=== PATIENT | male | born 1980 | race Caucasian/White ===

== ENCOUNTER 2017-11-20 13:37 | Inpatient (IN) | payer OTHER ==
[~2017-11-20] VITALS: Ht 170.2 cm; Wt 74.1 kg
[~2017-11-20 13:37] MED LIST: FLX10 PO; LRT5 PO; METH4PAK4 PO; OXYC-57 PO
[2017-11-20] MEDS ORDERED: LIDOCAINE HCL 2% LOCAL 50ML VIAL ONE (16:43)
[2017-11-20] MEDS: SODIUM CHLORIDE 0.9% 1000ML 1,000 ML IV SCH (17:15)
[2017-11-20 17:16] VITALS: BP 122/74; PULSE 101; TEMP 37.2; BMI 27.6
--- NOTE | 2017-11-20 17:26 | DIAGNOSTIC IMAGING REPORT ---
CHEST ONE VIEW PORTABLE CLINICAL HISTORY: pleurx dyspnea COMPARISON STUDY: 11/18/2017 FINDINGS: Interval placement of a right basilar drainage catheter. Persistent diffuse increase in density right hemithorax. Left lung remains generally clear. Central catheter remains in this. Vena cava. IMPRESSION: Drainage catheter placed right lung base. No evidence for pneumothorax. The above report was generated using voice recognition software. It may contain grammatical, syntax or spelling errors. Electronically signed by: Jovi Tucker M.D. 11/20/2017 5:24 PM Dictated Date/Time: 11/20/2017 5:23 PM
--- NOTE | 2017-11-20 17:31 | History and Physical ---
History & Physical Date of Service Nov 20, 2017. History & Physical H & P Dictated #[id number]
--- NOTE | 2017-11-20 17:39 | History and Physical ---
History & Physical Date of Service Nov 20, 2017. History & Physical Admission Note: Is a 37-year-old male with past medical history significant for alcohol abuse who developed diverticulitis and underwent colon resection last May at [facility]. He had a colostomy which was reversed on 10/30/2017. He is running to multiple problems since that time. He had to be reexplored had an intra-abdominal abscess and grew out VRE from his wound as well as E. coli. I was called as it appeared he had developed a right pleural empyema and they have no thoracic surgeon there to address this problem. I told him to transfer the patient to [facility]. His bowel function appears to have finally come back. NG tube removed 48 hours ago. He states he had a bowel movement today. He still has a leukocytosis. CT scan showed a complex fluid in his right base but no apparent intra-abdominal collection. He has 3 drains in the draining very little. His wound was left open he has retention sutures in but quite frankly, the wound itself is very clean.. The patient's sister is a [employer] and I had a long discussion with her about how this empyema could occur. Reactive effusion in his pleural cavity due to his intra- abdominal process could easily be seeded by organisms. At any rate, I am going to place a Pleurx catheter into this loculated effusion as I do not see a thick rind around fluid. It is my hope that the fluid will drain with the Pleurx we will institute the MIST- 2 protocol. I have explained quite frankly to the patient and his sister that if that is not the operating room thoracoscopic decortication evacuation of this empyema. For specifics of this patient's history and physical please refer to Mr. Eliezer Castañeda's initial note.
--- NOTE | 2017-11-20 17:44 | Procedure Note ---
Procedure Note Date of Service Nov 20, 2017.
[2017-11-20 17:53] LABS: HEMATOCRIT 26.2 % (42-52); HEMOGLOBIN 8.3 g/dL (14.0-18.0); WHITE BLOOD COUNT 19.32 K/uL (4.8-10.8)
[2017-11-20 17:54] LABS: MEAN CELL VOLUME 94.9 fL (80-100); MEAN CORPUSCULAR HEMOGLOBIN 30.1 pg (25-34); MEAN CORPUSCULAR HGB CONC 31.7 g/dl (32-36); MEAN PLATELET VOLUME 8.2 fL (7.4-10.4); PLATELET COUNT 884 K/uL (130-400); RED CELL DISTRIBUTION WIDTH CV 15.6 % (11.5-14.5); RED CELL DISTRIBUTION WIDTH SD 54.2 fL (36.4-46.3)
[2017-11-20 17:58] LABS: PLEURAL FLUID TOTAL PROTEIN 4.7 g/dl
[2017-11-20 18:00] VITALS: BP 124/74; PULSE 99; TEMP 37.1; O2SAT 97
[2017-11-20] MEDS ORDERED: DORNASE ALFA 5 ML in SYRINGE 25 ML IPL SCH (18:00)
[2017-11-20] MEDS ORDERED: CEFEPIME IV 1,000 MG in SYRINGE 0 ML IV SCH (18:00)
[2017-11-20 18:07] LABS: INR 1.1 (0.9-1.1)
[2017-11-20] MEDS: ACETAMINOPHEN IV 1,000 MG in EMPTY BAG 0 ML IV SCH (18:23)
--- NOTE | 2017-11-20 18:34 | Critical Care Consultation ---
Critical Care Consultation Date of Consultation: Nov 20, 2017. Attending Physician: Dav Strong MD Reason for Consultation: Empyema History of Present Illness 37 year-old male transferred from [facility] for management of empyema. He has an extensive recent surgical history at [facility]. In May of last year he had Trujillo procedure for diverticulitis, reversed last month on 10/30. Course complicated by intraabdominal abscess formation, requiring reexploration. Developed complex right pleural effusion, suspicious for empyema , was transferred here for thoracic surgery. PleurX catheter was just inserted, drained approx 100 ml of purulent fluid with gas, pH was 7.1 At [facility] he was on cefepime and ampicillin. Renal failure has been improving, with high urinary output Grew E Coli and VRE from the abdominal wound Two days ago he was started on clear liquids but were held because he developed emesis. Used to be on TPN Past Medical/Surgical History ETOH abuse Diverticular abscess, s/p colon resection with colostomy in May 2017. Reversal of colostomy Abdominal abscess drainage Social History Smoking Status: Current Every Day Smoker Allergies Coded Allergies: No Known Allergies (Unverified , 02/13/08) Home Medications Scheduled Cyclobenzaprine Hcl (Flexeril *), 10 MG PO TID Cyclobenzaprine Hcl (Flexeril *), 10 MG PO TID Hydrocodone/Acetaminophen 5MG/500MG (Vicodin 5MG/500MG), 1-2 TABLETS PO Q4-6HR PRN Methylprednisolone Dosepak (Medrol Dosepak), 0 PKT PO DAILY Oxycodone/Acetaminophen 5MG/325MG (Percocet 5MG/325MG), 1-2 TABLETS PO Q4-6HR PRN Miscellaneous Medications None (Patient States No Home Meds) Current Inpatient Medications Current Inpatient Medications Medications (Trade) Dose Ordered Sig/Porsche Route Start Time Stop Time Status Last Admin Dose Admin Heparin Sodium (Porcine) (Heparin Sq 5000 Unit/0.5ml) 5,000 unit Q12H SQ 11/20/17 17:15 12/20/17 17:14 UNV Alteplase, Recombinant 10 mg/ Syringe 60 ml @ 0 mls/hr Q12@0600,1800 IPL 11/20/17 18:00 11/23/17 06:01 Dornase Judd 5 ml/ Syringe 30 ml @ 0 mls/hr Q12@0600,1800 IPL 11/20/17 18:00 11/23/17 06:01 Sodium Chloride 1,000 ml @ 125 mls/hr Q8H IV 11/20/17 17:15 12/20/17 17:14 Nicotine (Nicoderm Cq 21MG Patch) 1 patch QAM TD 11/21/17 09:00 12/21/17 08:59 Cefepime HCl 1000 mg/Syringe 11 ml @ 5.5 mls/min DAILY@1800 IV 11/20/17 18:00 11/27/17 17:59 Miscellaneous (Remove Nicoderm Patch) 1 ea HS N/A 11/20/17 21:00 12/20/17 20:59 Linezolid 600 mg/ Prmx 300 ml @ 300 mls/hr Q12@0800,2000 IV 11/20/17 20:00 11/27/17 19:59 Acetaminophen 1000 mg/Empty Bag 100 ml @ 400 mls/hr Q8H IV 11/20/17 18:00 12/20/17 17:59 Pantoprazole Sodium 40 mg/ Syringe 10 ml @ 5 mls/min DAILY@11 IV 11/21/17 11:00 12/21/17 10:59 Ondansetron HCl (Zofran Inj) 4 mg Q6H PRN IV 11/20/17 17:15 12/20/17 17:14 Morphine Sulfate (MoRPHine SULFATE INJ) 2 mg Q3H PRN IV 11/20/17 17:15 12/04/17 17:14 Metronidazole 500 mg/Prmx 100 ml @ 100 mls/hr Q8H IV 11/20/17 20:00 11/27/17 19:59 Review of Systems Constitutional: No fever, No chills Respiratory: + shortness of breath Cardiovascular: No chest pain Abdomen: + pain, + nausea, + vomiting Genitourinary - Male: No hematuria Neurologic: No weakness Physical Exam Date Time Temp Pulse Resp B/P (MAP) Pulse Ox O2 Delivery O2 Flow Rate FiO2 11/20/17 17:16 37.2 101 18 122/74 Nasal Cannula 2.0 General: Young male, in mild distress Heent: NC/AT Lungs: Diminished breath sounds on the right, fairly clear. Right sided PleurX CVS:S1S2 regular Abd: Laparotomy wound with retention sutures. 3 drains Ext: Right arm PICC Skin: extensive tattoo work [employer]IM[employer]IVE: No deficit. Laboratory Results Last 24 Hours Test 11/20/17 16:50 11/20/17 17:34 Pleural Fluid Source RIGHT LUNG Pleural Fluid Color RED Pleural Fluid Appearance BLOODY Pleural Fluid WBC 1001 /uL Pleural Fluid RBC 89313 /uL Pleural Fluid pH 7.09 Pleural Fluid Polynuclear WBCs % 84.7 % Pleural Fluid Mononuclear WBCs % 15.3 % Pleural Fluid Total Protein 4.7 g/dl Pleural Fluid Glucose 27 mg/dl Pleural Fluid Amylase 35 U/L White Blood Count 19.32 K/uL Red Blood Count 2.76 M/uL Hemoglobin 8.3 g/dL Hematocrit 26.2 % Mean Corpuscular Volume 94.9 fL Mean Corpuscular Hemoglobin 30.1 pg Mean Corpuscular Hemoglobin Concent 31.7 g/dl RDW Standard Deviation 54.2 fL RDW Coefficient of Variation 15.6 % Platelet Count 884 K/uL Mean Platelet Volume 8.2 fL Diagnostic Results CXR today: Interval placement of a right basilar drainage catheter. Persistent diffuse increase in density right hemithorax. Left lung remains generally clear. Central catheter remains in this. Vena cava. Assessment & Plan Abdominal abscess, post colectomy Right sided empyema H/o alcohol abuse Plan: Maintain PleurX Starting MIST 2 protocol (dornase with tPA infiltration), to attempt to break- up the loculations. Otherwise, he would require VATS Empiric broad spectrum coverage. Started Zyvox, continue cefepime, added Flagyl for anaerobic coverage Follow up culture of pleural fluid General surgery consult DVT prophylaxis: SC heparin Critical care time spent with the patient, reviewing chart, discussing with sister, excluding procedures, greater than 35 minutes
[2017-11-20] MEDS: ALTEPLASE, RECOMBINANT 10 MG in SYRINGE 50 ML IPL SCH (18:50)
[2017-11-20 19:14] LABS: CREATININE 2.29 mg/dl (0.60-1.40)
[2017-11-20 20:00] VITALS: PULSE 92; TEMP 36.6; O2SAT 95
[2017-11-20] MEDS ORDERED: ALTEPLASE, RECOMBINANT 1 MG/ML 2 ML VIAL IV ONE (20:15)
[2017-11-20] MEDS: LINEZOLID / D5W 600 MG in PREMIXED IN D5W 300 ML IV SCH (21:29)
[2017-11-20] MEDS: METRONIDAZOLE / NSS 500 MG in PREMIXED NSS 100 ML IV SCH (21:29)
[2017-11-20] MEDS: HEPARIN SOD 5000 UNIT/0.5 ML CARP SQ SCH (21:30)
[2017-11-20 22:00] VITALS: PULSE 101; O2SAT 96
[2017-11-20] MEDS: DORNASE ALFA 5 ML in SYRINGE 25 ML IPL SCH (22:22)
[2017-11-20] MEDS: MoRPHine SULFATE 2 MG/ML CARP IV PRN (22:27)
[2017-11-21] VITALS (29 sets, daily range): BP systolic 110–148; BP diastolic 69–95; PULSE 90–112; TEMP 36.3–37.5; O2SAT 92–100; Ht 170.2 cm; Wt 74.1 kg
[2017-11-21] MEDS ORDERED: MoRPHine SULFATE 2 MG/ML CARP IV STA ×2 (00:05→07:11)
[2017-11-21] MEDS: SODIUM CHLORIDE 0.9% 1000ML 1,000 ML IV SCH (03:06)
[2017-11-21] MEDS: ACETAMINOPHEN IV 1,000 MG in EMPTY BAG 0 ML IV SCH ×3 (03:07→17:48)
[2017-11-21 05:30] LABS: HEMATOCRIT 23.5 % (42-52); HEMOGLOBIN 7.4 g/dL (14.0-18.0); MEAN CELL VOLUME 95.1 fL (80-100); MEAN CORPUSCULAR HGB CONC 31.5 g/dl (32-36); MEAN PLATELET VOLUME 8.3 fL (7.4-10.4); PLATELET COUNT 756 K/uL (130-400); RED CELL DISTRIBUTION WIDTH CV 15.2 % (11.5-14.5); WHITE BLOOD COUNT 20.25 K/uL (4.8-10.8)
[2017-11-21] MEDS: ALTEPLASE, RECOMBINANT 10 MG in SYRINGE 50 ML IPL SCH ×2 (05:55→17:55)
[2017-11-21] MEDS: METRONIDAZOLE / NSS 500 MG in PREMIXED NSS 100 ML IV SCH (05:56)
[2017-11-21] MEDS: MoRPHine SULFATE 2 MG/ML CARP IV PRN ×9 (05:56→23:55)
[2017-11-21 05:58] LABS: BASO % 0.2 %; BASO ABS # 0.04 K/uL (0-0.2); EOS % 0.4 %; EOS ABS # 0.09 K/uL (0-0.5); IG# 0.08 K/uL (0.00-0.02); LYMPH % 10.6 %; LYMPH ABS # 2.14 K/uL (1.2-3.4); MONO % 5.9 %; NEUT % 82.5 %
[2017-11-21 06:02] LABS: CALCIUM 7.4 mg/dl (8.5-10.1); CREATININE 1.94 mg/dl (0.60-1.40); PHOSPHORUS 5.4 mg/dl (2.5-4.9); POTASSIUM 3.9 mmol/L (3.5-5.1)
--- NOTE | 2017-11-21 07:07 | DIAGNOSTIC IMAGING REPORT ---
CHEST ONE VIEW PORTABLE CLINICAL HISTORY: sob EMPYEMA COMPARISON STUDY: 11/20/2017 FINDINGS: The heart remains enlarged. There is a right-sided PICC catheter present. There is a right-sided pleural catheter present.[ There are consolidative changes at the right medial lung base. There is improving aeration of the right lung. There is a pleural/extrapleural opacity at the right base laterally. Patchy airspace opacities are visualized at left lung base, atelectatic versus inflammatory. IMPRESSION: 1. Improving aeration the right lung with persistent consolidative changes at the right medial lung base 2. 5 cm Pleural/extrapleural opacity at the right lung base laterally 3. A right-sided pleural catheter is again visualized 4. Patchy airspace opacities at the left lung base, atelectatic versus inflammatory Electronically signed by: Mitchell Baldwin M.D. 11/21/2017 7:05 AM Dictated Date/Time: 11/21/2017 7:03 AM
[2017-11-21] MEDS ORDERED: MAGNESIUM SULFATE 1GM / D5W 1 GM in PREMIXED IN D5W 100 ML IV STA (08:32)
--- NOTE | 2017-11-21 08:55 | Progress Note ---
Progress Note Date of Service Nov 21, 2017. Progress Note Patient is complaining of pain in his back replaced Pleurx. He remains on 2 L of O2 with 9 96 to 100% saturations. Heart rate is in the 90s to the 1 teens. He is afebrile. His maximal temperature is 37.5. His white count on presentation was 19,320 and this is up to 20,250 which is not surprising. He denies nausea or vomiting. His abdominal wound is nice and clean. He is draining very little from his abdominal drains. The pleural fluid is an exudate with a pH of 7.09. He definitely has an empyema although we see no organisms on the Gram stain. The glucose was only 27. After the institution of the TPA and Pulmozyme, the Pleurx drain 650 cc last night and about 150 this morning. His x-ray looks much better. Assessment/Plan: We are going to continue the mist-2 protocol. He appears to be responding to this. I will keep an eye on his hemoglobin as well as his renal function but he appears to be better to me. I am very pleased with his x-ray.
[2017-11-21] MEDS: NICOTINE 21 MG/24 HR TDSY TD SCH (09:23)
[2017-11-21] MEDS: DORNASE ALFA 5 ML in SYRINGE 25 ML IPL SCH ×2 (09:23→21:23)
[2017-11-21] MEDS: HEPARIN SOD 5000 UNIT/0.5 ML CARP SQ SCH ×2 (09:24→21:24)
[2017-11-21] MEDS: LINEZOLID / D5W 600 MG in PREMIXED IN D5W 300 ML IV SCH ×2 (09:27→20:11)
[2017-11-21] MEDS: NORMOSOL R 1,000 ML IV SCH ×2 (09:33→21:27)
[2017-11-21 09:43] LABS: HEMATOCRIT 29.3 % (42-52); HEMOGLOBIN 9.3 g/dL (14.0-18.0)
--- NOTE | 2017-11-21 09:52 | Medical Consult ---
Consultation Date of Consultation: Nov 21, 2017. Attending Physician: Dav Strong MD History of Present Illness 37 y/o male transferred from [facility] to the Thoracic service last evening for right empyema. This is likely related to recent colostomy reversal on Oct 30. He was taken back to the OR on 11/06 for septic picture with free air, although exploration was apparently negative and multiple drains were placed. PleurX was placed last evening. His pain has been marginally controlled overnight and adjustment was made to his morphine this morning. He was on clear liquids prior to transfer. Bowels have started to move and he is having increasing flatus. Past Medical/Surgical History Past medical history ETOH abuse Diverticular abscess, s/p colon resection with colostomy in May 2017. Reversal of colostomy 10/30/17 Abdominal exploration and drainage 11/06/17 Social History Smoking Status: Current Every Day Smoker Allergies Coded Allergies: No Known Allergies (Unverified , 02/13/08) Current Inpatient Medications Current Inpatient Medications Medications (Trade) Dose Ordered Sig/Porsche Route Start Time Stop Time Status Last Admin Dose Admin Heparin Sodium (Porcine) (Heparin Sq 5000 Unit/0.5ml) 5,000 unit Q12 SQ 11/20/17 21:00 12/20/17 20:59 11/20/17 21:30 5,000 UNIT Alteplase, Recombinant 10 mg/ Syringe 60 ml @ 0 mls/hr Q12@0600,1800 IPL 11/20/17 18:00 11/23/17 06:01 11/21/17 05:55 60 MLS/HR Nicotine (Nicoderm Cq 21MG Patch) 1 patch QAM TD 11/21/17 09:00 12/21/17 08:59 Cefepime HCl 1000 mg/Syringe 11 ml @ 5.5 mls/min DAILY@1800 IV 11/20/17 18:00 11/27/17 17:59 11/20/17 18:22 5.5 MLS/MIN Miscellaneous (Remove Nicoderm Patch) 1 ea HS N/A 11/20/17 21:00 12/20/17 20:59 11/20/17 21:29 1 EA Linezolid 600 mg/ Prmx 300 ml @ 300 mls/hr Q12@0800,2000 IV 11/20/17 20:00 11/27/17 19:59 11/20/17 21:29 300 MLS/HR Acetaminophen 1000 mg/Empty Bag 100 ml @ 400 mls/hr Q8H IV 11/20/17 18:00 12/20/17 17:59 11/21/17 03:07 400 MLS/HR Pantoprazole Sodium 40 mg/ Syringe 10 ml @ 5 mls/min DAILY@11 IV 11/21/17 11:00 12/21/17 10:59 Ondansetron HCl (Zofran Inj) 4 mg Q6H PRN IV 11/20/17 17:15 12/20/17 17:14 Metronidazole 500 mg/Prmx 100 ml @ 100 mls/hr Q8H IV 11/20/17 20:00 11/27/17 19:59 11/21/17 05:56 100 MLS/HR Dornase Judd 5 ml/ Syringe 30 ml @ 0 mls/hr Q12@0900,2100 IPL 11/20/17 22:00 11/23/17 09:01 11/20/17 22:22 30 MLS/HR Morphine Sulfate (MoRPHine SULFATE INJ) 2 mg Q2H PRN IV 11/21/17 08:00 12/05/17 07:59 Magnesium Sulfate 1 gm/Prmx 100 ml @ 100 mls/hr NOW STAT IV 11/21/17 08:32 11/21/17 09:31 Parenteral Electrolyte Solution 1,000 ml @ 100 mls/hr Q10H IV 11/21/17 09:15 12/21/17 09:14 Review of Systems Constitutional: No fever, No chills Physical Exam Date Time Temp Pulse Resp B/P (MAP) Pulse Ox O2 Delivery O2 Flow Rate FiO2 11/21/17 06:00 93 22 132/95 (107) 100 Nasal Cannula 2.0 11/21/17 04:00 37.5 102 24 110/69 (83) 96 Nasal Cannula 2.0 11/21/17 04:00 Nasal Cannula 2.0 11/21/17 02:00 112 20 148/93 (111) 96 Nasal Cannula 2.0 11/21/17 00:01 36.5 111 48 138/93 (108) 92 Nasal Cannula 2.0 11/20/17 23:59 Nasal Cannula 2.0 3/5/18 22:00 101 22 96 Nasal Cannula 2.0 11/20/17 20:00 Nasal Cannula 2.0 11/20/17 20:00 36.6 92 24 95 Nasal Cannula 2.0 11/20/17 18:00 37.1 99 18 124/74 (91) 97 Nasal Cannula 2.0 11/20/17 17:16 37.2 101 18 122/74 Nasal Cannula 2.0 General Appearance: + mild distress Abdomen/GI: soft, + distended (mildly), + pertinent finding (retention sutures , TERRA drains exiting from 4 adbominal quadrants with minimal drainage although RUQ drain appears bilious) Extremities/Musculoskelatal: normal inspection Neurologic/Psych: alert, oriented x 3 Laboratory Results Last 24 Hours Test 11/20/17 16:50 11/20/17 17:34 11/20/17 18:35 11/21/17 00:37 Pleural Fluid Source RIGHT LUNG Pleural Fluid Color RED Pleural Fluid Appearance BLOODY Pleural Fluid WBC 1001 /uL Pleural Fluid RBC 45630 /uL Pleural Fluid pH 7.09 Pleural Fluid Polynuclear WBCs % 84.7 % Pleural Fluid Mononuclear WBCs % 15.3 % Pleural Fluid Total Protein 4.7 g/dl Pleural Fluid LDH 454 IU Pleural Fluid Glucose 27 mg/dl Pleural Fluid Amylase 35 U/L White Blood Count 19.32 K/uL Red Blood Count 2.76 M/uL Hemoglobin 8.3 g/dL Hematocrit 26.2 % Mean Corpuscular Volume 94.9 fL Mean Corpuscular Hemoglobin 30.1 pg Mean Corpuscular Hemoglobin Concent 31.7 g/dl RDW Standard Deviation 54.2 fL RDW Coefficient of Variation 15.6 % Platelet Count 884 K/uL Mean Platelet Volume 8.2 fL Prothrombin Time 11.6 SECONDS Prothromb Time International Ratio 1.1 Activated Partial Thromboplast Time 28.0 SECONDS Partial Thromboplastin Ratio 1.1 Creatinine 2.29 mg/dl Est Creatinine Clear Calc Drug Dose 44.7 ml/min Estimated GFR () 40.7 Estimated GFR (Non- 35.2 Bedside Glucose 104 mg/dl Test 11/21/17 05:14 11/21/17 06:43 11/21/17 09:26 White Blood Count 20.25 K/uL Red Blood Count 2.47 M/uL Hemoglobin 7.4 g/dL Hematocrit 23.5 % Mean Corpuscular Volume 95.1 fL Mean Corpuscular Hemoglobin 30.0 pg Mean Corpuscular Hemoglobin Concent 31.5 g/dl Platelet Count 756 K/uL Mean Platelet Volume 8.3 fL Neutrophils (%) (Auto) 82.5 % Lymphocytes (%) (Auto) 10.6 % Monocytes (%) (Auto) 5.9 % Eosinophils (%) (Auto) 0.4 % Basophils (%) (Auto) 0.2 % Neutrophils # (Auto) 16.70 K/uL Lymphocytes # (Auto) 2.14 K/uL Monocytes # (Auto) 1.20 K/uL Eosinophils # (Auto) 0.09 K/uL Basophils # (Auto) 0.04 K/uL RDW Standard Deviation 53.0 fL RDW Coefficient of Variation 15.2 % Immature Granulocyte % (Auto) 0.4 % Immature Granulocyte # (Auto) 0.08 K/uL Red Blood Cell Morphology Unremarkable Sodium Level 143 mmol/L Potassium Level 3.9 mmol/L Chloride Level 114 mmol/L Carbon Dioxide Level 20 mmol/L Anion Gap 9.0 mmol/L Blood Urea Nitrogen 19 mg/dl Creatinine 1.94 mg/dl Est Creatinine Clear Calc Drug Dose 52.8 ml/min Estimated GFR () 49.8 Estimated GFR (Non- 43.0 BUN/Creatinine Ratio 9.6 Random Glucose 84 mg/dl Lactic Acid Level 0.4 mmol/L Calcium Level 7.4 mg/dl Phosphorus Level 5.4 mg/dl Magnesium Level 1.6 mg/dl Procalcitonin 0.53 ng/ml Bedside Glucose 89 mg/dl Assessment & Plan 1. right empyema 2. s/p colostomy takedown and re-exploration Seen by Dr. Cruz earlier this morning. Tolerated liquid breakfast, will advance slowly over the next several days. His abdomen is benign. Maintain all TERRA/Nelson drains at this time.
[2017-11-21] MEDS: PANTOprazole INJ 40 MG in SYRINGE 0 ML IV SCH (10:58)
--- NOTE | 2017-11-21 11:04 | Medical Consult ---
Consultation Date of Consultation: Nov 21, 2017. Attending Physician: Dav Strong MD Reason for Consultation: empyema History of Present Illness 37-year-old male with history of prior alcohol abuse, with recurrent diverticulitis status post Pepe procedure May 2017, readmitted in October for reversal with course complicated by development of intra-abdominal abscess with re-exploration more recently without new collection found. Patient has developed evidence of right empyema, and has now undergone drainage with pleural catheter. Cultures from this procedure are pending. Prior cultures from recent hospitalization have grown E coli and enterococcal species. Patient has been started on Zyvox, cefepime, and metronidazole. Blood cultures are pending. Patient complaining of abdominal pain, currently 5/ 10 in intensity. No current fever. Past Medical/Surgical History Past Medical/Surgical History Past medical history ETOH abuse Diverticular abscess, s/p colon resection with colostomy in May 2017. Reversal of colostomy 10/30/17 Abdominal exploration and drainage 11/06/17 Family History Noncontributory Social History Smoking Status: Current Every Day Smoker Allergies Coded Allergies: No Known Allergies (Unverified , 02/13/08) Current Inpatient Medications Current Inpatient Medications Medications (Trade) Dose Ordered Sig/Porsche Route Start Time Stop Time Status Last Admin Dose Admin Heparin Sodium (Porcine) (Heparin Sq 5000 Unit/0.5ml) 5,000 unit Q12 SQ 11/20/17 21:00 12/20/17 20:59 11/21/17 09:24 5,000 UNIT Alteplase, Recombinant 10 mg/ Syringe 60 ml @ 0 mls/hr Q12@0600,1800 IPL 11/20/17 18:00 11/23/17 06:01 11/21/17 05:55 60 MLS/HR Nicotine (Nicoderm Cq 21MG Patch) 1 patch QAM TD 11/21/17 09:00 12/21/17 08:59 11/21/17 09:23 1 PATCH Miscellaneous (Remove Nicoderm Patch) 1 ea HS N/A 11/20/17 21:00 12/20/17 20:59 11/20/17 21:29 1 EA Linezolid 600 mg/ Prmx 300 ml @ 300 mls/hr Q12@0800,2000 IV 11/20/17 20:00 11/27/17 19:59 11/21/17 09:27 300 MLS/HR Acetaminophen 1000 mg/Empty Bag 100 ml @ 400 mls/hr Q8H IV 11/20/17 18:00 12/20/17 17:59 11/21/17 09:31 400 MLS/HR Pantoprazole Sodium 40 mg/ Syringe 10 ml @ 5 mls/min DAILY@11 IV 11/21/17 11:00 12/21/17 10:59 Ondansetron HCl (Zofran Inj) 4 mg Q6H PRN IV 11/20/17 17:15 12/20/17 17:14 Dornase Judd 5 ml/ Syringe 30 ml @ 0 mls/hr Q12@0900,2100 IPL 11/20/17 22:00 11/23/17 09:01 11/21/17 09:23 30 MLS/HR Morphine Sulfate (MoRPHine SULFATE INJ) 2 mg Q2H PRN IV 11/21/17 08:00 12/05/17 07:59 11/21/17 09:33 2 MG Parenteral Electrolyte Solution 1,000 ml @ 100 mls/hr Q10H IV 11/21/17 09:15 12/21/17 09:14 11/21/17 09:33 100 MLS/HR Imipenem/ Cilastatin Sodium 500 mg/Dextrose 120 ml @ 100 mls/hr Q8H IV 11/21/17 12:00 11/28/17 11:59 Review of Systems Constitutional: + weakness, + fatigue, No fever Eyes: No problem reported ENT: No problem reported Respiratory: + shortness of breath Cardiovascular: + chest pain Abdomen: + pain, + nausea, + vomiting Musculoskeletal: No problem reported Genitourinary - Male: No problem reported Neurologic: No problem reported Psychiatric: No problem reported Endocrine: No problem reported Hematologic / Lymphatic: No problem reported Integumentary: No problem reported Allergic / Immunologic: No problem reported Physical Exam Date Time Temp Pulse Resp B/P (MAP) Pulse Ox O2 Delivery O2 Flow Rate FiO2 11/21/17 10:00 102 124/75 (91) 98 Nasal Cannula 3.0 11/21/17 09:01 108 139/85 (103) 100 11/21/17 09:00 108 97 Nasal Cannula 3.0 11/21/17 08:00 36.7 109 133/89 (104) 94 Nasal Cannula 3.0 11/21/17 07:30 96 Nasal Cannula 3.0 11/21/17 07:00 105 133/90 (104) 96 11/21/17 06:00 93 22 132/95 (107) 100 Nasal Cannula 2.0 11/21/17 04:00 37.5 102 24 110/69 (83) 96 Nasal Cannula 2.0 11/21/17 04:00 Nasal Cannula 2.0 11/21/17 02:00 112 20 148/93 (111) 96 Nasal Cannula 2.0 11/21/17 00:01 36.5 111 48 138/93 (108) 92 Nasal Cannula 2.0 11/20/17 23:59 Nasal Cannula 2.0 11/20/17 22:00 101 22 96 Nasal Cannula 2.0 11/20/17 20:00 Nasal Cannula 2.0 11/20/17 20:00 36.6 92 24 95 Nasal Cannula 2.0 11/20/17 18:00 37.1 99 18 124/74 (91) 97 Nasal Cannula 2.0 11/20/17 17:16 37.2 101 18 122/74 Nasal Cannula 2.0 General Appearance: no apparent distress, + pertinent finding (chronically ill- appearing) Head: normocephalic, atraumatic Eyes: normal inspection, EOMI, sclerae normal ENT: normal ENT inspection, hearing grossly normal, pharynx normal Neck: supple, no adenopathy, thyroid normal, trachea midline Respiratory/Chest: chest non-tender, no respiratory distress, no accessory muscle use, + decreased breath sounds (right), + pertinent finding (right CT) Cardiovascular: regular rate, rhythm, no gallop, no murmur Abdomen/GI: normal bowel sounds, soft, no organomegaly, + tenderness, + pertinent finding ([address]) Back: normal inspection, no CVA tenderness Extremities/Musculoskelatal: normal inspection, no calf tenderness, normal capillary refill, non-tender Neurologic/Psych: alert, oriented x 3 Skin: normal color, warm/dry, no rash, + pertinent finding (surgical wounds clean) Lymphatic: no adenopathy Laboratory Results Date/Time Source Procedure Growth Status 11/20/17 16:10 Nasal MRSA DNA Surveillance Screen - Final Specimen Negative for MRSA by DNA Probe Complete 11/20/17 16:50 Pleural Fluid (Thoracentesis) Right Fungal Smear - Final Resulted 11/20/17 16:50 Pleural Fluid (Thoracentesis) Right Fungal Culture Pending Resulted 11/20/17 16:50 Pleural Fluid (Thoracentesis) Right Acid Fast Stain Pending Received 11/20/17 16:50 Pleural Fluid (Thoracentesis) Right Mycobacterial Culture Pending Received 11/20/17 16:50 Pleural Fluid (Thoracentesis) Right Gram Stain - Final Resulted 11/20/17 16:50 Pleural Fluid (Thoracentesis) Right Bacterial Culture Pending Resulted Last 24 Hours Test 11/20/17 16:50 11/20/17 17:34 11/20/17 18:35 11/21/17 00:37 Pleural Fluid Source RIGHT LUNG Pleural Fluid Color RED Pleural Fluid Appearance BLOODY Pleural Fluid WBC 1001 /uL Pleural Fluid RBC 63302 /uL Pleural Fluid pH 7.09 Pleural Fluid Polynuclear WBCs % 84.7 % Pleural Fluid Mononuclear WBCs % 15.3 % Pleural Fluid Total Protein 4.7 g/dl Pleural Fluid LDH 454 IU Pleural Fluid Glucose 27 mg/dl Pleural Fluid Amylase 35 U/L White Blood Count 19.32 K/uL Red Blood Count 2.76 M/uL Hemoglobin 8.3 g/dL Hematocrit 26.2 % Mean Corpuscular Volume 94.9 fL Mean Corpuscular Hemoglobin 30.1 pg Mean Corpuscular Hemoglobin Concent 31.7 g/dl RDW Standard Deviation 54.2 fL RDW Coefficient of Variation 15.6 % Platelet Count 884 K/uL Mean Platelet Volume 8.2 fL Prothrombin Time 11.6 SECONDS Prothromb Time International Ratio 1.1 Activated Partial Thromboplast Time 28.0 SECONDS Partial Thromboplastin Ratio 1.1 Creatinine 2.29 mg/dl Est Creatinine Clear Calc Drug Dose 44.7 ml/min Estimated GFR () 40.7 Estimated GFR (Non- 35.2 Bedside Glucose 104 mg/dl Test 11/21/17 05:14 11/21/17 06:43 11/21/17 09:26 White Blood Count 20.25 K/uL Red Blood Count 2.47 M/uL Hemoglobin 7.4 g/dL 9.3 g/dL Hematocrit 23.5 % 29.3 % Mean Corpuscular Volume 95.1 fL Mean Corpuscular Hemoglobin 30.0 pg Mean Corpuscular Hemoglobin Concent 31.5 g/dl Platelet Count 756 K/uL Mean Platelet Volume 8.3 fL Neutrophils (%) (Auto) 82.5 % Lymphocytes (%) (Auto) 10.6 % Monocytes (%) (Auto) 5.9 % Eosinophils (%) (Auto) 0.4 % Basophils (%) (Auto) 0.2 % Neutrophils # (Auto) 16.70 K/uL Lymphocytes # (Auto) 2.14 K/uL Monocytes # (Auto) 1.20 K/uL Eosinophils # (Auto) 0.09 K/uL Basophils # (Auto) 0.04 K/uL RDW Standard Deviation 53.0 fL RDW Coefficient of Variation 15.2 % Immature Granulocyte % (Auto) 0.4 % Immature Granulocyte # (Auto) 0.08 K/uL Red Blood Cell Morphology Unremarkable Sodium Level 143 mmol/L Potassium Level 3.9 mmol/L Chloride Level 114 mmol/L Carbon Dioxide Level 20 mmol/L Anion Gap 9.0 mmol/L Blood Urea Nitrogen 19 mg/dl Creatinine 1.94 mg/dl Est Creatinine Clear Calc Drug Dose 52.8 ml/min Estimated GFR () 49.8 Estimated GFR (Non- 43.0 BUN/Creatinine Ratio 9.6 Random Glucose 84 mg/dl Lactic Acid Level 0.4 mmol/L Calcium Level 7.4 mg/dl Phosphorus Level 5.4 mg/dl Magnesium Level 1.6 mg/dl Procalcitonin 0.53 ng/ml Bedside Glucose 89 mg/dl [~ rep ct add3]] CHEST ONE VIEW PORTABLE CLINICAL HISTORY: sob EMPYEMA COMPARISON STUDY: 11/20/2017 FINDINGS: The heart remains enlarged. There is a right-sided PICC catheter present. There is a right-sided pleural catheter present.[ There are consolidative changes at the right medial lung base. There is improving aeration of the right lung. There is a pleural/extrapleural opacity at the right base laterally. Patchy airspace opacities are visualized at left lung base, atelectatic versus inflammatory. IMPRESSION: 1. Improving aeration the right lung with persistent consolidative changes at the right medial lung base 2. 5 cm Pleural/extrapleural opacity at the right lung base laterally 3. A right-sided pleural catheter is again visualized 4. Patchy airspace opacities at the left lung base, atelectatic versus inflammatory Electronically signed by: Mitchell Baldwin M.D. 11/21/2017 7:05 AM Assessment & Plan Right empyema following multiple surgeries for diverticulitis/abscess, now s/p Pleur-X drainage. Linezolid and imipenem appropriate pending further cultures given prolonged hospitalization. Will follow.
[2017-11-21] MEDS: IMIPENEM-CILASTATIN 500 MG in DEXTROSE 5% 100ML 100 ML IV SCH ×2 (11:36→20:11)
--- NOTE | 2017-11-21 11:45 | Critical Care Progress Note ---
Critical Care Progress Note Date of Service Nov 21, 2017. Attending Dr. Flor Subjective C/o pain with breathing The PleurX drained 650 ml yesterday Objective General: Young male, in mild distress Heent: NC/AT Lungs: Diminished breath sounds on the right, fairly clear. Right sided PleurX CVS:S1S2 regular Abd: Laparotomy wound with retention sutures. 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 It seems to be working well so far. Empiric broad spectrum coverage. Started Zyvox, continue cefepime, added Flagyl for anaerobic coverage Because he had ESBL E Coli, changed the Cefepime to Primaxin and discontinued the Flagyl Follow up culture of pleural fluid Start clear liquid today, see if he tolerates Leave abdominal drains in for the time being DVT prophylaxis: SC heparin Critical care time spent with the patient, reviewing chart, discussing with sister, excluding procedures, greater than 25 minutes Consults & Procedures Consultants: Thoracic surgery - Dr Strong General surgery - Dr Cruz ID - Dr Jauregui Nephrology - Dr Lam Procedures: 11/20/17 - PleurX Data Medications: Current Inpatient Medications Medications (Trade) Dose Ordered Sig/Porsche Route Start Time Stop Time Status Last Admin Dose Admin Heparin Sodium (Porcine) (Heparin Sq 5000 Unit/0.5ml) 5,000 unit Q12 SQ 11/20/17 21:00 12/20/17 20:59 11/21/17 09:24 5,000 UNIT Alteplase, Recombinant 10 mg/ Syringe 60 ml @ 0 mls/hr Q12@0600,1800 IPL 11/20/17 18:00 11/23/17 06:01 11/21/17 05:55 60 MLS/HR Nicotine (Nicoderm Cq 21MG Patch) 1 patch QAM TD 11/21/17 09:00 12/21/17 08:59 11/21/17 09:23 1 PATCH Miscellaneous (Remove Nicoderm Patch) 1 ea HS N/A 11/20/17 21:00 12/20/17 20:59 11/20/17 21:29 1 EA Linezolid 600 mg/ Prmx 300 ml @ 300 mls/hr Q12@0800,2000 IV 11/20/17 20:00 11/27/17 19:59 11/21/17 09:27 300 MLS/HR Acetaminophen 1000 mg/Empty Bag 100 ml @ 400 mls/hr Q8H IV 11/20/17 18:00 12/20/17 17:59 11/21/17 09:31 400 MLS/HR Pantoprazole Sodium 40 mg/ Syringe 10 ml @ 5 mls/min DAILY@11 IV 11/21/17 11:00 12/21/17 10:59 11/21/17 10:58 5 MLS/MIN Ondansetron HCl (Zofran Inj) 4 mg Q6H PRN IV 11/20/17 17:15 12/20/17 17:14 Dornase Judd 5 ml/ Syringe 30 ml @ 0 mls/hr Q12@0900,2099 IPL 11/20/17 22:00 11/23/17 09:01 11/21/17 09:23 30 MLS/HR Morphine Sulfate (MoRPHine SULFATE INJ) 2 mg Q2H PRN IV 11/21/17 08:00 12/05/17 07:59 11/21/17 09:33 2 MG Parenteral Electrolyte Solution 1,000 ml @ 100 mls/hr Q10H IV 11/21/17 09:15 12/21/17 09:14 11/21/17 09:33 100 MLS/HR Imipenem/ Cilastatin Sodium 500 mg/Dextrose 120 ml @ 100 mls/hr Q8H IV 11/21/17 12:00 11/28/17 11:59 Vital Signs: Date Time Temp Pulse Resp B/P (MAP) Pulse Ox O2 Delivery O2 Flow Rate FiO2 11/21/17 10:00 102 124/75 (91) 98 Nasal Cannula 3.0 11/21/17 09:01 108 139/85 (103) 100 11/21/17 09:00 108 97 Nasal Cannula 3.0 11/21/17 08:00 36.7 109 133/89 (104) 94 Nasal Cannula 3.0 11/21/17 07:30 96 Nasal Cannula 3.0 11/21/17 07:00 105 133/90 (104) 96 11/21/17 06:00 93 22 132/95 (107) 100 Nasal Cannula 2.0 11/21/17 04:00 37.5 102 24 110/69 (83) 96 Nasal Cannula 2.0 11/21/17 04:00 Nasal Cannula 2.0 11/21/17 02:00 112 20 148/93 (111) 96 Nasal Cannula 2.0 11/21/17 00:01 36.5 111 48 138/93 (108) 92 Nasal Cannula 2.0 11/20/17 23:59 Nasal Cannula 2.0 11/20/17 22:00 101 22 96 Nasal Cannula 2.0 11/20/17 20:00 Nasal Cannula 2.0 11/20/17 20:00 36.6 92 24 95 Nasal Cannula 2.0 11/20/17 18:00 37.1 99 18 124/74 (91) 97 Nasal Cannula 2.0 11/20/17 17:16 37.2 101 18 122/74 Nasal Cannula 2.0 Laboratory Results: Last 24 Hours Test 11/20/17 16:50 11/20/17 17:34 11/20/17 18:35 11/21/17 00:37 Pleural Fluid Source RIGHT LUNG Pleural Fluid Color RED Pleural Fluid Appearance BLOODY Pleural Fluid WBC 1001 /uL Pleural Fluid RBC 72369 /uL Pleural Fluid pH 7.09 Pleural Fluid Polynuclear WBCs % 84.7 % Pleural Fluid Mononuclear WBCs % 15.3 % Pleural Fluid Total Protein 4.7 g/dl Pleural Fluid LDH 454 IU Pleural Fluid Glucose 27 mg/dl Pleural Fluid Amylase 35 U/L White Blood Count 19.32 K/uL Red Blood Count 2.76 M/uL Hemoglobin 8.3 g/dL Hematocrit 26.2 % Mean Corpuscular Volume 94.9 fL Mean Corpuscular Hemoglobin 30.1 pg Mean Corpuscular Hemoglobin Concent 31.7 g/dl RDW Standard Deviation 54.2 fL RDW Coefficient of Variation 15.6 % Platelet Count 884 K/uL Mean Platelet Volume 8.2 fL Prothrombin Time 11.6 SECONDS Prothromb Time International Ratio 1.1 Activated Partial Thromboplast Time 28.0 SECONDS Partial Thromboplastin Ratio 1.1 Creatinine 2.29 mg/dl Est Creatinine Clear Calc Drug Dose 44.7 ml/min Estimated GFR () 40.7 Estimated GFR (Non- 35.2 Bedside Glucose 104 mg/dl Test 11/21/17 05:14 11/21/17 06:43 11/21/17 09:26 11/21/17 11:05 White Blood Count 20.25 K/uL Red Blood Count 2.47 M/uL Hemoglobin 7.4 g/dL 9.3 g/dL Hematocrit 23.5 % 29.3 % Mean Corpuscular Volume 95.1 fL Mean Corpuscular Hemoglobin 30.0 pg Mean Corpuscular Hemoglobin Concent 31.5 g/dl Platelet Count 756 K/uL Mean Platelet Volume 8.3 fL Neutrophils (%) (Auto) 82.5 % Lymphocytes (%) (Auto) 10.6 % Monocytes (%) (Auto) 5.9 % Eosinophils (%) (Auto) 0.4 % Basophils (%) (Auto) 0.2 % Neutrophils # (Auto) 16.70 K/uL Lymphocytes # (Auto) 2.14 K/uL Monocytes # (Auto) 1.20 K/uL Eosinophils # (Auto) 0.09 K/uL Basophils # (Auto) 0.04 K/uL RDW Standard Deviation 53.0 fL RDW Coefficient of Variation 15.2 % Immature Granulocyte % (Auto) 0.4 % Immature Granulocyte # (Auto) 0.08 K/uL Red Blood Cell Morphology Unremarkable Sodium Level 143 mmol/L Potassium Level 3.9 mmol/L Chloride Level 114 mmol/L Carbon Dioxide Level 20 mmol/L Anion Gap 9.0 mmol/L Blood Urea Nitrogen 19 mg/dl Creatinine 1.94 mg/dl Est Creatinine Clear Calc Drug Dose 52.8 ml/min Estimated GFR () 49.8 Estimated GFR (Non- 43.0 BUN/Creatinine Ratio 9.6 Random Glucose 84 mg/dl Lactic Acid Level 0.4 mmol/L Calcium Level 7.4 mg/dl Phosphorus Level 5.4 mg/dl Magnesium Level 1.6 mg/dl Procalcitonin 0.53 ng/ml Bedside Glucose 89 mg/dl 150 mg/dl
--- NOTE | 2017-11-21 12:22 | Nephrology Consultation ---
Nephrology Consultation Date & Providers Date of Consultation: Nov 21, 2017. Primary Care Provider: No Doctor, Assigned Referring Provider: Reason for Consultation Evaluation and management for acute kidney injury. History of Present Illness Jerry is a 37-year-old young male with prior history of alcohol abuse, history of recurrent diverticulitis status post Pepe procedure before and no known prior history of chronic kidney disease admitted to the hospital for empyema. Nephrologic consult was requested as his found to have acute kidney injury. Electronic medical records including labs and imaging are reviewed in detail during patient's visit. Jerry has history of prior alcohol abuse with prior history of recurrent diverticulitis. He had Pepe procedure done on May 2017. In October he was readmitted for reversal. Hospital course was complicated by development of intra-abdominal abscess with re-exploration more recently without new collection. He developed evidence of right empyema and transferred to [facility] yesterday for further management. He had PleurX catheter placed and empyema drainage was done yesterday. He has been on Zyvox, cefepime , and metronidazole for recent culture growing E coli and Enterococcus. No known history of chronic kidney disease, on admission yesterday creatinine was 2.3 which improved to 1.9 this morning. Has metabolic acidosis. Other electrolyte including potassium and calcium normal. No urinalysis or renal ultrasound available. Blood pressure has been relatively stable. Currently he is on IV fluid. He has the several TERRA drain in his abdomen with minimum drainage. Has Grimm catheter and he has been voiding normally. No history of hypertension, diabetes or coronary artery disease. No reports of NSAID use recently. Was not on ALEJANDRA-inhibitor or ARB. Currently his complaining of abdominal pain and overall feeling poorly. Allergies Coded Allergies: No Known Allergies (Unverified , 02/13/08) Inpatient Medications Current Inpatient Medications Medications (Trade) Dose Ordered Sig/Porsche Route Start Time Stop Time Status Last Admin Dose Admin Heparin Sodium (Porcine) (Heparin Sq 5000 Unit/0.5ml) 5,000 unit Q12 SQ 11/20/17 21:00 12/20/17 20:59 11/21/17 09:24 5,000 UNIT Alteplase, Recombinant 10 mg/ Syringe 60 ml @ 0 mls/hr Q12@0600,1800 IPL 11/20/17 18:00 11/23/17 06:01 11/21/17 05:55 60 MLS/HR Nicotine (Nicoderm Cq 21MG Patch) 1 patch QAM TD 11/21/17 09:00 12/21/17 08:59 11/21/17 09:23 1 PATCH Miscellaneous (Remove Nicoderm Patch) 1 ea HS N/A 11/20/17 21:00 12/20/17 20:59 11/20/17 21:29 1 EA Linezolid 600 mg/ Prmx 300 ml @ 300 mls/hr Q12@0800,2000 IV 11/20/17 20:00 11/27/17 19:59 11/21/17 09:27 300 MLS/HR Acetaminophen 1000 mg/Empty Bag 100 ml @ 400 mls/hr Q8H IV 11/20/17 18:00 12/20/17 17:59 11/21/17 09:31 400 MLS/HR Pantoprazole Sodium 40 mg/ Syringe 10 ml @ 5 mls/min DAILY@11 IV 11/21/17 11:00 12/21/17 10:59 11/21/17 10:58 5 MLS/MIN Ondansetron HCl (Zofran Inj) 4 mg Q6H PRN IV 11/20/17 17:15 12/20/17 17:14 Dornase Judd 5 ml/ Syringe 30 ml @ 0 mls/hr Q12@0900,2100 IPL 11/20/17 22:00 11/23/17 09:01 11/21/17 09:23 30 MLS/HR Morphine Sulfate (MoRPHine SULFATE INJ) 2 mg Q2H PRN IV 11/21/17 08:00 12/05/17 07:59 11/21/17 11:56 2 MG Parenteral Electrolyte Solution 1,000 ml @ 100 mls/hr Q10H IV 11/21/17 09:15 12/21/17 09:14 11/21/17 09:33 100 MLS/HR Imipenem/ Cilastatin Sodium 500 mg/Dextrose 120 ml @ 100 mls/hr Q8H IV 11/21/17 12:00 11/28/17 11:59 11/21/17 11:36 100 MLS/HR Family History No known family history of chronic kidney disease or end-stage renal disease. Social History Smoking Status: Current Every Day Smoker Review of Systems A complete review of systems was performed. Pertinent positives are noted above. All other systems are negative. Physical Exam Date Time Temp Pulse Resp B/P (MAP) Pulse Ox O2 Delivery O2 Flow Rate FiO2 11/21/17 10:00 102 124/75 (91) 98 Nasal Cannula 3.0 11/21/17 09:01 108 139/85 (103) 100 11/21/17 09:00 108 97 Nasal Cannula 3.0 11/21/17 08:00 36.7 109 133/89 (104) 94 Nasal Cannula 3.0 11/21/17 08:00 Nasal Cannula 11/21/17 07:30 96 Nasal Cannula 3.0 11/21/17 07:00 105 133/90 (104) 96 11/21/17 06:00 93 22 132/95 (107) 100 Nasal Cannula 2.0 11/21/17 04:00 37.5 102 24 110/69 (83) 96 Nasal Cannula 2.0 11/21/17 04:00 Nasal Cannula 2.0 11/21/17 02:00 112 20 148/93 (111) 96 Nasal Cannula 2.0 11/21/17 00:01 36.5 111 48 138/93 (108) 92 Nasal Cannula 2.0 11/20/17 23:59 Nasal Cannula 2.0 11/20/17 22:00 101 22 96 Nasal Cannula 2.0 11/20/17 20:00 Nasal Cannula 2.0 11/20/17 20:00 36.6 92 24 95 Nasal Cannula 2.0 11/20/17 18:00 37.1 99 18 124/74 (91) 97 Nasal Cannula 2.0 11/20/17 17:16 37.2 101 18 122/74 Nasal Cannula 2.0 GENERAL: Young male, AAA x 3, ill-appearing, in mild distress. HEENT: Atraumatic, normocephalic. NECK: Supple, no JVD. ENT: No sinus tenderness MOUTH and THROAT: dry oral mucosa, no oral ulcer or pharyngeal erythema RESPIRATORY: Normal breathing efforts,no wheezes or rales, has PleurX catheter on the right side CARDIOVASCULAR: S1, S2 normal, rate rhythm regular. ABDOMEN: Soft, mild diffuse tenderness, multiple TERRA drain, positive bowel sound. MUSCULOSKELETAL: No joint swelling, erythema or tenderness. Normal range of motion. SKIN: No skin rash EXTREMITY: No lower extremity edema NEURO: No gross focal neurological deficit, speech fluent. PSYCHIATRY: Normal mood and judgment Laboratory Results Last 24 Hours Test 11/20/17 16:50 11/20/17 17:34 11/20/17 18:35 11/21/17 00:37 Pleural Fluid Source RIGHT LUNG Pleural Fluid Color RED Pleural Fluid Appearance BLOODY Pleural Fluid WBC 1001 /uL Pleural Fluid RBC 16972 /uL Pleural Fluid pH 7.09 Pleural Fluid Polynuclear WBCs % 84.7 % Pleural Fluid Mononuclear WBCs % 15.3 % Pleural Fluid Total Protein 4.7 g/dl Pleural Fluid LDH 454 IU Pleural Fluid Glucose 27 mg/dl Pleural Fluid Amylase 35 U/L White Blood Count 19.32 K/uL Red Blood Count 2.76 M/uL Hemoglobin 8.3 g/dL Hematocrit 26.2 % Mean Corpuscular Volume 94.9 fL Mean Corpuscular Hemoglobin 30.1 pg Mean Corpuscular Hemoglobin Concent 31.7 g/dl RDW Standard Deviation 54.2 fL RDW Coefficient of Variation 15.6 % Platelet Count 884 K/uL Mean Platelet Volume 8.2 fL Prothrombin Time 11.6 SECONDS Prothromb Time International Ratio 1.1 Activated Partial Thromboplast Time 28.0 SECONDS Partial Thromboplastin Ratio 1.1 Creatinine 2.29 mg/dl Est Creatinine Clear Calc Drug Dose 44.7 ml/min Estimated GFR () 40.7 Estimated GFR (Non- 35.2 Bedside Glucose 104 mg/dl Test 11/21/17 05:14 11/21/17 06:43 11/21/17 09:26 11/21/17 11:05 White Blood Count 20.25 K/uL Red Blood Count 2.47 M/uL Hemoglobin 7.4 g/dL 9.3 g/dL Hematocrit 23.5 % 29.3 % Mean Corpuscular Volume 95.1 fL Mean Corpuscular Hemoglobin 30.0 pg Mean Corpuscular Hemoglobin Concent 31.5 g/dl Platelet Count 756 K/uL Mean Platelet Volume 8.3 fL Neutrophils (%) (Auto) 82.5 % Lymphocytes (%) (Auto) 10.6 % Monocytes (%) (Auto) 5.9 % Eosinophils (%) (Auto) 0.4 % Basophils (%) (Auto) 0.2 % Neutrophils # (Auto) 16.70 K/uL Lymphocytes # (Auto) 2.14 K/uL Monocytes # (Auto) 1.20 K/uL Eosinophils # (Auto) 0.09 K/uL Basophils # (Auto) 0.04 K/uL RDW Standard Deviation 53.0 fL RDW Coefficient of Variation 15.2 % Immature Granulocyte % (Auto) 0.4 % Immature Granulocyte # (Auto) 0.08 K/uL Red Blood Cell Morphology Unremarkable Sodium Level 143 mmol/L Potassium Level 3.9 mmol/L Chloride Level 114 mmol/L Carbon Dioxide Level 20 mmol/L Anion Gap 9.0 mmol/L Blood Urea Nitrogen 19 mg/dl Creatinine 1.94 mg/dl Est Creatinine Clear Calc Drug Dose 52.8 ml/min Estimated GFR () 49.8 Estimated GFR (Non- 43.0 BUN/Creatinine Ratio 9.6 Random Glucose 84 mg/dl Lactic Acid Level 0.4 mmol/L Calcium Level 7.4 mg/dl Phosphorus Level 5.4 mg/dl Magnesium Level 1.6 mg/dl Procalcitonin 0.53 ng/ml Bedside Glucose 89 mg/dl 150 mg/dl Test 11/21/17 11:45 11/21/17 12:00 Impression (1) Acute kidney injury (2) Metabolic acidosis (3) Anemia (4) Empyema 37-year-old gentlemen with acute kidney injury in the setting of recent multiple hospital admission and surgery for abdominal abscesses, reversal of Pepe procedure and then recent empyema with drainage yesterday. No known history of chronic kidney disease. Currently remain non-oliguric. Blood pressure stable. No renal ultrasound or urinalysis available. No history of NSAID use. On admission creatinine was 2.3 which slightly improved to 1.9 this morning. Acute kidney injury most likely hemodynamically mediated in the setting of recent multiple hospital admissions surgery. Renal function seems to be already improving. Can't exclude other possibilities such as any intrinsic renal disease however seems unlikely as renal function started to improve. Recommendations --Will check urinalysis to see if there is any evidence of proteinuria, hematuria pyuria --continue to monitor renal function daily renal panel --hemodynamics support and avoid hypotension --no further workup at this point Will follow Thank you for allowing me to participate in your patient's care. It was a pleasure to see Jerry
[2017-11-21] MEDS: ONDANSETRON INJ 2 MG/ML 2 ML VIAL IV PRN (22:31)
[2017-11-22] VITALS (29 sets, daily range): BP systolic 90–141; BP diastolic 32–96; PULSE 91–117; TEMP 36.4–36.9; O2SAT 88–99
[2017-11-22] MEDS ORDERED: MoRPHine SULFATE 2 MG/ML CARP IV STA ×2 (00:33→06:51)
[2017-11-22] MEDS: MoRPHine SULFATE 2 MG/ML CARP IV PRN ×8 (00:50→22:51)
[2017-11-22] MEDS: ACETAMINOPHEN IV 1,000 MG in EMPTY BAG 0 ML IV SCH ×3 (02:18→17:28)
[2017-11-22] MEDS: IMIPENEM-CILASTATIN 500 MG in DEXTROSE 5% 100ML 100 ML IV SCH ×3 (04:55→21:13)
[2017-11-22 05:38] LABS: BASO % 0.2 %; BASO ABS # 0.04 K/uL (0-0.2); EOS % 0.5 %; EOS ABS # 0.12 K/uL (0-0.5); HEMATOCRIT 26.3 % (42-52); HEMOGLOBIN 8.4 g/dL (14.0-18.0); IG# 0.17 K/uL (0.00-0.02); LYMPH % 11.1 %; LYMPH ABS # 2.49 K/uL (1.2-3.4); MEAN CELL VOLUME 94.6 fL (80-100); MEAN CORPUSCULAR HEMOGLOBIN 30.2 pg (25-34); MEAN CORPUSCULAR HGB CONC 31.9 g/dl (32-36); MEAN PLATELET VOLUME 8.6 fL (7.4-10.4); MONO ABS # 1.58 K/uL (0.11-0.59); NEUT % 80.4 %; NEUT ABS # 18.13 K/uL (1.4-6.5); PLATELET COUNT 765 K/uL (130-400); RED CELL DISTRIBUTION WIDTH CV 15.2 % (11.5-14.5); WHITE BLOOD COUNT 22.53 K/uL (4.8-10.8)
[2017-11-22 06:07] LABS: ALBUMIN 1.4 gm/dl (3.4-5.0); CALCIUM 8.3 mg/dl (8.5-10.1); CREATININE 1.84 mg/dl (0.60-1.40); POTASSIUM 4.2 mmol/L (3.5-5.1)
[2017-11-22] MEDS: ALTEPLASE, RECOMBINANT 10 MG in SYRINGE 50 ML IPL SCH ×2 (06:10→18:08)
[2017-11-22 06:11] LABS: PHOSPHORUS 5.4 mg/dl (2.5-4.9); TOTAL PROTEIN 6.8 gm/dl (6.4-8.2)
--- NOTE | 2017-11-22 07:07 | DIAGNOSTIC IMAGING REPORT ---
CHEST ONE VIEW PORTABLE CLINICAL HISTORY: Pleural effusion. Pleurx catheter. COMPARISON STUDY: 11/21/2017 FINDINGS: The cardiac and sternal contours remain stable. The right-sided PICC catheter remains unchanged in position. There is a right-sided pleural drain in place. There is blunting of the right lateral costophrenic angle. A persistent right pleural effusion is suspected. There are persistent right mid and lower lung zone airspace opacities. There is improved aeration left lung base.[ IMPRESSION: Persistent right pleural effusion and right lung airspace opacities. Improving aeration of the left lung base. Electronically signed by: Mitchell Baldwin M.D. 11/22/2017 7:06 AM Dictated Date/Time: 11/22/2017 7:05 AM
--- NOTE | 2017-11-22 07:15 | SURGERY PROGRESS NOTE ---
DATE: 11/22/2017 Jerry is complaining of pain. He said most of his pain is related to his right side of chest. The right chest area, he has a PleurX catheter. It has been therapeutically injected what appears to be an empyema. His chest x-ray yesterday seems to have significant reduction of the right pleural fluid. We started him on some clear liquids yesterday and talked with the apple thinner about advancing the possibility of some enteral feeds. He seems to be tolerating clear liquids well. His abdomen is distended but is nontender. The retention suture 1 was loose, so I removed. The abdominal incision had some granulation tissue that has been dressed regularly. The Nelson drainage which he has 3 of them, 2 on the right side and 1 on the left side, the uppermost one showed some minimal bilious consistency, but very little. The left upper quadrant site showed more of purulent drainage. The other one is very little output. At this point, I would continue to leave the drains in. I did shorten them because they were quite long. He most likely will need a CAT scan of the chest to follow up on pleural effusion or empyema. At that time, I discussed the intent was to proceeding with imaging is abdomen also. Of note, his white count is still markedly elevated at 22,000 with a left shift. The pleural fluid shows no organisms. SRIKANTHD
--- NOTE | 2017-11-22 07:29 | DIAGNOSTIC IMAGING REPORT ---
KUB CLINICAL HISTORY: follw up bowel distention obstruction COMPARISON STUDY: T 2017 FINDINGS: Improved post operative appearance. Surgical drains in the right upper quadrant, as well as in 2 locations of the pelvis. Air-filled small bowel as well as colon with no significant distention. No secondary signs of free air. IMPRESSION: Improved exam with a mild residual postprocedural ileus. The above report was generated using voice recognition software. It may contain grammatical, syntax or spelling errors. Electronically signed by: Jovi Tucker M.D. 11/22/2017 7:28 AM Dictated Date/Time: 11/22/2017 7:27 AM
[2017-11-22] MEDS: LINEZOLID / D5W 600 MG in PREMIXED IN D5W 300 ML IV SCH ×2 (07:44→21:13)
[2017-11-22] MEDS: NICOTINE 21 MG/24 HR TDSY TD SCH (07:45)
[2017-11-22] MEDS: HEPARIN SOD 5000 UNIT/0.5 ML CARP SQ SCH ×2 (07:46→21:14)
[2017-11-22] MEDS: BOOST VANILLA PO SCH ×3 (07:47→15:29)
[2017-11-22] MEDS ORDERED: FENTANYL 12 MCG/HR TDSY TD SCH (09:00)
[2017-11-22] MEDS: DOCUSATE SODIUM 100 MG CAP PO SCH ×2 (09:37→21:14)
--- NOTE | 2017-11-22 09:56 | Critical Care Progress Note ---
Critical Care Progress Note Date of Service Nov 22, 2017. Attending Dr. Flor Subjective Still draining well from the PleurX Requires frequent narcotic administration Poor appetite, but no adverse effects from diet Objective General: Young male, in mild distress Heent: NC/AT Lungs: Diminished breath sounds on the right, fairly clear. Right sided PleurX CVS:S1S2 regular Abd: Laparotomy wound with retention sutures. 3 drains Ext: Right arm PICC Skin: extensive tattoo work [employer] SPECIALIST: No deficit. 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 It seems to be working well so far. CT chest/abdomen/pelvis tomorrow to re-evaluate the empyema and the abdominal collections if any Empiric broad spectrum coverage. Started Zyvox, continue cefepime, added Flagyl for anaerobic coverage Because he had ESBL E Coli, changed the Cefepime to Primaxin and discontinued the Flagyl Pain control. Add fentanyl patch today Incentive spirometry Follow up culture of pleural fluid, sterile so far Advance diet as tolerated. Started on Boost yesterday, seems to like it Leave abdominal drains in for the time being Renal function steadily improving, urine output adequate DVT prophylaxis: SC heparin Critical care time spent with the patient, reviewing chart, discussing with sister, excluding procedures, greater than 25 minutes Consults & Procedures Consultants: Thoracic surgery - Dr Strong General surgery - Dr Cruz ID - Dr Jauregui Nephrology - Dr Lam Procedures: 11/20/17 - PleurX Data Medications: Current Inpatient Medications Medications (Trade) Dose Ordered Sig/Porsche Route Start Time Stop Time Status Last Admin Dose Admin Heparin Sodium (Porcine) (Heparin Sq 5000 Unit/0.5ml) 5,000 unit Q12 SQ 11/20/17 21:00 12/20/17 20:59 11/22/17 07:46 5,000 UNIT Alteplase, Recombinant 10 mg/ Syringe 60 ml @ 0 mls/hr Q12@0600,1800 IPL 11/20/17 18:00 11/23/17 06:01 11/22/17 06:10 1 MLS/HR Nicotine (Nicoderm Cq 21MG Patch) 1 patch QAM TD 11/21/17 09:00 12/21/17 08:59 11/22/17 07:45 1 PATCH Miscellaneous (Remove Nicoderm Patch) 1 ea HS N/A 11/20/17 21:00 12/20/17 20:59 11/21/17 21:23 1 EA Linezolid 600 mg/ Prmx 300 ml @ 300 mls/hr Q12@0800,2000 IV 11/20/17 20:00 11/27/17 19:59 11/22/17 07:44 300 MLS/HR Acetaminophen 1000 mg/Empty Bag 100 ml @ 400 mls/hr Q8H IV 11/20/17 18:00 12/20/17 17:59 11/22/17 09:41 400 MLS/HR Pantoprazole Sodium 40 mg/ Syringe 10 ml @ 5 mls/min DAILY@11 IV 11/21/17 11:00 12/21/17 10:59 11/21/17 10:58 5 MLS/MIN Ondansetron HCl (Zofran Inj) 4 mg Q6H PRN IV 11/20/17 17:15 12/20/17 17:14 11/21/17 22:31 4 MG Dornase Judd 5 ml/ Syringe 30 ml @ 0 mls/hr Q12@0900,2100 IPL 11/20/17 22:00 11/23/17 09:01 11/21/17 21:23 1 MLS/HR Morphine Sulfate (MoRPHine SULFATE INJ) 2 mg Q2H PRN IV 11/21/17 08:00 12/05/17 07:59 11/22/17 08:12 2 MG Parenteral Electrolyte Solution 1,000 ml @ 100 mls/hr Q10H IV 11/21/17 09:15 12/21/17 09:14 11/21/17 21:27 100 MLS/HR Imipenem/ Cilastatin Sodium 500 mg/Dextrose 120 ml @ 100 mls/hr Q8H IV 11/21/17 12:00 11/28/17 11:59 11/22/17 04:55 100 MLS/HR Enteral Nutritional Formula (Boost) 1 can AC PO 11/22/17 06:45 12/22/17 06:44 11/22/17 07:47 1 CAN Heparin Sodium (Porcine) (Heparin 10 Unit/ ml 5 ml Flush) 5 ml PRN PRN FLUSH 11/22/17 04:45 12/22/17 04:44 Fentanyl (Duragesic Patch) 12 mcg Q72H TD 11/22/17 09:00 12/06/17 08:59 11/22/17 09:39 12 MCG Miscellaneous (Fentanyl Patch Remove & Waste) 1 ea Q72H N/A 11/24/17 08:59 12/24/17 08:58 Miscellaneous Information (Check Fentanyl Patch Placement) 1 ea QS N/A 11/22/17 16:00 12/22/17 15:59 Docusate Sodium (coLACE CAP) 100 mg BID PO 11/22/17 09:00 12/22/17 08:59 11/22/17 09:37 100 MG Vital Signs: Date Time Temp Pulse Resp B/P (MAP) Pulse Ox O2 Delivery O2 Flow Rate FiO2 11/22/17 09:01 102 22 90/77 (81) 95 Nasal Cannula 3.0 11/22/17 09:00 101 22 95 11/22/17 08:15 36.7 107 24 129/80 (96) 95 Nasal Cannula 3.0 11/22/17 08:00 106 24 11/22/17 07:30 95 Nasal Cannula 3.0 11/22/17 07:00 103 29 11/22/17 04:00 Nasal Cannula 3.0 11/22/17 02:00 105 110/68 (82) 96 Nasal Cannula 3.0 11/22/17 01:00 110 132/78 (96) 93 Nasal Cannula 3.0 11/22/17 00:02 36.9 117 141/32 (68) 93 Nasal Cannula 3.0 11/21/17 23:59 Nasal Cannula 3.0 11/21/17 23:00 100 117/79 (92) 98 Nasal Cannula 3.0 11/21/17 22:00 101 125/85 (98) 96 Nasal Cannula 3.0 11/21/17 21:00 99 140/79 (99) 98 Nasal Cannula 3.0 11/21/17 20:00 36.7 101 129/84 (99) 97 Nasal Cannula 3.0 11/21/17 20:00 Nasal Cannula 3.0 11/21/17 19:00 104 125/69 (87) 95 Nasal Cannula 3.0 11/21/17 18:00 103 141/87 (105) 95 11/21/17 17:00 100 127/79 (95) 96 11/21/17 16:15 97 Nasal Cannula 3.0 11/21/17 16:00 36.3 97 18 130/84 (99) 98 Nasal Cannula 3.0 11/21/17 15:01 95 17 138/86 (103) 99 11/21/17 15:00 94 20 100 11/21/17 14:00 90 18 133/90 (104) 98 Nasal Cannula 3.0 11/21/17 13:00 90 118/75 (89) 97 11/21/17 12:30 90 20 96 Nasal Cannula 3.0 11/21/17 12:00 99 Nasal Cannula 3.0 11/21/17 12:00 93 22 131/88 (102) 96 11/21/17 11:30 102 31 95 Nasal Cannula 3.0 11/21/17 11:11 36.7 102 121/81 (94) 11/21/17 11:00 96 95 Nasal Cannula 3.0 11/21/17 10:30 102 95 11/21/17 10:00 102 124/75 (91) 98 Nasal Cannula 3.0 Laboratory Results: Last 24 Hours Test 11/21/17 11:05 11/21/17 11:45 11/21/17 18:02 11/22/17 00:55 Bedside Glucose 150 mg/dl 95 mg/dl 111 mg/dl Urine Color YELLOW Urine Appearance CLEAR Urine pH 5.0 Urine Specific Burnett 1.013 Urine Protein NEG Urine Glucose (UA) NEG Urine Ketones TRACE Urine Occult Blood 1+ Urine Nitrite NEG Urine Bilirubin NEG Urine Urobilinogen NEG Urine Leukocyte Esterase NEG Urine WBC (Auto) 1-5 /hpf Urine RBC (Auto) 5-10 /hpf Urine Hyaline Casts (Auto) 1-5 /lpf Urine Epithelial Cells (Auto) 5-10 /lpf Urine Bacteria (Auto) NEG Urine Random Creatinine 50.1 mg/dl Urine Random Total Protein 49.5 mg/dl Urine Protein/Creatinine Ratio 1.0 Test 11/22/17 04:57 White Blood Count 22.53 K/uL Red Blood Count 2.78 M/uL Hemoglobin 8.4 g/dL Hematocrit 26.3 % Mean Corpuscular Volume 94.6 fL Mean Corpuscular Hemoglobin 30.2 pg Mean Corpuscular Hemoglobin Concent 31.9 g/dl Platelet Count 765 K/uL Mean Platelet Volume 8.6 fL Neutrophils (%) (Auto) 80.4 % Lymphocytes (%) (Auto) 11.1 % Monocytes (%) (Auto) 7.0 % Eosinophils (%) (Auto) 0.5 % Basophils (%) (Auto) 0.2 % Neutrophils # (Auto) 18.13 K/uL Lymphocytes # (Auto) 2.49 K/uL Monocytes # (Auto) 1.58 K/uL Eosinophils # (Auto) 0.12 K/uL Basophils # (Auto) 0.04 K/uL RDW Standard Deviation 52.0 fL RDW Coefficient of Variation 15.2 % Immature Granulocyte % (Auto) 0.8 % Immature Granulocyte # (Auto) 0.17 K/uL Red Blood Cell Morphology Unremarkable Sodium Level 135 mmol/L Potassium Level 4.2 mmol/L Chloride Level 104 mmol/L Carbon Dioxide Level 23 mmol/L Anion Gap 8.0 mmol/L Blood Urea Nitrogen 18 mg/dl Creatinine 1.84 mg/dl Est Creatinine Clear Calc Drug Dose 51.4 ml/min Estimated GFR () 53.1 Estimated GFR (Non- 45.8 BUN/Creatinine Ratio 9.9 Random Glucose 107 mg/dl Calcium Level 8.3 mg/dl Phosphorus Level 5.4 mg/dl Magnesium Level 1.9 mg/dl Total Bilirubin 0.7 mg/dl Direct Bilirubin 0.4 mg/dl Aspartate Amino Transf (AST/SGOT) 12 U/L Alanine Aminotransferase (ALT/SGPT) 22 U/L Alkaline Phosphatase 315 U/L Total Protein 6.8 gm/dl Albumin 1.4 gm/dl Globulin 5.4 gm/dl Albumin/Globulin Ratio 0.3 Lipase 91 U/L
[2017-11-22] MEDS: DORNASE ALFA 5 ML in SYRINGE 25 ML IPL SCH ×2 (10:03→21:13)
--- NOTE | 2017-11-22 10:38 | Nephrology Progress Note ---
Nephrology Progress Note Date of Service Nov 22, 2017. Chief Complaint F/U for acute kidney injury. Subjective Jerry was seen and examined in his room this morning. His complaining of some pain in his abdomen as well as in the right-side of the chest. Denies shortness of breath. Started orally and diet advanced seems to be tolerating well. Renal function has been slowly improving however Remained tachycardic with relatively soft blood pressure, hemoglobin dropped and white cell count is increasing. Review of Systems A complete review of systems was performed. Pertinent positives are noted above. All other systems are negative. Vital Signs Last 8 Hrs Date Time Temp Pulse Resp B/P (MAP) Pulse Ox O2 Delivery O2 Flow Rate FiO2 11/22/17 04:00 Nasal Cannula 3.0 11/22/17 02:00 105 110/68 (82) 96 Nasal Cannula 3.0 11/22/17 01:00 110 132/78 (96) 93 Nasal Cannula 3.0 Last Recorded Weight Weight (Kilograms): 75.800 Physical Exam GENERAL: young male, AAA x 3, ill appearing, In cruk-sy-dnexdtls distress NECK: Supple, no JVD. RESPIRATORY: Normal breathing efforts, rt sided PleurX cath in place, clear to auscultation. CARDIOVASCULAR: S1, S2 normal, rate rhythm regular. EXTREMITY: No lower extremity edema NEURO: speech fluent. PSYCHIATRY: Normal mood and judgment Family History No known family history of chronic kidney disease or end-stage renal disease. Laboratory Results Past 24 Hours 11/21/17 09:26 11/22/17 04:57 Red Blood Count 2.78, Mean Corpuscular Volume 94.6, Mean Corpuscular Hemoglobin 30.2, Mean Corpuscular Hemoglobin Concent 31.9, Mean Platelet Volume 8.6, Neutrophils (%) (Auto) 80.4, Lymphocytes (%) (Auto) 11.1, Monocytes (%) (Auto) 7.0, Eosinophils (%) (Auto) 0.5, Basophils (%) (Auto) 0.2, Neutrophils # (Auto) 18.13, Lymphocytes # (Auto) 2.49, Monocytes # (Auto) 1.58, Eosinophils # (Auto) 0.12, Basophils # (Auto) 0.04 11/22/17 04:57 Test 11/21/17 11:05 3/6/18 11:45 11/21/17 18:02 11/22/17 00:55 Bedside Glucose 150 mg/dl (70-99) 95 mg/dl (70-99) 111 mg/dl (70-99) Urine Color YELLOW Urine Appearance CLEAR (CLEAR) Urine pH 5.0 (4.5-7.5) Urine Specific [place] 1.013 (1.000-1.030) Urine Protein NEG (NEG) Urine Glucose (UA) NEG (NEG) Urine Ketones TRACE (NEG) Urine Occult Blood 1+ (NEG) Urine Nitrite NEG (NEG) Urine Bilirubin NEG (NEG) Urine Urobilinogen NEG (NEG) Urine Leukocyte Esterase NEG (NEG) Urine WBC (Auto) 1-5 /hpf (0-5) Urine RBC (Auto) 5-10 /hpf (0-4) Urine Hyaline Casts (Auto) 1-5 /lpf (0-5) Urine Epithelial Cells (Auto) 5-10 /lpf (0-5) Urine Bacteria (Auto) NEG (NEG) Urine Random Creatinine 50.1 mg/dl Urine Random Total Protein 49.5 mg/dl (0-11.9) Urine Protein/Creatinine Ratio 1.0 (0-0.2) Test 11/22/17 04:57 White Blood Count 22.53 K/uL (4.8-10.8) Red Blood Count 2.78 M/uL (4.7-6.1) Hemoglobin 8.4 g/dL (14.0-18.0) Hematocrit 26.3 % (42-52) Mean Corpuscular Volume 94.6 fL (80-100) Mean Corpuscular Hemoglobin 30.2 pg (25-34) Mean Corpuscular Hemoglobin Concent 31.9 g/dl (32-36) Platelet Count 765 K/uL (130-400) Mean Platelet Volume 8.6 fL (7.4-10.4) Neutrophils (%) (Auto) 80.4 % Lymphocytes (%) (Auto) 11.1 % Monocytes (%) (Auto) 7.0 % Eosinophils (%) (Auto) 0.5 % Basophils (%) (Auto) 0.2 % Neutrophils # (Auto) 18.13 K/uL (1.4-6.5) Lymphocytes # (Auto) 2.49 K/uL (1.2-3.4) Monocytes # (Auto) 1.58 K/uL (0.11-0.59) Eosinophils # (Auto) 0.12 K/uL (0-0.5) Basophils # (Auto) 0.04 K/uL (0-0.2) RDW Standard Deviation 52.0 fL (36.4-46.3) RDW Coefficient of Variation 15.2 % (11.5-14.5) Immature Granulocyte % (Auto) 0.8 % Immature Granulocyte # (Auto) 0.17 K/uL (0.00-0.02) Red Blood Cell Morphology Unremarkable Anion Gap 8.0 mmol/L (3-11) Est Creatinine Clear Calc Drug Dose 51.4 ml/min Estimated GFR () 53.1 Estimated GFR (Non- 45.8 BUN/Creatinine Ratio 9.9 (10-20) Calcium Level 8.3 mg/dl (8.5-10.1) Phosphorus Level 5.4 mg/dl (2.5-4.9) Magnesium Level 1.9 mg/dl (1.8-2.4) Total Bilirubin 0.7 mg/dl (0.2-1) Direct Bilirubin 0.4 mg/dl (0-0.2) Aspartate Amino Transf (AST/SGOT) 12 U/L (15-37) Alanine Aminotransferase (ALT/SGPT) 22 U/L (12-78) Alkaline Phosphatase 315 U/L (45-117) Total Protein 6.8 gm/dl (6.4-8.2) Albumin 1.4 gm/dl (3.4-5.0) Globulin 5.4 gm/dl (2.5-4.0) Albumin/Globulin Ratio 0.3 (0.9-2) Lipase 91 U/L (73-393) Allergies Coded Allergies: No Known Allergies (Unverified , 02/13/08) Medications Current Inpatient Medications Medications (Trade) Dose Ordered Sig/Porsche Route Start Time Stop Time Status Last Admin Dose Admin Heparin Sodium (Porcine) (Heparin Sq 5000 Unit/0.5ml) 5,000 unit Q12 SQ 11/20/17 21:00 12/20/17 20:59 11/22/17 07:46 5,000 UNIT Alteplase, Recombinant 10 mg/ Syringe 60 ml @ 0 mls/hr Q12@0600,1800 IPL 11/20/17 18:00 11/23/17 06:01 11/22/17 06:10 1 MLS/HR Nicotine (Nicoderm Cq 21MG Patch) 1 patch QAM TD 11/21/17 09:00 12/21/17 08:59 11/22/17 07:45 1 PATCH Miscellaneous (Remove Nicoderm Patch) 1 ea HS N/A 11/20/17 21:00 12/20/17 20:59 11/21/17 21:23 1 EA Linezolid 600 mg/ Prmx 300 ml @ 300 mls/hr Q12@0800,2000 IV 11/20/17 20:00 11/27/17 19:59 11/22/17 07:44 300 MLS/HR Acetaminophen 1000 mg/Empty Bag 100 ml @ 400 mls/hr Q8H IV 11/20/17 18:00 12/20/17 17:59 11/22/17 02:18 400 MLS/HR Pantoprazole Sodium 40 mg/ Syringe 10 ml @ 5 mls/min DAILY@11 IV 11/21/17 11:00 12/21/17 10:59 11/21/17 10:58 5 MLS/MIN Ondansetron HCl (Zofran Inj) 4 mg Q6H PRN IV 11/20/17 17:15 12/20/17 17:14 11/21/17 22:31 4 MG Dornase Judd 5 ml/ Syringe 30 ml @ 0 mls/hr Q12@0900,2100 IPL 11/20/17 22:00 11/23/17 09:01 11/21/17 21:23 1 MLS/HR Morphine Sulfate (MoRPHine SULFATE INJ) 2 mg Q2H PRN IV 11/21/17 08:00 12/05/17 07:59 11/22/17 08:12 2 MG Parenteral Electrolyte Solution 1,000 ml @ 100 mls/hr Q10H IV 11/21/17 09:15 12/21/17 09:14 11/21/17 21:27 100 MLS/HR Imipenem/ Cilastatin Sodium 500 mg/Dextrose 120 ml @ 100 mls/hr Q8H IV 11/21/17 12:00 11/28/17 11:59 11/22/17 04:55 100 MLS/HR Enteral Nutritional Formula (Boost) 1 can AC PO 11/22/17 06:45 12/22/17 06:44 11/22/17 07:47 1 CAN Heparin Sodium (Porcine) (Heparin 10 Unit/ ml 5 ml Flush) 5 ml PRN PRN FLUSH 11/22/17 04:45 12/22/17 04:44 Impression (1) Acute kidney injury (2) Metabolic acidosis (3) Anemia (4) Empyema 37-year-old gentlemen with acute kidney injury in the setting of recent multiple hospital admission and surgery for abdominal abscesses, reversal of Pepe procedure and then recent empyema with drainage yesterday. No known history of chronic kidney disease. Currently remain non-oliguric. Blood pressure stable. No renal ultrasound or urinalysis available. No history of NSAID use. On admission creatinine was 2.3 which slightly improved to 1.9 this morning. Acute kidney injury most likely hemodynamically mediated in the setting of recent multiple hospital admissions surgery. Renal function seems to be already improving. Can't exclude other possibilities such as any intrinsic renal disease however seems unlikely as renal function started to improve. Recommendations --renal function slowly improving from recent acute kidney injury, urinalysis with no proteinuria hematuria. --continue to monitor renal function daily renal panel --hemodynamics support and avoid hypotension --avoid nephrotoxic medications Will follow
[2017-11-22] MEDS: PANTOprazole INJ 40 MG in SYRINGE 0 ML IV SCH (11:26)
--- NOTE | 2017-11-22 13:29 | Infectious Disease Progress Nt ---
Progress Note Date of Service Nov 22, 2017. Subjective Pt evaluation today including: conversation w/ patient, physical exam, chart review, lab review, review of studies, conversation w/ corporate travel consultant, review of inpatient medication list Patient continues to complain of abdominal pain and pain in the right side of his chest. Significant amount of drainage from pleural catheter. Remains afebrile and hemodynamically stable. Cultures from pleural drainage negative so far. Appears to be tolerating antibiotics without apparent difficulty. All Other Systems: Reviewed and Negative Medications Current Inpatient Medications Medications (Trade) Dose Ordered Sig/Porsche Route Start Time Stop Time Status Last Admin Dose Admin Heparin Sodium (Porcine) (Heparin Sq 5000 Unit/0.5ml) 5,000 unit Q12 SQ 11/20/17 21:00 12/20/17 20:59 11/22/17 07:46 5,000 UNIT Alteplase, Recombinant 10 mg/ Syringe 60 ml @ 0 mls/hr Q12@0600,1800 IPL 11/20/17 18:00 11/23/17 06:01 11/22/17 06:10 1 MLS/HR Nicotine (Nicoderm Cq 21MG Patch) 1 patch QAM TD 11/21/17 09:00 12/21/17 08:59 11/22/17 07:45 1 PATCH Miscellaneous (Remove Nicoderm Patch) 1 ea HS N/A 11/20/17 21:00 12/20/17 20:59 11/21/17 21:23 1 EA Linezolid 600 mg/ Prmx 300 ml @ 300 mls/hr Q12@0800,2000 IV 11/20/17 20:00 11/27/17 19:59 11/22/17 07:44 300 MLS/HR Acetaminophen 1000 mg/Empty Bag 100 ml @ 400 mls/hr Q8H IV 11/20/17 18:00 12/20/17 17:59 11/22/17 09:41 400 MLS/HR Pantoprazole Sodium 40 mg/ Syringe 10 ml @ 5 mls/min DAILY@11 IV 11/21/17 11:00 12/21/17 10:59 11/22/17 11:26 5 MLS/MIN Ondansetron HCl (Zofran Inj) 4 mg Q6H PRN IV 11/20/17 17:15 12/20/17 17:14 11/21/17 22:31 4 MG Dornase Judd 5 ml/ Syringe 30 ml @ 0 mls/hr Q12@0900,2100 IPL 11/20/17 22:00 11/23/17 09:01 11/22/17 10:03 30 MLS/HR Morphine Sulfate (MoRPHine SULFATE INJ) 2 mg Q2H PRN IV 11/21/17 08:00 12/05/17 07:59 11/22/17 11:31 2 MG Parenteral Electrolyte Solution 1,000 ml @ 100 mls/hr Q10H IV 11/21/17 09:15 12/21/17 09:14 11/21/17 21:27 100 MLS/HR Imipenem/ Cilastatin Sodium 500 mg/Dextrose 120 ml @ 100 mls/hr Q8H IV 11/21/17 12:00 11/28/17 11:59 11/22/17 11:28 100 MLS/HR Enteral Nutritional Formula (Boost) 1 can AC PO 11/22/17 06:45 12/22/17 06:44 11/22/17 11:28 1 CAN Heparin Sodium (Porcine) (Heparin 10 Unit/ ml 5 ml Flush) 5 ml PRN PRN FLUSH 11/22/17 04:45 12/22/17 04:44 Fentanyl (Duragesic Patch) 12 mcg Q72H TD 11/22/17 09:00 12/06/17 08:59 11/22/17 09:39 12 MCG Miscellaneous (Fentanyl Patch Remove & Waste) 1 ea Q72H N/A 11/24/17 08:59 12/24/17 08:58 Miscellaneous Information (Check Fentanyl Patch Placement) 1 ea QS N/A 11/22/17 16:00 12/22/17 15:59 Docusate Sodium (coLACE CAP) 100 mg BID PO 11/22/17 09:00 12/22/17 08:59 11/22/17 09:37 100 MG Objective Vital Signs Date Time Temp Pulse Resp B/P (MAP) Pulse Ox O2 Delivery O2 Flow Rate FiO2 11/22/17 11:30 96 Nasal Cannula 3.0 11/22/17 09:01 102 22 90/77 (81) 95 Nasal Cannula 3.0 11/22/17 09:00 101 22 95 11/22/17 08:15 36.7 107 24 129/80 (96) 95 Nasal Cannula 3.0 11/22/17 08:00 Nasal Cannula 11/22/17 08:00 106 24 11/22/17 07:30 95 Nasal Cannula 3.0 11/22/17 07:00 103 29 11/22/17 04:00 Nasal Cannula 3.0 11/22/17 02:00 105 110/68 (82) 96 Nasal Cannula 3.0 11/22/17 01:00 110 132/78 (96) 93 Nasal Cannula 3.0 11/22/17 00:02 36.9 117 141/32 (68) 93 Nasal Cannula 3.0 11/21/17 23:59 Nasal Cannula 3.0 11/21/17 23:00 100 117/79 (92) 98 Nasal Cannula 3.0 11/21/17 22:00 101 125/85 (98) 96 Nasal Cannula 3.0 11/21/17 21:00 99 140/79 (99) 98 Nasal Cannula 3.0 11/21/17 20:00 36.7 101 129/84 (99) 97 Nasal Cannula 3.0 11/21/17 20:00 Nasal Cannula 3.0 11/21/17 19:00 104 125/69 (87) 95 Nasal Cannula 3.0 11/21/17 18:00 103 141/87 (105) 95 11/21/17 17:00 100 127/79 (95) 96 11/21/17 16:15 97 Nasal Cannula 3.0 11/21/17 16:00 36.3 97 18 130/84 (99) 98 Nasal Cannula 3.0 11/21/17 15:01 95 17 138/86 (103) 99 11/21/17 15:00 94 20 100 11/21/17 14:00 90 18 133/90 (104) 98 Nasal Cannula 3.0 Physical Exam General Appearance: no apparent distress, + pertinent finding (Chronically ill- appearing) Eyes: normal inspection, EOMI, sclerae normal ENT: normal ENT inspection, hearing grossly normal, pharynx normal Neck: supple, no adenopathy, thyroid normal, trachea midline Respiratory/Chest: chest non-tender, no respiratory distress, no accessory muscle use, + decreased breath sounds (Right side), + pertinent finding (Right pleural catheter) Cardiovascular: regular rate, rhythm, no gallop, no murmur Abdomen: normal bowel sounds, soft, no organomegaly, + tenderness, + pertinent finding (Retention sutures and drains in place) Extremities: non-tender, no calf tenderness, normal capillary refill Neurologic/Psychiatric: alert, oriented x 3 Skin: normal color, warm/dry, no rash Lymphatic: no adenopathy Laboratory Results RUN DATE: 11/22/17 [facility] LAB PAGE 1 RUN TIME: 0929 Specimen Inquiry PATIENT: KRYSTALMITCHEL LOC: [facility] U # : [id number] AGE/SX: 37/M ROOM: E101 REG : 11/20/[address]: Dav Strong MD : 1980 BED: 1 DIS : STATUS: ADM IN TLOC: SPEC #: [id number] ELLYN: 11/20/17-1649 STATUS: RES REQ #: [id number] RECD: 11/20/17-[address]: James Castañeda PA SOURCE: PLEURAL FL ENTR: 11/20/17-[address]: Clary Doctor, Assigned SPDESC: Josselyn Melara DO ORDERED: AER/BENI CULTSMR COMMENTS: Specimen Comment Tube #2 Has Specimen Been Obtained/Collected? Y Procedure Result Verified Site GRAM STAIN Final 11/21/17 RESULT MANY POLYS NO ORGANISMS SEEN Phoned results to ADAM LINN on 11/20/17 at 1817 by Virginia Elder. Results were verbalized back to NAYANA. OR AER/BENI CULT Preliminary 11/22/17 NO GROWTH TO DATE. Last 24 Hours Test 11/21/17 18:02 11/22/17 00:55 11/22/17 04:57 Bedside Glucose 95 mg/dl 111 mg/dl White Blood Count 22.53 K/uL Red Blood Count 2.78 M/uL Hemoglobin 8.4 g/dL Hematocrit 26.3 % Mean Corpuscular Volume 94.6 fL Mean Corpuscular Hemoglobin 30.2 pg Mean Corpuscular Hemoglobin Concent 31.9 g/dl Platelet Count 765 K/uL Mean Platelet Volume 8.6 fL Neutrophils (%) (Auto) 80.4 % Lymphocytes (%) (Auto) 11.1 % Monocytes (%) (Auto) 7.0 % Eosinophils (%) (Auto) 0.5 % Basophils (%) (Auto) 0.2 % Neutrophils # (Auto) 18.13 K/uL Lymphocytes # (Auto) 2.49 K/uL Monocytes # (Auto) 1.58 K/uL Eosinophils # (Auto) 0.12 K/uL Basophils # (Auto) 0.04 K/uL RDW Standard Deviation 52.0 fL RDW Coefficient of Variation 15.2 % Immature Granulocyte % (Auto) 0.8 % Immature Granulocyte # (Auto) 0.17 K/uL Red Blood Cell Morphology Unremarkable Sodium Level 135 mmol/L Potassium Level 4.2 mmol/L Chloride Level 104 mmol/L Carbon Dioxide Level 23 mmol/L Anion Gap 8.0 mmol/L Blood Urea Nitrogen 18 mg/dl Creatinine 1.84 mg/dl Est Creatinine Clear Calc Drug Dose 51.4 ml/min Estimated GFR () 53.1 Estimated GFR (Non- 45.8 BUN/Creatinine Ratio 9.9 Random Glucose 107 mg/dl Calcium Level 8.3 mg/dl Phosphorus Level 5.4 mg/dl Magnesium Level 1.9 mg/dl Total Bilirubin 0.7 mg/dl Direct Bilirubin 0.4 mg/dl Aspartate Amino Transf (AST/SGOT) 12 U/L Alanine Aminotransferase (ALT/SGPT) 22 U/L Alkaline Phosphatase 315 U/L Total Protein 6.8 gm/dl Albumin 1.4 gm/dl Globulin 5.4 gm/dl Albumin/Globulin Ratio 0.3 Lipase 91 U/L Patient Name: MITCHEL RICE Unit Number: [id number] Dictated: 11/22/17704 Transcribed: 11/22/17704 ARG Printed Date/Time: [~ rep prt dt]/[~ rep prt tm] [~ rep ct labl] - [~ rep ct ivnm] [facility] [place] [address] Dictated: 11/22/17704 Transcribed: 11/22/17704 ARG Printed Date/Time: [~ rep prt dt]/[~ rep prt tm] [~ rep ct labl] - [~ rep ct ivnm] [~ rep ct add3]] CHEST ONE VIEW PORTABLE CLINICAL HISTORY: Pleural effusion. Pleurx catheter. COMPARISON STUDY: 11/21/2017 FINDINGS: The cardiac and sternal contours remain stable. The right-sided PICC catheter remains unchanged in position. There is a right-sided pleural drain in place. There is blunting of the right lateral costophrenic angle. A persistent right pleural effusion is suspected. There are persistent right mid and lower lung zone airspace opacities. There is improved aeration left lung base.[ IMPRESSION: Persistent right pleural effusion and right lung airspace opacities. Improving aeration of the left lung base. Electronically signed by: Mitchell Baldwin M.D. 11/22/2017 7:06 AM Dictated Date/Time: 11/22/2017 7:05 AM The status of this report is Signed. Draft = Not yet reviewed or approved by Radiologist. Signed = Reviewed and approved by Radiologist. <AttendingPhy>Dav Strong MD</AttendingPhy> <FamilyPhy>No Doctor, Assigned</FamilyPhy> <PrimaryPhy>No Doctor, Assigned</PrimaryPhy> <UnitNumber> [id number]</UnitNumber> <VisitNumber>[id number]</VisitNumber> <PatientName> MITCHEL RICE</PatientName> <DateOfBirth>1980</DateOfBirth> <Location> [facility]</Location> <ServiceDate></ServiceDate> <MNE>ESINDI</MNE> <OrderingPhy> James Castañeda</OrderingPhy> <OrderingPhyMNE>f rep ord dr reilly</ OrderingPhyMNE> <DictatingPhyMNE>f rep dict dr reilly</DictatingPhyMNE> <CCListMNE> f rep ct tommie</CCListMNE> <AdmittingPhyMNE>f pt admit dr reilly</AdmittingPhyMNE> < AttendingPhyMNE>f pt attend dr reilly</AttendingPhyMNE> <ConsultingPhyMNE>f pt consult dr reilly</ConsultingPhyMNE> <FamilyPhyMNE>f pt fam dr reilly</FamilyPhyMNE> <OtherPhyMNE>f pt other dr reilly</OtherPhyMNE> < PrimaryPhyMNE>f pt prim care dr reilly</PrimaryPhyMNE> <ReferringPhyMNE>f pt referring dr reilly</ReferringPhyMNE> Assessment and Plan Right empyema following multiple surgeries for diverticulitis/abscess, now s/p Pleur-X drainage. Linezolid and imipenem appropriate pending further cultures given prolonged hospitalization. For follow-up CT of abdomen and chest tomorrow. Will follow.
[2017-11-22] MEDS: NORMOSOL R 1,000 ML IV SCH (13:31)
[2017-11-22] MEDS: CHECK FENTANYL PATCH PLACEMENT SCH (15:27)
[2017-11-23] VITALS (17 sets, daily range): BP systolic 105–133; BP diastolic 63–92; PULSE 85–103; TEMP 36.4–36.6; O2SAT 95–100
[2017-11-23] MEDS: CHECK FENTANYL PATCH PLACEMENT SCH ×3 (00:03→16:08)
[2017-11-23] MEDS: LORAZEPAM 0.5 MG TAB PO STA ×2 (00:35→00:50)
[2017-11-23] MEDS ORDERED: LORAZEPAM 0.5 MG TAB PO STA (00:59)
[2017-11-23] MEDS: ACETAMINOPHEN IV 1,000 MG in EMPTY BAG 0 ML IV SCH ×3 (01:51→18:07)
[2017-11-23] MEDS: IMIPENEM-CILASTATIN 500 MG in DEXTROSE 5% 100ML 100 ML IV SCH ×3 (03:50→19:24)
[2017-11-23] MEDS: MoRPHine SULFATE 2 MG/ML CARP IV PRN ×7 (03:50→23:41)
[2017-11-23 05:28] LABS: HEMATOCRIT 25.9 % (42-52); HEMOGLOBIN 8.2 g/dL (14.0-18.0); MEAN CELL VOLUME 93.8 fL (80-100); MEAN CORPUSCULAR HEMOGLOBIN 29.7 pg (25-34); MEAN CORPUSCULAR HGB CONC 31.7 g/dl (32-36); MEAN PLATELET VOLUME 8.5 fL (7.4-10.4); PLATELET COUNT 725 K/uL (130-400); RED CELL DISTRIBUTION WIDTH CV 15.1 % (11.5-14.5); WHITE BLOOD COUNT 17.88 K/uL (4.8-10.8)
[2017-11-23] MEDS ORDERED: NURSING VERBAL MED ORDER ONE (05:30)
[2017-11-23 05:50] LABS: CALCIUM 7.9 mg/dl (8.5-10.1); CREATININE 1.48 mg/dl (0.60-1.40); POTASSIUM 3.8 mmol/L (3.5-5.1)
[2017-11-23 06:04] LABS: PHOSPHORUS 4.1 mg/dl (2.5-4.9)
[2017-11-23] MEDS: ALTEPLASE, RECOMBINANT 10 MG in SYRINGE 50 ML IPL SCH ×2 (06:11→18:08)
--- NOTE | 2017-11-23 06:54 | DIAGNOSTIC IMAGING REPORT ---
CHEST ONE VIEW PORTABLE CLINICAL HISTORY: pleurx PLEURAL EFFUSION COMPARISON STUDY: 11/22/2017 FINDINGS: The cardiac and mediastinal contours remain stable. The right-sided PICC catheter remains unchanged in position. The right-sided Pleurx catheter remains unchanged in position. There are persistent hazy opacities within the right middle lower lung zone. There is a suspected small right pleural effusion. Minor left basilar opacities remain similar, and likely atelectatic. IMPRESSION: Stable findings Electronically signed by: Mitchell Baldwin M.D. 11/23/2017 6:53 AM Dictated Date/Time: 11/23/2017 6:51 AM
[2017-11-23] MEDS ORDERED: MoRPHine SULFATE 2 MG/ML CARP IV SCH (07:00)
[2017-11-23] MEDS: BOOST VANILLA PO SCH ×3 (07:39→16:01)
--- NOTE | 2017-11-23 08:22 | DIAGNOSTIC IMAGING REPORT ---
CT SCAN OF THE ABDOMEN AND PELVIS WITHOUT CONTRAST CLINICAL HISTORY: empyema; hx. of perforated diverticulitis COMPARISON STUDY: Outside CT scan dated November 19, 2017 TECHNIQUE: CT scan of the abdomen and pelvis was performed from the lung bases to the proximal femurs. Images are reviewed in the axial, sagittal, and coronal planes. IV contrast was not administered for this examination. A dose lowering technique was utilized adhering to the principles of ALARA. CT DOSE: FINDINGS: Lower chest: There is a right-sided chest tube present. There are small bilateral pleural effusions. There is dense right lower lobe pulmonary consolidation with air bronchograms. Airspace opacities within the lingula or right middle lobe and left lower lobe, are likely atelectatic. Liver: There is an equivocal 2 cm subcapsular collection within the right hepatic lobe Gallbladder: Distended. No calculi visualized. Spleen: The spleen is mildly enlarged measuring 13.4 cm Pancreas: Unremarkable. Adrenal glands: Unremarkable. Kidneys: The unenhanced kidneys are normal in size without hydronephrosis. There is no contour deforming renal mass lesion. No renal calculi are identified. Bowel: There are no transition zones to indicate bowel obstruction. The appendix is not visualized. There are postsurgical changes present within the sigmoid. There is an equivocal small perisigmoid abscess which is traversed by a left lower quadrant drainage catheter Peritoneum: There are bilateral lower quadrant drainage catheters. There is a right upper quadrant perihepatic drainage catheter. There is no free intraperitoneal air. There is no significant ascites. The left lower quadrant catheter traverses an equivocal small abscess. Evaluation is limited due to the lack of intravenous and orally administered contrast. There are postsurgical changes present within the anterior abdominal wall. Vasculature: The abdominal aorta is normal in course and caliber. Adenopathy: None. Pelvic viscera: There is a Grimm catheter. Skeletal structures: No destructive osseous lesions are seen. IMPRESSION: 1. The examination is limited due to the lack of intravenous and oral contrast 2. Small bilateral pleural effusions 3. Right-sided chest tube 4. Dense consolidation of the right lower lobe with air bronchograms 5. Equivocal 2 cm subcapsular collection within the right hepatic lobe 6. Distended gallbladder 7. Mild splenomegaly 8. No evidence of bowel obstruction. No evidence of free air 9. Right upper quadrant and bilateral lower quadrant drainage catheters 10. The left lower quadrant drainage catheter traverses an equivocal small abscess Electronically signed by: Mitchell Baldwin M.D. 11/23/2017 8:21 AM Dictated Date/Time: 11/23/2017 8:07 AM
--- NOTE | 2017-11-23 08:26 | DIAGNOSTIC IMAGING REPORT ---
(CHEST) THORAX WITHOUT CT DOSE: 636.43 mGy.cm HISTORY: empyema TECHNIQUE: Multiaxial CT images of the chest were performed without contrast. A dose lowering technique was utilized adhering to the principles of ALARA. COMPARISON: Abdomen and pelvis CT outside hospital 11/19/2017. FINDINGS: The central airways are patent. Moderate emphysema. Trace gas within the right pleural space. Right-sided chest tube terminates within the posterior pleural space near the apex. There is a partially visualized second drainage tube seen anteriorly at the lung base. This is likely subdiaphragmatic. Trace right pleural effusion has significantly improved. No significant left pleural effusion. Consolidation at the base of the right lower lobe and left lower lobe posteriorly. This is nonspecific but favors atelectasis. A pneumonia could also have a similar appearance. Linear densities within the lung bases also favor subsegmental atelectasis. Focal irregular density within the right lung apex posteriorly best in image 45 which measures 12 mm. This favors an area of scarring. Limited views of the upper abdomen demonstrate a normal liver and spleen. Visualized adrenal glands are unremarkable. A right PICC terminates in the SVC. The heart is normal in size. No mediastinal or hilar lymphadenopathy. Normal caliber thoracic aorta. IMPRESSION: 1. Significant improvement in the trace right hydropneumothorax status post chest tube placement. 2. Consolidation at the base of the right lower lobe favors atelectasis. A pneumonia could also a similar appearance. 3. Moderate emphysema. 4. A 12 mm focal irregular density within the right lung apex posteriorly as described above. This favors an area of scarring. However, [address] follow-up is recommended to ensure stability/resolution. Electronically signed by: Jordin Andrews M.D. 11/23/2017 8:25 AM Dictated Date/Time: 11/23/2017 8:07 AM
[2017-11-23] MEDS: LINEZOLID / D5W 600 MG in PREMIXED IN D5W 300 ML IV SCH ×2 (08:37→19:24)
[2017-11-23] MEDS: NORMOSOL R 1,000 ML IV SCH ×4 (08:37→20:37)
[2017-11-23] MEDS: FAMOTIDINE 20 MG TAB PO SCH ×2 (08:38→20:42)
[2017-11-23] MEDS: DOCUSATE SODIUM 100 MG CAP PO SCH ×2 (08:38→20:42)
[2017-11-23] MEDS: HEPARIN SOD 5000 UNIT/0.5 ML CARP SQ SCH ×2 (08:40→20:44)
[2017-11-23] MEDS ORDERED: FENTANYL PATCH REMOVE & WASTE SCH (08:59)
[2017-11-23] MEDS: NICOTINE 14 MG/24 HR TDSY TD SCH (09:16)
[2017-11-23] MEDS: DORNASE ALFA 5 ML in SYRINGE 25 ML IPL SCH ×2 (09:18→20:43)
--- NOTE | 2017-11-23 09:52 | Nephrology Progress Note ---
Nephrology Progress Note Date of Service Nov 23, 2017. Chief Complaint F/U for acute kidney injury. Subjective Jerry was seen and examined in his room this am. Renal function continues to improve, over all doing better, BP stable, cr 1.5. Non oliguric. Review of Systems A complete review of systems was performed. Pertinent positives are noted above. All other systems are negative. Vital Signs Last 8 Hrs Date Time Temp Pulse Resp B/P (MAP) Pulse Ox O2 Delivery O2 Flow Rate FiO2 11/23/17 06:00 90 121/81 (94) 100 Nasal Cannula 2.0 11/23/17 05:00 93 119/80 (93) 99 11/23/17 04:00 99 Nasal Cannula 2.0 11/23/17 04:00 36.4 95 16 121/88 (99) 100 Nasal Cannula 2.0 11/23/17 03:00 98 107/63 (78) 97 11/23/17 02:00 103 118/73 (88) 98 Nasal Cannula 2.0 11/23/17 01:00 103 122/78 (93) 98 Last Recorded Weight Weight (Kilograms): 75.200 Physical Exam GENERAL: young male, AAA x 3, ill appearing, In [id number] distress NECK: Supple, no JVD. RESPIRATORY: Normal breathing efforts, rt sided PleurX cath in place, clear to auscultation. CARDIOVASCULAR: S1, S2 normal, rate rhythm regular. EXTREMITY: No lower extremity edema NEURO: speech fluent. PSYCHIATRY: Normal mood and judgment Family History No known family history of chronic kidney disease or end-stage renal disease. Laboratory Results Past 24 Hours 11/23/17 05:08 11/23/17 05:08 Test 11/22/17 11:08 11/23/17 05:08 Bedside Glucose 123 mg/dl (70-99) Red Blood Count 2.76 M/uL (4.7-6.1) Mean Corpuscular Volume 93.8 fL (80-100) Mean Corpuscular Hemoglobin 29.7 pg (25-34) Mean Corpuscular Hemoglobin Concent 31.7 g/dl (32-36) RDW Standard Deviation 51.0 fL (36.4-46.3) RDW Coefficient of Variation 15.1 % (11.5-14.5) Mean Platelet Volume 8.5 fL (7.4-10.4) Anion Gap 6.0 mmol/L (3-11) Est Creatinine Clear Calc Drug Dose 63.9 ml/min Estimated GFR () 69.1 Estimated GFR (Non- 59.6 BUN/Creatinine Ratio 12.7 (10-20) Calcium Level 7.9 mg/dl (8.5-10.1) Phosphorus Level 4.1 mg/dl (2.5-4.9) Magnesium Level 1.8 mg/dl (1.8-2.4) Procalcitonin 0.61 ng/ml (0-0.5) Allergies Coded Allergies: No Known Allergies (Unverified , 02/13/08) Medications Current Inpatient Medications Medications (Trade) Dose Ordered Sig/Porsche Route Start Time Stop Time Status Last Admin Dose Admin Heparin Sodium (Porcine) (Heparin Sq 5000 Unit/0.5ml) 5,000 unit Q12 SQ 11/20/17 21:00 12/20/17 20:59 11/22/17 21:14 5,000 UNIT Linezolid 600 mg/ Prmx 300 ml @ 300 mls/hr Q12@0800,2000 IV 11/20/17 20:00 11/27/17 19:59 11/22/17 21:13 300 MLS/HR Acetaminophen 1000 mg/Empty Bag 100 ml @ 400 mls/hr Q8H IV 11/20/17 18:00 12/20/17 17:59 11/23/17 01:51 400 MLS/HR Ondansetron HCl (Zofran Inj) 4 mg Q6H PRN IV 11/20/17 17:15 12/20/17 17:14 11/21/17 22:31 4 MG Dornase Judd 5 ml/ Syringe 30 ml @ 0 mls/hr Q12@0900,2100 IPL 11/20/17 22:00 11/23/17 09:01 11/22/17 21:13 5 MLS/HR Morphine Sulfate (MoRPHine SULFATE INJ) 2 mg Q2H PRN IV 11/21/17 08:00 12/05/17 07:59 11/23/17 07:39 2 MG Parenteral Electrolyte Solution 1,000 ml @ 100 mls/hr Q10H IV 11/21/17 09:15 12/21/17 09:14 11/23/17 00:00 100 MLS/HR Imipenem/ Cilastatin Sodium 500 mg/Dextrose 120 ml @ 100 mls/hr Q8H IV 11/21/17 12:00 11/28/17 11:59 11/23/17 03:50 100 MLS/HR Enteral Nutritional Formula (Boost) 1 can AC PO 11/22/17 06:45 12/22/17 06:44 11/23/17 07:39 1 CAN Heparin Sodium (Porcine) (Heparin 10 Unit/ ml 5 ml Flush) 5 ml PRN PRN FLUSH 11/22/17 04:45 12/22/17 04:44 Miscellaneous Information (Check Fentanyl Patch Placement) 1 ea QS N/A 11/22/17 16:00 12/22/17 15:59 11/23/17 00:03 1 EA Docusate Sodium (coLACE CAP) 100 mg BID PO 11/22/17 09:00 12/22/17 08:59 11/22/17 21:14 100 MG Fentanyl (Duragesic Patch) 25 mcg Q72H TD 11/25/17 09:00 12/06/17 08:59 Famotidine (Pepcid Tab) 20 mg BID PO 11/23/17 09:00 12/23/17 08:59 Miscellaneous (Fentanyl Patch Remove & Waste) 1 ea Q72H N/A 11/23/17 08:59 12/23/17 08:58 Nicotine (Nicoderm Cq 14MG Patch) 1 patch QAM TD 11/23/17 09:00 12/23/17 08:59 Miscellaneous (Remove Nicoderm Patch) 1 ea HS N/A 11/23/17 21:00 12/23/17 20:59 Impression (1) Acute kidney injury (2) Metabolic acidosis (3) Anemia (4) Empyema 37-year-old gentlemen with acute kidney injury in the setting of recent multiple hospital admission and surgery for abdominal abscesses, reversal of Pepe procedure and then recent empyema with drainage yesterday. No known history of chronic kidney disease. Currently remain non-oliguric. Blood pressure stable. No renal ultrasound or urinalysis available. No history of NSAID use. On admission creatinine was 2.3 which slightly improved to 1.9 this morning. Acute kidney injury most likely hemodynamically mediated in the setting of recent multiple hospital admissions surgery. Renal function seems to be already improving. Can't exclude other possibilities such as any intrinsic renal disease however seems unlikely as renal function started to improve. Recommendations --renal function continues to improve from recent acute kidney injury, urinalysis with no proteinuria hematuria.cr down to 1.5 --continue to monitor renal function daily renal panel --hemodynamics support and avoid hypotension --avoid nephrotoxic medications Will follow
[2017-11-23] MEDS: FENTANYL PATCH REMOVE & WASTE SCH (09:59)
[2017-11-23] MEDS: FENTANYL 25 MCG/HR TDSY TD SCH (10:31)
--- NOTE | 2017-11-23 11:58 | Surgery Progress Note ---
Surgery Progress Note Date of Service Nov 23, 2017. Subjective tolerating clears + boost, flatus no BM yet but feels like will soon Objective Vital Signs: Date Time Temp Pulse Resp B/P (MAP) Pulse Ox O2 Delivery O2 Flow Rate FiO2 11/23/17 10:00 89 126/77 (93) 100 Nasal Cannula 2.0 11/23/17 08:00 Nasal Cannula 2.0 11/23/17 08:00 Nasal Cannula 11/23/17 08:00 36.6 99 127/85 (99) 97 Nasal Cannula 2.0 11/23/17 06:00 90 121/81 (94) 100 Nasal Cannula 2.0 11/23/17 05:00 93 119/80 (93) 99 11/23/17 04:00 99 Nasal Cannula 2.0 11/23/17 04:00 36.4 95 16 121/88 (99) 100 Nasal Cannula 2.0 11/23/17 03:00 98 107/63 (78) 97 11/23/17 02:00 103 118/73 (88) 98 Nasal Cannula 2.0 11/23/17 01:00 103 122/78 (93) 98 11/23/17 00:00 36.6 103 116/78 (91) 97 Nasal Cannula 2.0 11/22/17 23:59 96 Nasal Cannula 2.0 11/22/17 23:00 106 128/92 (104) 88 11/22/17 22:00 91 101/74 (83) 99 Nasal Cannula 2.0 11/22/17 21:00 94 113/78 (90) 98 11/22/17 20:00 96 Nasal Cannula 4.0 11/22/17 20:00 36.4 100 16 117/77 (90) 96 Nasal Cannula 4.0 11/22/17 19:00 97 111/72 (85) 96 11/22/17 18:00 94 111/68 (82) 96 Nasal Cannula 3.0 11/22/17 17:00 94 102/73 (83) 99 11/22/17 16:00 36.6 99 104/68 (80) 98 Nasal Cannula 3.0 11/22/17 15:30 98 Nasal Cannula 3.0 11/22/17 15:00 106 105/76 (86) 96 11/22/17 14:18 106 115/72 (86) 96 11/22/17 14:12 101 125/96 (106) 11/22/17 14:09 96 133/88 (103) 11/22/17 14:00 95 121/82 (95) 96 11/22/17 13:00 93 108/72 (84) 98 Nasal Cannula 3.0 11/22/17 12:00 36.6 94 120/82 (95) 96 Abdomen: soft, + pertinent finding (minimal drainage from JPs) Laboratory Results: Results Past 24 Hours Test 11/23/17 05:08 Range/Units White Blood Count 17.88 4.8-10.8 K/uL Red Blood Count 2.76 4.7-6.1 M/uL Hemoglobin 8.2 14.0-18.0 g/dL Hematocrit 25.9 42-52 % Mean Corpuscular Volume 93.8 80-100 fL Mean Corpuscular Hemoglobin 29.7 25-34 pg Mean Corpuscular Hemoglobin Concent 31.7 32-36 g/dl RDW Standard Deviation 51.0 36.4-46.3 fL RDW Coefficient of Variation 15.1 11.5-14.5 % Platelet Count 725 130-400 K/uL Mean Platelet Volume 8.5 7.4-10.4 fL Sodium Level 137 136-145 mmol/L Potassium Level 3.8 3.5-5.1 mmol/L Chloride Level 105 98-107 mmol/L Carbon Dioxide Level 26 21-32 mmol/L Anion Gap 6.0 3-11 mmol/L Blood Urea Nitrogen 19 7-18 mg/dl Creatinine 1.48 0.60-1.40 mg/dl Est Creatinine Clear Calc Drug Dose 63.9 ml/min Estimated GFR () 69.1 Estimated GFR (Non- 59.6 BUN/Creatinine Ratio 12.7 10-20 Random Glucose 112 70-99 mg/dl Calcium Level 7.9 8.5-10.1 mg/dl Phosphorus Level 4.1 2.5-4.9 mg/dl Magnesium Level 1.8 1.8-2.4 mg/dl Procalcitonin 0.61 0-0.5 ng/ml CT IMPRESSION: 1. The examination is limited due to the lack of intravenous and oral contrast 2. Small bilateral pleural effusions 3. Right-sided chest tube 4. Dense consolidation of the right lower lobe with air bronchograms 5. Equivocal 2 cm subcapsular collection within the right hepatic lobe 6. Distended gallbladder 7. Mild splenomegaly 8. No evidence of bowel obstruction. No evidence of free air 9. Right upper quadrant and bilateral lower quadrant drainage catheters 10. The left lower quadrant drainage catheter traverses an equivocal small abscess Electronically signed by: Mitchell Baldwin M.D. 11/23/2017 8:21 AM Dictated Date/Time: 11/23/2017 8:07 AM Assessment & Plan 1. right empyema 2. s/p colostomy takedown and re-exploration CT findings reassuring. Continue liquid diet, advance as alysia when bowels are moving. He wants to stay on clears for now. Maintain all drains. Seen earlier by Dr. Cruz.
--- NOTE | 2017-11-23 12:59 | Critical Care Progress Note ---
Critical Care Progress Note Date of Service Nov 23, 2017. Attending Dr. Flor Subjective PleurX continues to drain well, 695 cc/24 hrs Still complaining of pain requiring narcotics OOB in chair Objective General: Young male, in mild distress Heent: NC/AT Lungs: Diminished breath sounds on the right, fairly clear. Right sided PleurX CVS:S1S2 regular Abd: Laparotomy wound with retention sutures. 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 It seems to be working well so far. CT chest/abdomen/pelvis done today, showing significant improvement in the collection. Has residual pneumonia Empiric broad spectrum coverage. On Zyvox and Primaxin Fluid culture remains sterile. Pain control. Increase fentanyl patch to 50 mcg/hr Incentive spirometry Advance diet as tolerated. Started on Boost yesterday, seems to like it Leave abdominal drains in for the time being Ct abdomen reviewed, no free air, equivocal small abscess in LLQ and another equivocal small subcapsular abscess within the right hepatic lobe. Doubt they warrant any intervention Renal function steadily improving, urine output adequate DVT prophylaxis: SC heparin Critical care time spent with the patient, reviewing chart, discussing with sister, excluding procedures, greater than 25 minutes Consults & Procedures Consultants: Thoracic surgery - Dr Strong General surgery - Dr Cruz ID - Dr Jauregui Nephrology - Dr Lam Procedures: 11/20/17 - PleurX Data Medications: Current Inpatient Medications Medications (Trade) Dose Ordered Sig/Porsche Route Start Time Stop Time Status Last Admin Dose Admin Heparin Sodium (Porcine) (Heparin Sq 5000 Unit/0.5ml) 5,000 unit Q12 SQ 11/20/17 21:00 12/20/17 20:59 11/23/17 08:40 5,000 UNIT Linezolid 600 mg/ Prmx 300 ml @ 300 mls/hr Q12@0800,2000 IV 11/20/17 20:00 11/27/17 19:59 11/23/17 08:37 300 MLS/HR Acetaminophen 1000 mg/Empty Bag 100 ml @ 400 mls/hr Q8H IV 11/20/17 18:00 12/20/17 17:59 11/23/17 09:18 400 MLS/HR Ondansetron HCl (Zofran Inj) 4 mg Q6H PRN IV 11/20/17 17:15 12/20/17 17:14 11/21/17 22:31 4 MG Morphine Sulfate (MoRPHine SULFATE INJ) 2 mg Q2H PRN IV 11/21/17 08:00 12/05/17 07:59 11/23/17 12:13 2 MG Parenteral Electrolyte Solution 1,000 ml @ 100 mls/hr Q10H IV 11/21/17 09:15 12/21/17 09:14 11/23/17 08:37 100 MLS/HR Imipenem/ Cilastatin Sodium 500 mg/Dextrose 120 ml @ 100 mls/hr Q8H IV 11/21/17 12:00 11/28/17 11:59 11/23/17 12:05 100 MLS/HR Enteral Nutritional Formula (Boost) 1 can AC PO 11/22/17 06:45 12/22/17 06:44 11/23/17 10:32 1 CAN Heparin Sodium (Porcine) (Heparin 10 Unit/ ml 5 ml Flush) 5 ml PRN PRN FLUSH 11/22/17 04:45 12/22/17 04:44 Docusate Sodium (coLACE CAP) 100 mg BID PO 11/22/17 09:00 12/22/17 08:59 11/23/17 08:38 100 MG Famotidine (Pepcid Tab) 20 mg BID PO 11/23/17 09:00 12/23/17 08:59 11/23/17 08:38 20 MG Nicotine (Nicoderm Cq 14MG Patch) 1 patch QAM TD 11/23/17 09:00 12/23/17 08:59 11/23/17 09:16 1 PATCH Miscellaneous (Remove Nicoderm Patch) 1 ea HS N/A 11/23/17 21:00 12/23/17 20:59 Fentanyl (Duragesic Patch) 25 mcg Q72H TD 11/23/17 10:00 12/07/17 09:59 11/23/17 10:31 25 MCG Miscellaneous Information (Check Fentanyl Patch Placement) 1 ea QS N/A 11/23/17 16:00 12/23/17 15:59 Miscellaneous (Fentanyl Patch Remove & Waste) 1 ea Q72H N/A 11/23/17 09:59 12/23/17 09:58 11/23/17 09:59 1 EA Alteplase, Recombinant 10 mg/ Syringe 60 ml @ 0 mls/hr Q12@0600,1800 IPL 11/23/17 18:00 11/26/17 06:01 Dornase Judd 5 ml/ Syringe 30 ml @ 0 mls/hr Q12@0900,2100 IPL 11/23/17 21:00 11/26/17 09:01 I & O: 24-Hour Column 11/24/17 08:00 Output Total 75 ml Balance -75 ml Vital Signs: Date Time Temp Pulse Resp B/P (MAP) Pulse Ox O2 Delivery O2 Flow Rate FiO2 11/23/17 10:00 89 126/77 (93) 100 Nasal Cannula 2.0 11/23/17 08:00 Nasal Cannula 2.0 11/23/17 08:00 Nasal Cannula 11/23/17 08:00 36.6 99 127/85 (99) 97 Nasal Cannula 2.0 11/23/17 06:00 90 121/81 (94) 100 Nasal Cannula 2.0 11/23/17 05:00 93 119/80 (93) 99 11/23/17 04:00 99 Nasal Cannula 2.0 11/23/17 04:00 36.4 95 16 121/88 (99) 100 Nasal Cannula 2.0 11/23/17 03:00 98 107/63 (78) 97 11/23/17 02:00 103 118/73 (88) 98 Nasal Cannula 2.0 11/23/17 01:00 103 122/78 (93) 98 11/23/17 00:00 36.6 103 116/78 (91) 97 Nasal Cannula 2.0 11/22/17 23:59 96 Nasal Cannula 2.0 11/22/17 23:00 106 128/92 (104) 88 11/22/17 22:00 91 101/74 (83) 99 Nasal Cannula 2.0 11/22/17 21:00 94 113/78 (90) 98 11/22/17 20:00 96 Nasal Cannula 4.0 11/22/17 20:00 36.4 100 16 117/77 (90) 96 Nasal Cannula 4.0 11/22/17 19:00 97 111/72 (85) 96 11/22/17 18:00 94 111/68 (82) 96 Nasal Cannula 3.0 11/22/17 17:00 94 102/73 (83) 99 11/22/17 16:00 36.6 99 104/68 (80) 98 Nasal Cannula 3.0 11/22/17 15:30 98 Nasal Cannula 3.0 11/22/17 15:00 106 105/76 (86) 96 11/22/17 14:18 106 115/72 (86) 96 11/22/17 14:12 101 125/96 (106) 11/22/17 14:09 96 133/88 (103) 11/22/17 14:00 95 121/82 (95) 96 11/22/17 13:00 93 108/72 (84) 98 Nasal Cannula 3.0 Laboratory Results: Last 24 Hours Test 11/23/17 05:08 White Blood Count 17.88 K/uL Red Blood Count 2.76 M/uL Hemoglobin 8.2 g/dL Hematocrit 25.9 % Mean Corpuscular Volume 93.8 fL Mean Corpuscular Hemoglobin 29.7 pg Mean Corpuscular Hemoglobin Concent 31.7 g/dl RDW Standard Deviation 51.0 fL RDW Coefficient of Variation 15.1 % Platelet Count 725 K/uL Mean Platelet Volume 8.5 fL Sodium Level 137 mmol/L Potassium Level 3.8 mmol/L Chloride Level 105 mmol/L Carbon Dioxide Level 26 mmol/L Anion Gap 6.0 mmol/L Blood Urea Nitrogen 19 mg/dl Creatinine 1.48 mg/dl Est Creatinine Clear Calc Drug Dose 63.9 ml/min Estimated GFR () 69.1 Estimated GFR (Non- 59.6 BUN/Creatinine Ratio 12.7 Random Glucose 112 mg/dl Calcium Level 7.9 mg/dl Phosphorus Level 4.1 mg/dl Magnesium Level 1.8 mg/dl Procalcitonin 0.61 ng/ml
--- NOTE | 2017-11-23 15:01 | Surgery Progress Note ---
Subjective Date of Service: Nov 23, 2017. Pt. doing well. He denies SOB or abdominal pain. Objective Vitals Date Time Temp Pulse Resp B/P (MAP) Pulse Ox O2 Delivery O2 Flow Rate FiO2 11/23/17 14:00 85 22 105/75 (85) 100 Nasal Cannula 2.0 11/23/17 12:00 Nasal Cannula 2.0 11/23/17 12:00 36.4 100 22 112/71 (85) 98 Nasal Cannula 2.0 11/23/17 10:00 89 126/77 (93) 100 Nasal Cannula 2.0 11/23/17 08:00 Nasal Cannula 2.0 11/23/17 08:00 Nasal Cannula 11/23/17 08:00 36.6 99 127/85 (99) 97 Nasal Cannula 2.0 11/23/17 06:00 90 121/81 (94) 100 Nasal Cannula 2.0 11/23/17 05:00 93 119/80 (93) 99 11/23/17 04:00 99 Nasal Cannula 2.0 11/23/17 04:00 36.4 95 16 121/88 (99) 100 Nasal Cannula 2.0 11/23/17 03:00 98 107/63 (78) 97 11/23/17 02:00 103 118/73 (88) 98 Nasal Cannula 2.0 11/23/17 01:00 103 122/78 (93) 98 11/23/17 00:00 36.6 103 116/78 (91) 97 Nasal Cannula 2.0 11/22/17 23:59 96 Nasal Cannula 2.0 11/22/17 23:00 106 128/92 (104) 88 11/22/17 22:00 91 101/74 (83) 99 Nasal Cannula 2.0 11/22/17 21:00 94 113/78 (90) 98 11/22/17 20:00 96 Nasal Cannula 4.0 11/22/17 20:00 36.4 100 16 117/77 (90) 96 Nasal Cannula 4.0 11/22/17 19:00 97 111/72 (85) 96 11/22/17 18:00 94 111/68 (82) 96 Nasal Cannula 3.0 11/22/17 17:00 94 102/73 (83) 99 11/22/17 16:00 36.6 99 104/68 (80) 98 Nasal Cannula 3.0 11/22/17 15:30 98 Nasal Cannula 3.0 11/22/17 15:00 106 105/76 (86) 96 Physical Exam General: + well developed, + well nourished, No distress Pulmonary: + pertinent finding (BS are decreased at bases), No accessory muscle use, No respiratory distress Neurologic: + alert & oriented x [address] scan of chest/abdomen shows marked improvement of right pleural effusion/ empyema Assessment & Plan 37 year old male with right sided empyema -although empyema improved, a small amount of fluid remains -will continue the MIST 2 protocol -continue abx. as ordered -continue mgt. of abdominal issues as directed by general surgery (pt. with hx. of perfoated diverticulitis/[place] procedure with subsequrnt reversal and development of intra-abdominal abscess -ambulate as able OTHER -sub-q heparin is in place for DVT prevention
[2017-11-23] MEDS ORDERED: ALTEPLASE, RECOMBINANT 10 MG in SYRINGE 50 ML IPL SCH (18:00)
[2017-11-23] MEDS ORDERED: DORNASE ALFA 5 ML in SYRINGE 25 ML IPL SCH (21:00)
--- NOTE | 2017-11-23 21:21 | Infectious Disease Progress Nt ---
Progress Note Date of Service Nov 23, 2017. Subjective Pt evaluation today including: conversation w/ patient, physical exam, chart review, lab review, review of studies, conversation w/ organizational research consultant, review of inpatient medication list Patient feeling better today. Remains afebrile. Cultures remain negative. Still with some chest pain and drainage from pleural catheter. All Other Systems: Reviewed and Negative Medications Current Inpatient Medications Medications (Trade) Dose Ordered Sig/Porsche Route Start Time Stop Time Status Last Admin Dose Admin Heparin Sodium (Porcine) (Heparin Sq 5000 Unit/0.5ml) 5,000 unit Q12 SQ 11/20/17 21:00 12/20/17 20:59 11/23/17 20:44 5,000 UNIT Linezolid 600 mg/ Prmx 300 ml @ 300 mls/hr Q12@0800,2000 IV 11/20/17 20:00 11/27/17 19:59 11/23/17 19:24 300 MLS/HR Acetaminophen 1000 mg/Empty Bag 100 ml @ 400 mls/hr Q8H IV 11/20/17 18:00 12/20/17 17:59 11/23/17 18:07 400 MLS/HR Ondansetron HCl (Zofran Inj) 4 mg Q6H PRN IV 11/20/17 17:15 12/20/17 17:14 11/21/17 22:31 4 MG Morphine Sulfate (MoRPHine SULFATE INJ) 2 mg Q2H PRN IV 11/21/17 08:00 12/05/17 07:59 11/23/17 20:48 2 MG Parenteral Electrolyte Solution 1,000 ml @ 100 mls/hr Q10H IV 11/21/17 09:15 12/21/17 09:14 11/23/17 20:37 100 MLS/HR Imipenem/ Cilastatin Sodium 500 mg/Dextrose 120 ml @ 100 mls/hr Q8H IV 11/21/17 12:00 11/28/17 11:59 11/23/17 19:24 100 MLS/HR Enteral Nutritional Formula (Boost) 1 can AC PO 11/22/17 06:45 12/22/17 06:44 11/23/17 16:01 1 CAN Heparin Sodium (Porcine) (Heparin 10 Unit/ ml 5 ml Flush) 5 ml PRN PRN FLUSH 11/22/17 04:45 12/22/17 04:44 Docusate Sodium (coLACE CAP) 100 mg BID PO 11/22/17 09:00 12/22/17 08:59 11/23/17 20:42 100 MG Famotidine (Pepcid Tab) 20 mg BID PO 11/23/17 09:00 12/23/17 08:59 11/23/17 20:42 20 MG Nicotine (Nicoderm Cq 14MG Patch) 1 patch QAM TD 11/23/17 09:00 12/23/17 08:59 11/23/17 09:16 1 PATCH Miscellaneous (Remove Nicoderm Patch) 1 ea HS N/A 11/23/17 21:00 12/23/17 20:59 11/23/17 20:39 1 EA Fentanyl (Duragesic Patch) 25 mcg Q72H TD 11/23/17 10:00 12/07/17 09:59 11/23/17 10:31 25 MCG Miscellaneous Information (Check Fentanyl Patch Placement) 1 ea QS N/A 11/23/17 16:00 12/23/17 15:59 11/23/17 16:08 1 EA Miscellaneous (Fentanyl Patch Remove & Waste) 1 ea Q72H N/A 11/23/17 09:59 12/23/17 09:58 11/23/17 09:59 1 EA Alteplase, Recombinant 10 mg/ Syringe 60 ml @ 0 mls/hr Q12@0600,1800 IPL 11/23/17 18:00 11/26/17 06:01 11/23/17 18:08 60 MLS/HR Dornase Judd 5 ml/ Syringe 30 ml @ 0 mls/hr Q12@0900,2100 IPL 11/23/17 21:00 11/26/17 09:01 11/23/17 20:43 5 MLS/HR Objective Vital Signs Date Time Temp Pulse Resp B/P (MAP) Pulse Ox O2 Delivery O2 Flow Rate FiO2 11/23/17 20:00 97 Nasal Cannula 2.0 11/23/17 20:00 36.4 98 20 114/66 (82) 98 Nasal Cannula 2.0 11/23/17 18:00 92 18 113/78 (90) 98 Nasal Cannula 2.0 11/23/17 16:00 36.6 90 20 121/83 (96) 97 Nasal Cannula 2.0 11/23/17 16:00 97 Nasal Cannula 2.0 11/23/17 14:00 85 22 105/75 (85) 100 Nasal Cannula 2.0 11/23/17 12:00 Nasal Cannula 2.0 11/23/17 12:00 36.4 100 22 112/71 (85) 98 Nasal Cannula 2.0 11/23/17 10:00 89 126/77 (93) 100 Nasal Cannula 2.0 11/23/17 08:00 Nasal Cannula 2.0 11/23/17 08:00 Nasal Cannula 11/23/17 08:00 36.6 99 127/85 (99) 97 Nasal Cannula 2.0 11/23/17 06:00 90 121/81 (94) 100 Nasal Cannula 2.0 11/23/17 05:00 93 119/80 (93) 99 11/23/17 04:00 99 Nasal Cannula 2.0 11/23/17 04:00 36.4 95 16 121/88 (99) 100 Nasal Cannula 2.0 11/23/17 03:00 98 107/63 (78) 97 11/23/17 02:00 103 118/73 (88) 98 Nasal Cannula 2.0 11/23/17 01:00 103 122/78 (93) 98 11/23/17 00:00 36.6 103 116/78 (91) 97 Nasal Cannula 2.0 11/22/17 23:59 96 Nasal Cannula 2.0 11/22/17 23:00 106 128/92 (104) 88 11/22/17 22:00 91 101/74 (83) 99 Nasal Cannula 2.0 Physical Exam General Appearance: no apparent distress, + pertinent finding (Chronically ill- appearing) Eyes: normal inspection, EOMI, sclerae normal ENT: normal ENT inspection, hearing grossly normal, pharynx normal Neck: supple, no adenopathy, trachea midline Respiratory/Chest: no respiratory distress, no accessory muscle use, + decreased breath sounds (Right-sided) Cardiovascular: regular rate, rhythm, no gallop, no murmur Abdomen: normal bowel sounds, non tender, soft, no organomegaly, + pertinent finding (Retention sutures in place) Extremities: non-tender, no calf tenderness Neurologic/Psychiatric: alert, oriented x 3 Skin: normal color, warm/dry, no rash Lymphatic: no adenopathy Laboratory Results RUN DATE: 11/23/17 [facility] LAB PAGE 1 RUN TIME: 1150 Specimen Inquiry PATIENT: MITCHEL RICE LOC: [facility] U # : [id number] AGE/SX: 37/M ROOM: E101 REG : 11/20/[address]: Dav Strong MD : [id number] BED: 1 DIS : STATUS: ADM IN TLOC: SPEC #: [id number] ELLYN: 11/20/17-1649 STATUS: RES REQ #: [id number] RECD: 11/20/17-[address]: James Castañeda PA SOURCE: PLEURAL FL ENTR: 11/20/17-[address]: Clary Doctor, Assigned SPDESC: Josselyn Melara DO ORDERED: AER/BENI CULTSMR COMMENTS: Specimen Comment Tube #2 Has Specimen Been Obtained/Collected? Y Procedure Result Verified Site GRAM STAIN Final 11/21/17-0710 RESULT MANY POLYS NO ORGANISMS SEEN Phoned results to ADAM LINN on 11/20/17 at 1817 by Virginia Elder. Results were verbalized back to NAYANA. OR AER/BENI CULT Preliminary 11/23/17-1150 NO GROWTH TO DATE. Last 24 Hours Test 11/23/17 05:08 11/23/17 20:38 White Blood Count 17.88 K/uL Red Blood Count 2.76 M/uL Hemoglobin 8.2 g/dL Hematocrit 25.9 % Mean Corpuscular Volume 93.8 fL Mean Corpuscular Hemoglobin 29.7 pg Mean Corpuscular Hemoglobin Concent 31.7 g/dl RDW Standard Deviation 51.0 fL RDW Coefficient of Variation 15.1 % Platelet Count 725 K/uL Mean Platelet Volume 8.5 fL Sodium Level 137 mmol/L Potassium Level 3.8 mmol/L Chloride Level 105 mmol/L Carbon Dioxide Level 26 mmol/L Anion Gap 6.0 mmol/L Blood Urea Nitrogen 19 mg/dl Creatinine 1.48 mg/dl Est Creatinine Clear Calc Drug Dose 63.9 ml/min Estimated GFR () 69.1 Estimated GFR (Non- 59.6 BUN/Creatinine Ratio 12.7 Random Glucose 112 mg/dl Calcium Level 7.9 mg/dl Phosphorus Level 4.1 mg/dl Magnesium Level 1.8 mg/dl Procalcitonin 0.61 ng/ml Bedside Glucose 133 mg/dl CHEST ONE VIEW PORTABLE CLINICAL HISTORY: pleurx PLEURAL EFFUSION COMPARISON STUDY: 11/22/2017 FINDINGS: The cardiac and mediastinal contours remain stable. The right-sided PICC catheter remains unchanged in position. The right-sided Pleurx catheter remains unchanged in position. There are persistent hazy opacities within the right middle lower lung zone. There is a suspected small right pleural effusion. Minor left basilar opacities remain similar, and likely atelectatic. IMPRESSION: Stable findings Electronically signed by: Mitchell Baldwin M.D. 11/23/2017 6:53 AM Dictated Date/Time: 11/23/2017 6:51 AM Assessment and Plan Right empyema following multiple surgeries for diverticulitis/abscess, now s/p Pleur-X drainage. Linezolid and imipenem appropriate . Will continue with length of IV antibiotics to be determined by clinical response. Await final culture results. Will follow.
[2017-11-24] VITALS (12 sets, daily range): BP systolic 110–152; BP diastolic 76–93; PULSE 63–98; TEMP 36–36.6; O2SAT 93–97
[2017-11-24] MEDS: ACETAMINOPHEN IV 1,000 MG in EMPTY BAG 0 ML IV SCH ×3 (01:51→18:26)
[2017-11-24] MEDS: CHECK FENTANYL PATCH PLACEMENT SCH ×3 (02:16→16:17)
[2017-11-24] MEDS: IMIPENEM-CILASTATIN 500 MG in DEXTROSE 5% 100ML 100 ML IV SCH ×4 (03:51→22:27)
[2017-11-24] MEDS: MoRPHine SULFATE 2 MG/ML CARP IV PRN ×6 (05:30→21:58)
[2017-11-24] MEDS: ALTEPLASE, RECOMBINANT 10 MG in SYRINGE 50 ML IPL SCH ×2 (05:33→19:34)
[2017-11-24 06:17] LABS: BASO % 0.4 %; BASO ABS # 0.06 K/uL (0-0.2); EOS % 3.2 %; EOS ABS # 0.44 K/uL (0-0.5); HEMATOCRIT 26.1 % (42-52); HEMOGLOBIN 8.2 g/dL (14.0-18.0); IG# 0.09 K/uL (0.00-0.02); LYMPH % 16.8 %; LYMPH ABS # 2.31 K/uL (1.2-3.4); MEAN CELL VOLUME 94.2 fL (80-100); MEAN CORPUSCULAR HEMOGLOBIN 29.6 pg (25-34); MEAN CORPUSCULAR HGB CONC 31.4 g/dl (32-36); MEAN PLATELET VOLUME 8.5 fL (7.4-10.4); MONO % 5.5 %; MONO ABS # 0.76 K/uL (0.11-0.59); NEUT % 73.4 %; NEUT ABS # 10.08 K/uL (1.4-6.5); PLATELET COUNT 759 K/uL (130-400); RED CELL DISTRIBUTION WIDTH SD 50.6 fL (36.4-46.3); WHITE BLOOD COUNT 13.74 K/uL (4.8-10.8)
[2017-11-24] MEDS ORDERED: MoRPHine SULFATE 2 MG/ML CARP IV STA (06:44)
[2017-11-24 06:52] LABS: ALBUMIN 1.4 gm/dl (3.4-5.0); CALCIUM 7.9 mg/dl (8.5-10.1); CREATININE 1.32 mg/dl (0.60-1.40); POTASSIUM 3.4 mmol/L (3.5-5.1)
[2017-11-24 06:55] LABS: TOTAL PROTEIN 6.6 gm/dl (6.4-8.2)
--- NOTE | 2017-11-24 07:21 | DIAGNOSTIC IMAGING REPORT ---
CHEST ONE VIEW PORTABLE CLINICAL HISTORY: pleurx catheter placement COMPARISON STUDY: 11/23/2017 FINDINGS: Drainage catheter right hemithorax in good position. No postprocedural pneumothorax. PICC catheter in the superior vena cava. Small right effusion persists as well as fluid within the right minor fissure. IMPRESSION: Slight improvement in aeration right lung base. Tubes and lines positioned as noted. No evidence pneumothorax. The above report was generated using voice recognition software. It may contain grammatical, syntax or spelling errors. Electronically signed by: Jovi Tucker M.D. 11/24/2017 7:20 AM Dictated Date/Time: 11/24/2017 7:19 AM
[2017-11-24] MEDS: BOOST VANILLA PO SCH ×4 (08:01→16:57)
[2017-11-24] MEDS: NORMOSOL R 1,000 ML IV SCH ×2 (08:01→19:22)
[2017-11-24] MEDS: LINEZOLID / D5W 600 MG in PREMIXED IN D5W 300 ML IV SCH ×2 (08:03→19:46)
[2017-11-24] MEDS: DOCUSATE SODIUM 100 MG CAP PO SCH ×2 (08:04→19:50)
[2017-11-24] MEDS: NICOTINE 14 MG/24 HR TDSY TD SCH (08:04)
[2017-11-24] MEDS: FAMOTIDINE 20 MG TAB PO SCH ×2 (08:04→19:49)
[2017-11-24] MEDS: HEPARIN SOD 5000 UNIT/0.5 ML CARP SQ SCH ×2 (08:05→19:50)
--- NOTE | 2017-11-24 08:51 | SURGERY PROGRESS NOTE ---
DATE: 11/24/2017 Jerry is doing much better. The CAT scan from yesterday was reviewed. The abdominal aspects of it, there may have been still some irritation along the left lower quadrant where the drain site. No true abscess was appreciated, although it was noncontrast. The patient yesterday started moving his bowels. Today, he looks much better. His last vitals showed a temperature of 36.4. His pulse is 85, respiration 20, blood pressure 115/77, O2 sats 95 on 2 liters. I&O, he started to diurese. He had approximately 4 liters out yesterday, 1250 overnight. The Nelson drains have been virtually nondraining. I removed the right upper quadrant one and the right lower quadrant one. I left the left lower quadrant which is likely near the anastomosis, intact at this time. Laboratory lamar, his BUN and creatinine are decreasing. Last creatinine is 1.32 from a high of 2.56. The white count similarly is coming down. He still has a left shift, but is down to 13.74. The abdomen as stated is minimally distended, nontender. The retention sutures are still in. From my point of view, the patient can be advanced as far as his diet is concerned and I agree with transfer. The [facility] surgical group is covering the weekend.
[2017-11-24] MEDS ORDERED: FENTANYL PATCH REMOVE & WASTE SCH (08:59)
[2017-11-24] MEDS: DORNASE ALFA 5 ML in SYRINGE 25 ML IPL SCH ×2 (09:09→23:11)
--- NOTE | 2017-11-24 09:35 | Surgery Progress Note ---
Subjective Date of Service: Nov 24, 2017. Pt. notes his breathing has markedly improved since admission. Discussed with RN and he has been noted to be stable. Objective Vitals Date Time Temp Pulse Resp B/P (MAP) Pulse Ox O2 Delivery O2 Flow Rate FiO2 11/24/17 08:00 Nasal Cannula 2.0 11/24/17 08:00 36.5 97 20 116/84 (95) 96 Nasal Cannula 2.0 11/24/17 05:00 85 115/77 (90) 95 Nasal Cannula 2.0 11/24/17 04:00 84 119/78 (92) 97 Nasal Cannula 2.0 11/24/17 04:00 97 Nasal Cannula 2.0 11/24/17 03:00 94 119/76 (90) 93 Nasal Cannula 2.0 11/24/17 02:00 98 111/81 (91) 95 Nasal Cannula 2.0 11/24/17 01:00 97 117/79 (92) 95 Nasal Cannula 2.0 11/24/17 00:00 98 20 110/90 (97) 95 Nasal Cannula 2.0 11/23/17 23:59 95 Nasal Cannula 2.0 11/23/17 23:00 92 133/92 (106) 96 11/23/17 22:00 90 113/77 (89) 98 11/23/17 20:00 97 Nasal Cannula 2.0 11/23/17 20:00 36.4 98 20 114/66 (82) 98 Nasal Cannula 2.0 11/23/17 18:00 92 18 113/78 (90) 98 Nasal Cannula 2.0 11/23/17 16:00 36.6 90 20 121/83 (96) 97 Nasal Cannula 2.0 11/23/17 16:00 97 Nasal Cannula 2.0 11/23/17 14:00 85 22 105/75 (85) 100 Nasal Cannula 2.0 11/23/17 12:00 Nasal Cannula 2.0 11/23/17 12:00 36.4 100 22 112/71 (85) 98 Nasal Cannula 2.0 11/23/17 10:00 89 126/77 (93) 100 Nasal Cannula 2.0 Physical Exam General: + well developed, + well nourished Pulmonary: + pertinent finding (improved BS noted on right side, but decreased at base), No accessory muscle use, No respiratory distress Neurologic: + alert & oriented x 3 Radiology CXR shows improved aeration of right lung Drains / Tubes pleurex (100 cc after MIST protocol this am) Assessment & Plan 37 year old male with right sided empyema -empyema improved, with a small amount of fluid remaining -MIST 2 protocol to continue today -cultures reviewed and have no growth to date -continue abx. as ordered: -ID following -continue mgt. of abdominal issues as directed by general surgery (pt. with hx. of perfoated diverticulitis/Trujillo procedure with subsequrnt reversal and development of intra-abdominal abscess) -ambulate as able -nephrology input noted for LAZARO: -avoid hypotension and nephrotoxins -renal function improving OTHER -sub-q heparin is in place for DVT prevention
[2017-11-24] MEDS ORDERED: POTASSIUM CHLR 10 MEQ / WTR 10 MEQ in PREMIXED WATER 100 ML IV STA (09:43)
--- NOTE | 2017-11-24 10:39 | Nephrology Progress Note ---
Nephrology Progress Note Date of Service Nov 24, 2017. Chief Complaint F/U for acute kidney injury. Subjective Jerry was seen ands examined, overall doing better. BP stable, cr improved to 1.3 Review of Systems A complete review of systems was performed. Pertinent positives are noted above. All other systems are negative. Vital Signs Last 8 Hrs Date Time Temp Pulse Resp B/P (MAP) Pulse Ox O2 Delivery O2 Flow Rate FiO2 11/24/17 05:00 85 115/77 (90) 95 Nasal Cannula 2.0 11/24/17 04:00 84 119/78 (92) 97 Nasal Cannula 2.0 11/24/17 04:00 97 Nasal Cannula 2.0 11/24/17 03:00 94 119/76 (90) 93 Nasal Cannula 2.0 11/24/17 02:00 98 111/81 (91) 95 Nasal Cannula 2.0 11/24/17 01:00 97 117/79 (92) 95 Nasal Cannula 2.0 Last Recorded Weight Weight (Kilograms): 73.800 Physical Exam GENERAL: young male, AAA x 3, ill appearing, In [id number] distress NECK: Supple, no JVD. RESPIRATORY: Normal breathing efforts, rt sided PleurX cath in place, clear to auscultation. CARDIOVASCULAR: S1, S2 normal, rate rhythm regular. EXTREMITY: No lower extremity edema NEURO: speech fluent. PSYCHIATRY: Normal mood and judgment Family History No known family history of chronic kidney disease or end-stage renal disease. Laboratory Results Past 24 Hours 11/24/17 05:37 Red Blood Count 2.77, Mean Corpuscular Volume 94.2, Mean Corpuscular Hemoglobin 29.6, Mean Corpuscular Hemoglobin Concent 31.4, Mean Platelet Volume 8.5, Neutrophils (%) (Auto) 73.4, Lymphocytes (%) (Auto) 16.8, Monocytes (%) (Auto) 5.5, Eosinophils (%) (Auto) 3.2, Basophils (%) (Auto) 0.4, Neutrophils # (Auto) 10.08, Lymphocytes # (Auto) 2.31, Monocytes # (Auto) 0.76, Eosinophils # (Auto) 0.44, Basophils # (Auto) 0.06 11/24/17 05:37 Test 11/23/17 20:38 11/24/17 05:37 Bedside Glucose 133 mg/dl (70-99) White Blood Count 13.74 K/uL (4.8-10.8) Red Blood Count 2.77 M/uL (4.7-6.1) Hemoglobin 8.2 g/dL (14.0-18.0) Hematocrit 26.1 % (42-52) Mean Corpuscular Volume 94.2 fL (80-100) Mean Corpuscular Hemoglobin 29.6 pg (25-34) Mean Corpuscular Hemoglobin Concent 31.4 g/dl (32-36) Platelet Count 759 K/uL (130-400) Mean Platelet Volume 8.5 fL (7.4-10.4) Neutrophils (%) (Auto) 73.4 % Lymphocytes (%) (Auto) 16.8 % Monocytes (%) (Auto) 5.5 % Eosinophils (%) (Auto) 3.2 % Basophils (%) (Auto) 0.4 % Neutrophils # (Auto) 10.08 K/uL (1.4-6.5) Lymphocytes # (Auto) 2.31 K/uL (1.2-3.4) Monocytes # (Auto) 0.76 K/uL (0.11-0.59) Eosinophils # (Auto) 0.44 K/uL (0-0.5) Basophils # (Auto) 0.06 K/uL (0-0.2) RDW Standard Deviation 50.6 fL (36.4-46.3) RDW Coefficient of Variation 15.0 % (11.5-14.5) Immature Granulocyte % (Auto) 0.7 % Immature Granulocyte # (Auto) 0.09 K/uL (0.00-0.02) Stomatocytes 1+ Anion Gap 6.0 mmol/L (3-11) Est Creatinine Clear Calc Drug Dose 71.6 ml/min Estimated GFR () 79.3 Estimated GFR (Non- 68.4 BUN/Creatinine Ratio 13.3 (10-20) Calcium Level 7.9 mg/dl (8.5-10.1) Total Bilirubin 0.5 mg/dl (0.2-1) Direct Bilirubin 0.3 mg/dl (0-0.2) Aspartate Amino Transf (AST/SGOT) 24 U/L (15-37) Alanine Aminotransferase (ALT/SGPT) 24 U/L (12-78) Alkaline Phosphatase 316 U/L (45-117) Total Protein 6.6 gm/dl (6.4-8.2) Albumin 1.4 gm/dl (3.4-5.0) Allergies Coded Allergies: No Known Allergies (Unverified , 02/13/08) Medications Current Inpatient Medications Medications (Trade) Dose Ordered Sig/Porsche Route Start Time Stop Time Status Last Admin Dose Admin Heparin Sodium (Porcine) (Heparin Sq 5000 Unit/0.5ml) 5,000 unit Q12 SQ 11/20/17 21:00 12/20/17 20:59 11/24/17 08:05 5,000 UNIT Linezolid 600 mg/ Prmx 300 ml @ 300 mls/hr Q12@0800,2000 IV 11/20/17 20:00 11/27/17 19:59 11/24/17 08:03 300 MLS/HR Acetaminophen 1000 mg/Empty Bag 100 ml @ 400 mls/hr Q8H IV 11/20/17 18:00 12/20/17 17:59 11/24/17 01:51 400 MLS/HR Ondansetron HCl (Zofran Inj) 4 mg Q6H PRN IV 11/20/17 17:15 12/20/17 17:14 11/21/17 22:31 4 MG Morphine Sulfate (MoRPHine SULFATE INJ) 2 mg Q2H PRN IV 11/21/17 08:00 12/05/17 07:59 11/24/17 05:30 2 MG Parenteral Electrolyte Solution 1,000 ml @ 100 mls/hr Q10H IV 11/21/17 09:15 12/21/17 09:14 11/24/17 08:01 100 MLS/HR Imipenem/ Cilastatin Sodium 500 mg/Dextrose 120 ml @ 100 mls/hr Q8H IV 11/21/17 12:00 11/28/17 11:59 11/24/17 03:51 100 MLS/HR Enteral Nutritional Formula (Boost) 1 can AC PO 11/22/17 06:45 12/22/17 06:44 11/24/17 08:01 1 CAN Heparin Sodium (Porcine) (Heparin 10 Unit/ ml 5 ml Flush) 5 ml PRN PRN FLUSH 11/22/17 04:45 12/22/17 04:44 Docusate Sodium (coLACE CAP) 100 mg BID PO 11/22/17 09:00 12/22/17 08:59 11/24/17 08:04 100 MG Famotidine (Pepcid Tab) 20 mg BID PO 11/23/17 09:00 12/23/17 08:59 11/24/17 08:04 20 MG Nicotine (Nicoderm Cq 14MG Patch) 1 patch QAM TD 11/23/17 09:00 12/23/17 08:59 11/24/17 08:04 1 PATCH Miscellaneous (Remove Nicoderm Patch) 1 ea HS N/A 11/23/17 21:00 12/23/17 20:59 11/23/17 20:39 1 EA Fentanyl (Duragesic Patch) 25 mcg Q72H TD 11/23/17 10:00 12/07/17 09:59 11/23/17 10:31 25 MCG Miscellaneous Information (Check Fentanyl Patch Placement) 1 ea QS N/A 11/23/17 16:00 12/23/17 15:59 11/24/17 08:03 1 EA Miscellaneous (Fentanyl Patch Remove & Waste) 1 ea Q72H N/A 11/23/17 09:59 12/23/17 09:58 11/23/17 09:59 1 EA Alteplase, Recombinant 10 mg/ Syringe 60 ml @ 0 mls/hr Q12@0600,1800 IPL 11/23/17 18:00 11/26/17 06:01 11/24/17 05:33 10 MLS/HR Dornase Judd 5 ml/ Syringe 30 ml @ 0 mls/hr Q12@0900,2100 IPL 11/23/17 21:00 11/26/17 09:01 11/23/17 20:43 5 MLS/HR Impression (1) Acute kidney injury (2) Metabolic acidosis (3) Anemia (4) Empyema 37-year-old gentlemen with acute kidney injury in the setting of recent multiple hospital admission and surgery for abdominal abscesses, reversal of Pepe procedure and then recent empyema with drainage yesterday. No known history of chronic kidney disease. Currently remain non-oliguric. Blood pressure stable. No renal ultrasound or urinalysis available. No history of NSAID use. On admission creatinine was 2.3 which slightly improved to 1.9 this morning. Acute kidney injury most likely hemodynamically mediated in the setting of recent multiple hospital admissions surgery. Renal function seems to be already improving. Can't exclude other possibilities such as any intrinsic renal disease however seems unlikely as renal function started to improve. Recommendations --renal function continues to improve from recent acute kidney injury, urinalysis with no proteinuria hematuria.cr down to 1.3, expect full recovery. --continue to monitor renal function daily renal panel while in patient --hemodynamics support and avoid hypotension --avoid nephrotoxic medications Will sign off
--- NOTE | 2017-11-24 12:42 | Critical Care Progress Note ---
Critical Care Progress Note Date of Service Nov 24, 2017. Attending Dr. Flor Subjective Up in chair Frustrated by his overall condition Vomited when he had a regular meal today 2 abdominal drains removed Objective General: Young male, in mild distress Heent: NC/AT Lungs: Diminished breath sounds on the right, fairly clear. Right sided PleurX CVS:S1S2 regular Abd: Laparotomy wound with retention sutures. 1 drain Ext: Right arm PICC Skin: extensive tattoo work [employer]: No deficit. 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 It seems to be working well so far. CT chest/abdomen/pelvis on 11/23 showing significant improvement in the collection. Has residual pneumonia Ct abdomen reviewed, no free air, equivocal small abscess in LLQ and another equivocal small subcapsular abscess within the right hepatic lobe. Empiric broad spectrum coverage. On Zyvox and Primaxin Fluid culture remains sterile. Pain control. Fentanyl patch 50 mcg/hr Incentive spirometry Advance diet as tolerated. Vomited today. Change to puree diet Continue Boost yesterday, seems to like it Removed 2 of 3 abdominal drains Renal function normalized, urine output adequate Remove Grimm DVT prophylaxis: SC heparin Critical care time spent with the patient, reviewing chart, discussing with sister, excluding procedures, greater than 25 minutes From ICU perspective, could be downgraded to floor Consults & Procedures Consultants: Thoracic surgery - Dr Strong General surgery - Dr Cruz ID - Dr Jauregui Nephrology - Dr Lam Procedures: 11/20/17 - PleurX Data Medications: Current Inpatient Medications Medications (Trade) Dose Ordered Sig/Porsche Route Start Time Stop Time Status Last Admin Dose Admin Heparin Sodium (Porcine) (Heparin Sq 5000 Unit/0.5ml) 5,000 unit Q12 SQ 11/20/17 21:00 12/20/17 20:59 11/24/17 08:05 5,000 UNIT Linezolid 600 mg/ Prmx 300 ml @ 300 mls/hr Q12@0800,2000 IV 11/20/17 20:00 11/27/17 19:59 11/24/17 08:03 300 MLS/HR Acetaminophen 1000 mg/Empty Bag 100 ml @ 400 mls/hr Q8H IV 11/20/17 18:00 12/20/17 17:59 11/24/17 09:10 400 MLS/HR Ondansetron HCl (Zofran Inj) 4 mg Q6H PRN IV 11/20/17 17:15 12/20/17 17:14 11/21/17 22:31 4 MG Morphine Sulfate (MoRPHine SULFATE INJ) 2 mg Q2H PRN IV 11/21/17 08:00 12/05/17 07:59 11/24/17 12:12 2 MG Parenteral Electrolyte Solution 1,000 ml @ 100 mls/hr Q10H IV 11/21/17 09:15 12/21/17 09:14 11/24/17 08:01 100 MLS/HR Enteral Nutritional Formula (Boost) 1 can AC PO 11/22/17 06:45 12/22/17 06:44 11/24/17 10:14 1 CAN Heparin Sodium (Porcine) (Heparin 10 Unit/ ml 5 ml Flush) 5 ml PRN PRN FLUSH 11/22/17 04:45 12/22/17 04:44 Docusate Sodium (coLACE CAP) 100 mg BID PO 11/22/17 09:00 12/22/17 08:59 11/24/17 08:04 100 MG Famotidine (Pepcid Tab) 20 mg BID PO 11/23/17 09:00 12/23/17 08:59 11/24/17 08:04 20 MG Nicotine (Nicoderm Cq 14MG Patch) 1 patch QAM TD 11/23/17 09:00 12/23/17 08:59 11/24/17 08:04 1 PATCH Miscellaneous (Remove Nicoderm Patch) 1 ea HS N/A 11/23/17 21:00 12/23/17 20:59 11/23/17 20:39 1 EA Fentanyl (Duragesic Patch) 25 mcg Q72H TD 11/23/17 10:00 12/07/17 09:59 11/23/17 10:31 25 MCG Miscellaneous Information (Check Fentanyl Patch Placement) 1 ea QS N/A 11/23/17 16:00 12/23/17 15:59 11/24/17 08:03 1 EA Miscellaneous (Fentanyl Patch Remove & Waste) 1 ea Q72H N/A 11/23/17 09:59 12/23/17 09:58 11/23/17 09:59 1 EA Alteplase, Recombinant 10 mg/ Syringe 60 ml @ 0 mls/hr Q12@0600,1800 IPL 11/23/17 18:00 11/26/17 06:01 11/24/17 05:33 10 MLS/HR Dornase Judd 5 ml/ Syringe 30 ml @ 0 mls/hr Q12@0900,2100 IPL 11/23/17 21:00 11/26/17 09:01 11/24/17 09:09 25 MLS/HR Imipenem/ Cilastatin Sodium 500 mg/Dextrose 120 ml @ 100 mls/hr Q6H IV 11/24/17 10:00 11/28/17 11:59 I & O: 24-Hour Column 11/25/17 07:59 Output Total 75 ml Balance -75 ml Vital Signs: Date Time Temp Pulse Resp B/P (MAP) Pulse Ox O2 Delivery O2 Flow Rate FiO2 11/24/17 10:00 91 20 125/85 (98) 96 Nasal Cannula 2.0 11/24/17 08:00 Nasal Cannula 2.0 11/24/17 08:00 36.5 97 20 116/84 (95) 96 Nasal Cannula 2.0 11/24/17 05:00 85 115/77 (90) 95 Nasal Cannula 2.0 11/24/17 04:00 84 119/78 (92) 97 Nasal Cannula 2.0 11/24/17 04:00 97 Nasal Cannula 2.0 11/24/17 03:00 94 119/76 (90) 93 Nasal Cannula 2.0 11/24/17 02:00 98 111/81 (91) 95 Nasal Cannula 2.0 11/24/17 01:00 97 117/79 (92) 95 Nasal Cannula 2.0 11/24/17 00:00 98 20 110/90 (97) 95 Nasal Cannula 2.0 11/23/17 23:59 95 Nasal Cannula 2.0 11/23/17 23:00 92 133/92 (106) 96 11/23/17 22:00 90 113/77 (89) 98 11/23/17 20:00 97 Nasal Cannula 2.0 11/23/17 20:00 36.4 98 20 114/66 (82) 98 Nasal Cannula 2.0 11/23/17 18:00 92 18 113/78 (90) 98 Nasal Cannula 2.0 11/23/17 16:00 36.6 90 20 121/83 (96) 97 Nasal Cannula 2.0 11/23/17 16:00 97 Nasal Cannula 2.0 11/23/17 14:00 85 22 105/75 (85) 100 Nasal Cannula 2.0 Laboratory Results: Last 24 Hours Test 11/23/17 20:38 11/24/17 05:37 Bedside Glucose 133 mg/dl White Blood Count 13.74 K/uL Red Blood Count 2.77 M/uL Hemoglobin 8.2 g/dL Hematocrit 26.1 % Mean Corpuscular Volume 94.2 fL Mean Corpuscular Hemoglobin 29.6 pg Mean Corpuscular Hemoglobin Concent 31.4 g/dl Platelet Count 759 K/uL Mean Platelet Volume 8.5 fL Neutrophils (%) (Auto) 73.4 % Lymphocytes (%) (Auto) 16.8 % Monocytes (%) (Auto) 5.5 % Eosinophils (%) (Auto) 3.2 % Basophils (%) (Auto) 0.4 % Neutrophils # (Auto) 10.08 K/uL Lymphocytes # (Auto) 2.31 K/uL Monocytes # (Auto) 0.76 K/uL Eosinophils # (Auto) 0.44 K/uL Basophils # (Auto) 0.06 K/uL RDW Standard Deviation 50.6 fL RDW Coefficient of Variation 15.0 % Immature Granulocyte % (Auto) 0.7 % Immature Granulocyte # (Auto) 0.09 K/uL Stomatocytes 1+ Sodium Level 139 mmol/L Potassium Level 3.4 mmol/L Chloride Level 104 mmol/L Carbon Dioxide Level 29 mmol/L Anion Gap 6.0 mmol/L Blood Urea Nitrogen 18 mg/dl Creatinine 1.32 mg/dl Est Creatinine Clear Calc Drug Dose 71.6 ml/min Estimated GFR () 79.3 Estimated GFR (Non- 68.4 BUN/Creatinine Ratio 13.3 Random Glucose 96 mg/dl Calcium Level 7.9 mg/dl Total Bilirubin 0.5 mg/dl Direct Bilirubin 0.3 mg/dl Aspartate Amino Transf (AST/SGOT) 24 U/L Alanine Aminotransferase (ALT/SGPT) 24 U/L Alkaline Phosphatase 316 U/L Total Protein 6.6 gm/dl Albumin 1.4 gm/dl
[2017-11-24] MEDS: ONDANSETRON INJ 2 MG/ML 2 ML VIAL IV PRN (22:04)
[2017-11-25] MEDS: CHECK FENTANYL PATCH PLACEMENT SCH ×3 (00:15→15:34)
[2017-11-25] MEDS: MoRPHine SULFATE 2 MG/ML CARP IV PRN ×9 (00:16→23:13)
[2017-11-25] MEDS: ACETAMINOPHEN IV 1,000 MG in EMPTY BAG 0 ML IV SCH ×3 (03:01→17:48)
[2017-11-25] MEDS: IMIPENEM-CILASTATIN 500 MG in DEXTROSE 5% 100ML 100 ML IV SCH ×4 (03:25→21:44)
[2017-11-25] MEDS: NORMOSOL R 1,000 ML IV SCH ×2 (04:52→15:32)
--- NOTE | 2017-11-25 07:19 | DIAGNOSTIC IMAGING REPORT ---
CHEST ONE VIEW PORTABLE HISTORY: 37 years-old Male empyema acute shortness of breath COMPARISON: Chest radiograph 11/24/2017 TECHNIQUE: Portable AP view of the chest FINDINGS: Cardiac silhouette is mildly enlarged. Right-sided PICC is unchanged in positioning terminating in the expected region of the SVC. Right-sided chest tube is also unchanged. Minimal linear subsegmental atelectasis of the left lung base. Unchanged small right pleural effusion with patchy right midlung and right basilar opacities. No pneumothorax or overt pulmonary edema. Bones of the chest appear grossly intact. IMPRESSION: 1. Stable positioning of lines as above. 2. Small right pleural effusion with persistent right midlung and right basilar opacities. 3. Subsegmental left basilar atelectasis. The above report was generated using voice recognition software. It may contain grammatical, syntax or spelling errors. Electronically signed by: Tuan Kulkarni M.D. 11/25/2017 7:18 AM Dictated Date/Time: 11/25/2017 7:16 AM
[2017-11-25 07:44] VITALS: BP 115/73; PULSE 90; TEMP 36.6; O2SAT 94
[2017-11-25] MEDS: NICOTINE 14 MG/24 HR TDSY TD SCH (08:24)
[2017-11-25] MEDS: DOCUSATE SODIUM 100 MG CAP PO SCH ×2 (08:24→20:29)
[2017-11-25] MEDS: BOOST VANILLA PO SCH ×3 (08:25→17:48)
[2017-11-25] MEDS: FAMOTIDINE 20 MG TAB PO SCH ×2 (08:25→20:39)
[2017-11-25] MEDS: LINEZOLID / D5W 600 MG in PREMIXED IN D5W 300 ML IV SCH ×2 (08:26→20:28)
[2017-11-25] MEDS: HEPARIN SOD 5000 UNIT/0.5 ML CARP SQ SCH ×2 (08:36→20:39)
[2017-11-25] MEDS ORDERED: FENTANYL 25 MCG/HR TDSY TD SCH (09:00)
[2017-11-25] MEDS: ONDANSETRON INJ 2 MG/ML 2 ML VIAL IV PRN ×2 (09:09→17:46)
--- NOTE | 2017-11-25 10:13 | SURGERY PROGRESS NOTE ---
DATE: 11/25/2017 Jerry is sitting at the side of the bed in a chair, looking out the window. He is alert, coherent and in no distress. He said he feels a little bit nauseated. There is a tray in front of him, he is not eating much. His last vitals showed a temperature of 36.6, pulse 90, respirations 16, blood pressure 115/73, O2 sats 94 on room air. The patient said he had a few bowel movements and he is passing flatus. Chest tube drainage was 75 overnight. Chest x-ray today is pretty much unchanged with some right pleural effusion in the right mid lung and right basilar opacities. No lab was drawn today. At this point, we are to continue the present therapy. I will leave the Nelson drain, it is in the left lower quadrant towards the anastomosis, until the patient has full GI activity back. From my point of view, he is tolerating and seems to be turning the corner from his admission.
--- NOTE | 2017-11-25 10:39 | Surgery Progress Note ---
Subjective Date of Service: Nov 25, 2017. Pt. notes his breathing continues to improve. He notes pain is well controlled. No N/V at the present time. Objective Vitals Date Time Temp Pulse Resp B/P (MAP) Pulse Ox O2 Delivery O2 Flow Rate FiO2 11/25/17 07:44 36.6 90 16 115/73 (87) 94 Room Air 11/25/17 00:15 Room Air 11/24/17 23:25 36.6 90 17 152/89 (110) 93 Room Air 11/24/17 22:17 Room Air 11/24/17 16:51 36.4 94 18 137/93 (108) 95 Room Air 11/24/17 16:50 Room Air 11/24/17 14:00 89 20 128/86 (100) 95 Room Air 11/24/17 12:00 Room Air Physical Exam General: + well developed, + well nourished, No distress Pulmonary: + pertinent finding (decreased BS at bases but improved from time of admission), No accessory muscle use, No respiratory distress Neurologic: + alert & oriented x 3 Radiology CXR shows right pleura effusion that has improved on serial CXR Drains / Tubes pleurex (50 cc this am ) Assessment & Plan 37 year old male with right sided empyema -empyema improved, with a small amount of fluid remaining -MIST 2 protocol implemented and concluded on 11/24/17 -cultures reviewed and again no growth to date -continue abx. as ordered (primaxin & zyvoxx): -ID following -continue mgt. of abdominal issues as directed by general surgery (pt. with hx. of perfoated diverticulitis/Trujillo procedure with subsequrnt reversal and development of intra-abdominal abscess): -diet has kenneth advanced to low fat and 2 TERRA drains removed with 1 remaining -ambulate as able: PT & OT notes reviewed and it appears pt. may require rehab -nephrology input noted for LAZARO: -avoid hypotension and nephrotoxins -renal function improved since admission OTHER -sub-q heparin is in place for DVT prevention
[2017-11-25 15:49] VITALS: BP 145/96; PULSE 82; TEMP 36.5; O2SAT 95
[2017-11-25] MEDS ORDERED: NURSING VERBAL MED ORDER ONE ×2 (16:30→18:15)
[2017-11-25] MEDS ORDERED: LORAZEPAM 0.5 MG TAB PO PRN (18:30)
[2017-11-25 23:19] VITALS: BP 157/91; PULSE 71; TEMP 36.6; O2SAT 95
[2017-11-26] MEDS: CHECK FENTANYL PATCH PLACEMENT SCH ×4 (00:21→23:49)
[2017-11-26] MEDS: NORMOSOL R 1,000 ML IV SCH ×3 (01:21→20:13)
[2017-11-26] MEDS: ACETAMINOPHEN IV 1,000 MG in EMPTY BAG 0 ML IV SCH ×4 (01:22→17:31)
[2017-11-26] MEDS: MoRPHine SULFATE 2 MG/ML CARP IV PRN ×8 (01:29→23:43)
[2017-11-26] MEDS: IMIPENEM-CILASTATIN 500 MG in DEXTROSE 5% 100ML 100 ML IV SCH ×4 (03:55→21:28)
[2017-11-26 04:51] LABS: HEMATOCRIT 25.5 % (42-52); HEMOGLOBIN 8.1 g/dL (14.0-18.0); MEAN CELL VOLUME 93.4 fL (80-100); MEAN CORPUSCULAR HEMOGLOBIN 29.7 pg (25-34); MEAN CORPUSCULAR HGB CONC 31.8 g/dl (32-36); MEAN PLATELET VOLUME 8.2 fL (7.4-10.4); PLATELET COUNT 749 K/uL (130-400); RED CELL DISTRIBUTION WIDTH CV 14.7 % (11.5-14.5); RED CELL DISTRIBUTION WIDTH SD 49.1 fL (36.4-46.3); WHITE BLOOD COUNT 12.62 K/uL (4.8-10.8)
[2017-11-26 06:52] VITALS: BP 132/88; PULSE 73; TEMP 36.4; O2SAT 95
[2017-11-26] MEDS: BOOST VANILLA PO SCH ×3 (08:07→17:30)
[2017-11-26] MEDS: NICOTINE 14 MG/24 HR TDSY TD SCH (08:08)
[2017-11-26] MEDS: DOCUSATE SODIUM 100 MG CAP PO SCH ×2 (08:08→20:09)
[2017-11-26] MEDS: HEPARIN SOD 5000 UNIT/0.5 ML CARP SQ SCH ×2 (08:15→20:12)
[2017-11-26] MEDS: LINEZOLID / D5W 600 MG in PREMIXED IN D5W 300 ML IV SCH ×2 (08:15→19:34)
--- NOTE | 2017-11-26 09:23 | Surgery Progress Note ---
Subjective Date of Service: Nov 26, 2017. Pt. notes his breathing has continue to improve. He notes very little nausea. He is ambulating short distances. He note shaving a BM yesterday. Discussed with RN--pt. tolerating small amount of solid food. She notes his nausea seems to correlate with administration of morphine. He has been ambulating short distances. Objective Vitals Date Time Temp Pulse Resp B/P (MAP) Pulse Ox O2 Delivery O2 Flow Rate FiO2 11/26/17 06:52 36.4 73 16 132/88 (103) 95 Room Air 11/26/17 00:10 Room Air 11/25/17 23:19 36.6 71 16 157/91 (113) 95 Room Air 11/25/17 15:49 36.5 82 16 145/96 (112) 95 Room Air 11/25/17 15:15 Room Air Physical Exam General: + well developed, + well nourished, No distress CV: + RRR Pulmonary: + pertinent finding (BS are decreased at right bases, although BS are noted to be improved on serial exams), No accessory muscle use, No respiratory distress Abdomen: + tenderness (noted at incision ) Extremities: No calf tenderness Neurologic: + alert & oriented x 3 Drains / Tubes pleurex (65 cc drained this am) Assessment & Plan 37 year old male transferred to [facility] with right sided empyema (11/20/17) PULM -upon transfer pt. had pleurx catheter placed and fluid sent for analysis -pH was acidic confirming dx. of empyema -cultures sent and are all (-) -empyema likley sterile as pt. was receiving abx. prior to transfer -in addition to empyema, imaging showed presence of pneumonia -MIST 2 protocol implemented and concluded on 11/24/17 -serial imaging showed improvement of fluid -abx. have been in place ID -cultures from [facility] included: -peritonelal fluid which grew casie -would culture with VRE and multi-resistant E.coli -ID service has been following -abx. this admission include: -cefepime x 1 dose -flagyl x 2 doses -zyvoxx (day #7) -primaxin (day #6 today) -will await further recommendations from ID about transitioning to oral abx. as well as length CV -stable GI -pt. had perforated diverticulitis requiring Trujillo procedure -colostomy reversal performed, however pt. required abdominal re-exploration du e to concern for anastomotic leak and intra-abdominal sepsis (no obvious leak noted) -all surgeries performed at [facility] -since transfer to [facility], general surgery has been following: -bowel function has returned and diet has been advanced -2 TERRA drains have been removed with 1 remaining -discussed with general surgeon: -remains TERRA and retention sutures shouls remain in place and can be removed by general surgeon at [facility] upon follow-up RENAL -pt. noted to have LAZARO at time of transfer to [facility] -this has resolved -nephrology input noted: -continue to avoid nephrotoxins and hypotension OTHER -sub-q heparin is in place for DVT prevention -continue mobilization/ambulation as able: -PT & OT are assisting -discussed with pt. and family: -although rehab recommended, sister notes pt. would like to return home at time of d/c -they note he lives in a single story residence and feel they will have adequate family help
[2017-11-26] MEDS: FENTANYL PATCH REMOVE & WASTE SCH (09:50)
--- NOTE | 2017-11-26 09:50 | SURGERY PROGRESS NOTE ---
DATE: 11/26/2017 SUBJECTIVE: Jerry is resting comfortably, he actually looks a little bit stronger than he did yesterday. Yesterday he said that he had a good day. He is tolerating his diet better. OBJECTIVE: VITAL SIGNS: His last vitals showed a temperature of 36.4, pulse 73, respirations 16, blood pressure 132/88, O2 sats 95% on room air. He states he has moved his bowels, although there has not been recorded here by the nurses. Yesterday, he mobilized fluid of 1975, total urine. LABORATORY DATA: His white count is down to 12.62, hemoglobin 8.1, BUN is 18, creatinine continues to decrease to 1.32. IMPRESSION AND PLAN: His abdomen is softer. The retention sutures of 2 of the remaining were loose, therefore, we removed. The midline incision shows good granulation tissue. The Nelson drainage of the left lower quadrant, we will keep in had minimal drainage recorded. From my point of view, I suspect the patient will be able to be discharged in the next day or so and follow up with the surgeon there in [place]. CHAIM
[2017-11-26] MEDS: FENTANYL 25 MCG/HR TDSY TD SCH (09:51)
[2017-11-26] MEDS: ONDANSETRON INJ 2 MG/ML 2 ML VIAL IV PRN ×2 (10:52→19:12)
[2017-11-26] MEDS: FAMOTIDINE 20 MG TAB PO SCH ×2 (13:05→20:09)
[2017-11-26 14:58] VITALS: BP 148/91; PULSE 83; TEMP 36.7; O2SAT 97
[2017-11-26 23:09] VITALS: BP 147/88; PULSE 67; TEMP 36.7; O2SAT 93
[2017-11-27] MEDS: ACETAMINOPHEN IV 1,000 MG in EMPTY BAG 0 ML IV SCH (02:28)
[2017-11-27] MEDS: MoRPHine SULFATE 2 MG/ML CARP IV PRN ×2 (02:48→05:45)
[2017-11-27] MEDS: ONDANSETRON INJ 2 MG/ML 2 ML VIAL IV PRN (02:49)
[2017-11-27] MEDS: IMIPENEM-CILASTATIN 500 MG in DEXTROSE 5% 100ML 100 ML IV SCH (04:30)
[2017-11-27] MEDS: NORMOSOL R 1,000 ML IV SCH (05:49)
--- NOTE | 2017-11-27 07:10 | DIAGNOSTIC IMAGING REPORT ---
SINGLE VIEW CHEST CLINICAL HISTORY: Empyema. FINDINGS: An AP, portable, upright chest radiograph is compared to study dated 11/25/2017 and correlated with chest CT dated 11/23/2017. The examination is degraded by portable technique and patient rotation. A right PICC line is unchanged in position. The heart is top normal for projection. The pulmonary vasculature is noncongested. Emphysema and chronic interstitial thickening are similar to previous. A right-sided chest tube is unchanged in position. A right pleural effusion with right basilar consolidation has not significant change from yesterday. The left lung appears clear. No pneumothorax is seen. The skeletal structures are osteopenic. The bony thorax is grossly intact. IMPRESSION: 1. A right-sided chest tube is unchanged in position. No pneumothorax is seen. 2. A right pleural effusion with right basilar consolidation has not significantly changed from 11/25/2017. 3. Emphysema. Electronically signed by: Pilo Berry M.D. 11/27/2017 7:08 AM Dictated Date/Time: 11/27/2017 7:06 AM
[2017-11-27 07:15] VITALS: BP 155/99; PULSE 68; TEMP 36.6; O2SAT 93
[2017-11-27] MEDS: HEPARIN SOD 5000 UNIT/0.5 ML CARP SQ SCH (09:00)
[2017-11-27] MEDS: NICOTINE 14 MG/24 HR TDSY TD SCH (09:00)
[2017-11-27] MEDS: LINEZOLID / D5W 600 MG in PREMIXED IN D5W 300 ML IV SCH (09:01)
[2017-11-27] MEDS: CHECK FENTANYL PATCH PLACEMENT SCH (09:01)
[2017-11-27] MEDS: BOOST VANILLA PO SCH (09:01)
[2017-11-27] MEDS ORDERED: OXYC-57 PO (09:03)
[2017-11-27] MEDS: DOCUSATE SODIUM 100 MG CAP PO SCH (09:03)
[2017-11-27] MEDS: FAMOTIDINE 20 MG TAB PO SCH (09:03)
[2017-11-27] MEDS ORDERED: CIPR1TAB10 PO (09:05)
[2017-11-27] MEDS ORDERED: AMOX875T PO (09:05)
--- NOTE | 2017-11-27 09:20 | Discharge Instructions ---
Discharge Instructions Date of Service Nov 27, 2017. Admission Reason for Admission: Empyema (Open And Draining,+Vre&Esbl) Discharge Discharge Diagnosis / Problem: Empyema Discharge Goals Goal(s): Decrease discomfort, Improve function Activity Recommendations Activity Limitations: as noted below Lifting Limitations: no more than 10 pounds (until cleared by Dr. Noe, your general surgeon from [place] ) 1. Do not lift objects heavier than 10 pound until cleared to do so by Dr. Noe and Dr. Strong. 2. Do not drive if taking percocet. 3. Do not drive until cleared to do so by Dr. Noe and Dr. Strong. . Instructions / Follow-Up Instructions / Follow-Up 1. You may remove the dressing on your chest in 3 days. No tub baths. 2. Office appointment with Dr. Strong in 1-2 weeks. office will call with date and time of appointment. Go to hospital 1 hour before appointment to have a chest x-ray taken. 3. Call the office of Dr. Noe, your general surgeon at [facility] to arrange follow-up. 4. Empty your abdominal drain as needed and record the amounts. Your general surgeon will decide when it will be removed. Current Hospital Diet Patient's current hospital diet: Low Fat Diet Discharge Diet Recommended Diet: Regular Diet Pending Studies Studies pending at discharge: no Medical Emergencies . Who to Call and When: Medical Emergencies: If at any time you feel your situation is an emergency, please call 911 immediately. . Non-Emergent Contact Non-Emergency issues call your: Surgeon Call Non-Emergent contact if: you have a fever, your pain is not controlled, wound has increased drainage . "Provider Documentation" section prepared by James Castañeda. . [place] Drug Monitoring Program Search Results: patient reviewed within database, no issues identified
--- NOTE | 2017-11-27 09:23 | DIAGNOSTIC IMAGING REPORT ---
CHEST ONE VIEW PORTABLE CLINICAL HISTORY: tube removal tube position COMPARISON STUDY: 11/27/2017 6:49 AM FINDINGS: Interval removal of the right-sided drainage catheter. Unchanging pleural reactive change right base. No significant postprocedural pneumothorax. Central catheter remains in the superior vena cava. IMPRESSION: No pneumothorax post removal right basilar chest tube The above report was generated using voice recognition software. It may contain grammatical, syntax or spelling errors. Electronically signed by: Jovi Tucker M.D. 11/27/2017 9:22 AM Dictated Date/Time: 11/27/2017 9:21 AM
--- NOTE | 2017-11-27 09:49 | Surgery Progress Note ---
Surgery Progress Note Date of Service Nov 27, 2017. Subjective + feeling well, + bowel movement, + diet (tolerating) Objective Vital Signs: Date Time Temp Pulse Resp B/P (MAP) Pulse Ox O2 Delivery O2 Flow Rate FiO2 11/27/17 07:15 36.6 68 18 155/99 (117) 93 Room Air 11/26/17 23:40 Room Air 11/26/17 23:09 36.7 67 14 147/88 (107) 93 Room Air 11/26/17 16:15 Room Air 11/26/17 14:58 36.7 83 16 148/91 (110) 97 Room Air Physical Exam: Nelson drainage (5 cc) Assessment & Plan 1. right empyema 2. s/p colostomy takedown and re-exploration ok for discharge, will leave drain in, f/u with Dr. Noe for removal
[2017-11-27 10:27] VITALS: BP 155/99; PULSE 68; TEMP 36.6; O2SAT 93
--- NOTE | 2017-11-27 10:33 | Progress Note ---
Progress Note Date of Service Nov 27, 2017. Progress Note Pleurx removed without difficulty. Sterile dressing applied.
--- NOTE | 2017-11-27 20:32 | DISCHARGE SUMMARY ---
DISCHARGE DIAGNOSES: 1. Empyema, right pleural cavity. 2. History of intra-abdominal abscess status post exploration after takedown of colostomy. 3. Status post sigmoid resection for diverticular disease. 4. History of alcohol abuse. 5. History of cigarette smoking. HOSPITAL COURSE: Jerry Morrison is a 37-year-old male who developed diverticular disease to the point where he underwent an elective resection back in May by Dr. Harris Noe. Dr. Harris Noe is a general surgeon at [facility] in [place]. The patient had his sigmoid resection accompanied by a colostomy to protect the anastomotic area. This Pepe's procedure was then reversed back this past October. The patient was brought in and underwent an uncomplicated procedure. However, he developed an abscess and had to be taken back to the operating room. This was drained with multiple drains and he appeared to improve from a GI standpoint; however, he then developed a complex right pleural effusion. One week ago today on 11/20/2017, the patient was transferred to my service at the request of Dr. Noe for aid in draining this pleural effusion. I immediately placed a PleurX catheter and the patient only drained about 100 mL out; however, the pH was quite low at 7.09 and I suspect we were dealing with a sterile empyema. We began the MIST-2 protocol with TPA and Pulmozyme. This worked quite nicely. He drained quite a bit for the next 3 days and in fact we extended it for 1 more day after repeating a CT scan. The patient improved dramatically. He was off of oxygen. He is ambulating in the hallway. He is having normal bowel movements. He has been left with retention sutures and had a wound, which was left to close in secondary intention as this looked beautiful. Dr. Mike Cruz followed the patient from a general surgery standpoint and removed all but one of the [place]el[place]-Black drains. His wound had improved tremendously. He was tolerating a house diet and quite frankly I think it looked very good. He is quite eager to get home and I felt he could be discharged. I discussed this with Dr. Noe who will see him next week in the office. Discharge instructions were given including wound care. We will tentatively plan to see him back in the hospital in 2-3 weeks with a chest x-ray. In the meantime, he is to call if there are any problems. It is going to be much easier for him to follow up with Dr. Noe. We removed his PleurX catheter the day of his discharge. He really had not drained much and we had not grown any organisms out of the pleural fluid, but it certainly appeared to be an empyema. The pH was 454. The glucose is only 27 and his pH is only 7.09. All in all, I was quite happy with Mr. Morrison. I discussed this case multiple times with his sister who is a ATHLETIC COACH
== END 2017-11-27 11:04 | disposition home or self-care (01) | DRG 178 ==
LOC: C.MSICU 15:45 → UNDOADMIN 15:45 → C.MSICU 17:04 → ENRESERV 11-24 15:32 → C.MSN 11-24 16:19
PROVIDERS: ADMIT Surgery; ATTEND Surgery
PROC: 0B9N30Z Drainage of Right Pleura with Drainage Device, Percutaneous Approach (ICD-10-PCS; principal; 2017-11-20)
DX: J86.9 Pyothorax without fistula (principal); N17.9 Acute kidney failure, unspecified; E87.2 Acidosis; J90 Pleural effusion, not elsewhere classified; F10.10 Alcohol abuse, uncomplicated; D64.9 Anemia, unspecified

== ENCOUNTER → 2017-12-07 | Outpatient (CLI) | payer OTHER ==
[~2017-12-07] MED LIST changes: +AMOX875T PO; +CIPR1TAB10 PO; -LRT5 PO; -METH4PAK4 PO
--- NOTE | 2017-12-07 10:21 | DIAGNOSTIC IMAGING REPORT ---
CHEST 2 VIEWS ROUTINE CLINICAL HISTORY: 37 years-old Male presenting with J86.9 [id number], pneumonia, chest pain, shortness of breath. TECHNIQUE: PA and lateral views of the chest were obtained. COMPARISON: 11/27/2017. FINDINGS: Interval removal of the right upper extremity PICC. Cardiomediastinal silhouette normal. Persistent right basilar opacity with right pleural effusion. Additional adjacent bandlike opacity in the right midlung. Left lung and pleural space clear. Osseous structures normal. Upper abdomen normal. IMPRESSION: 1. Persistent right basilar consolidation and right pleural effusion. Adjacent scarring or atelectasis in the right midlung. Electronically signed by: Manfred Monet M.D. 12/07/2017 10:20 AM Dictated Date/Time: 12/07/2017 10:19 AM
== END | disposition home or self-care (01) ==
LOC: C.RAD 09:43
PROVIDERS: ATTEND Surgery
DX: J86.9 Pyothorax without fistula (principal); J90 Pleural effusion, not elsewhere classified

== ENCOUNTER 2021-09-27 14:55 | Observation (INO) ==
[2021-09-27 17:28] LABS: Basophils # (auto) 0.02 K/uL (0-0.2); Basophils % (auto) 0.2 %; Eosinophils # (auto) 0.65 K/uL (0-0.5); Eosinophils % (auto) 5.5 %; Hematocrit (blood only) 39.5 % (42-52); Hemoglobin 14.5 g/dL (14.0-18.0); Immature Granulocytes # (auto) 0.03 K/uL (0.00-0.02); Immature Granulocytes % (auto) 0.3 %; Lymphocytes # (auto) 2.59 K/uL (1.2-3.4); Lymphocytes % (auto) 21.7 %; Mean Corpuscular Hemoglobin 34.8 pg (25-34); Mean Corpuscular Hgb Conc 36.7 g/dL (32-36); Mean Corpuscular Volume 94.7 fL (80-100); Mean Platelet Volume 11.1 fL (7.4-10.4); Monocytes # (auto) 0.65 K/uL (0.11-0.59); Monocytes % (auto) 5.5 %; Neutrophils # (auto) 7.98 K/uL (1.4-6.5); Neutrophils % (auto) 66.8 %; Platelet Count 334 K/uL (130-400); RDW Standard Deviation 41.6 fL (36.4-46.3); Red Blood Count 4.17 M/uL (4.7-6.1); White Blood Count 11.92 K/uL (4.8-10.8)
[2021-09-27 17:29] LABS: Appearance Urine Clear (Clear); Bacteria Urine Automated Negative (Negative); Bilirubin Urine Negative (Negative); Blood Urine Trace (Negative); Cast Urine Automated 0 /lpf (0-5); Color Urine Yellow; Epithelial Cell Urine Auto 0-5 /lpf (0-5); Glucose Urine UA 3+ (Negative); Ketones Urine Trace (Negative); Leukocyte Esterase Urine Negative (Negative); Nitrite Urine Negative (Negative); Protein Urine Negative (Negative); RBC Urine Automated 0-4 /hpf (0-4); Specific Gravity Urine 1.035 (1.000-1.030); Urobilinogen Urine Negative (Negative); WBC Urine Automated 0 /hpf (0-5)
[2021-09-27 18:47] LABS: Alanine Aminotransferase 91 (12-78); Albumin Globulin Ratio 0.9 (0.9-2); Alkaline Phosphatase 116 U/L (45-117); BUN Creatinine Ratio 20.5 (10-20); Bilirubin,Total 0.8 mg/dl (0.2-1); Blood Urea Nitrogen 26 mg/dl (7-18); Calcium 9.5 mg/dl (8.5-10.1); Carbon Dioxide 23 mmol/L (21-32); Chloride 92 mmol/L (98-107); Creatinine Clr Calc Pharmacy 82.4 ml/min; Est GFR (Non-African American) 69.1 ml/min; Globulin 4.3 gm/dl (2.5-4.0); Sodium 126 mmol/L (136-145); Total Protein 8.3 gm/dl (6.4-8.2)
[2021-09-27 18:52] LABS: Glucose 600 mg/dl (70-99)
[2021-09-27 18:58] LABS: Potassium 4.7 mmol/L (3.5-5.1)
[2021-09-27 19:04] LABS: Troponin I < 0.015 ng/ml (0-0.045)
[2021-09-27] MEDS ORDERED: OPTIRAY 320 100ml IV ONE (19:24)
--- NOTE | 2021-09-27 19:50 | CT Scan Report ---
CT abd pelvis IV con only CLINICAL HISTORY: Abdominal pain. History of previous diverticulitis. COMPARISON STUDY: 11/23/2017 CT DOSE: 548.48 mGy.cm TECHNIQUE: Standard CT of the Abdomen and Pelvis was performed with IV contrast. A dose lowering connie hnique was utilized adhering to the principles of ALARA. Contrast Volume: Omnipaque 320, 94 ml. The patient did not receive oral contrast. FINDINGS: Lung base: The lung bases are clear. Abdominal cavity: There is no evidence for abdominal mass, adenopathy or ascites. There is diastases of the anterior abdominal wall muscles again seen with bulging of bowel loops. Surgical clips are pre sent. Liver: There is homogeneous attenuation of the liver parenchyma. There is no evidence for enhancing m ass lesion. Spleen: There is homogeneous attenuation of the splenic parenchyma. There is no enhancing mass lesion . Pancreas: There is homogeneous attenuation of the pancreatic parenchyma. There is no evidence for mas s lesion or peripancreatic fluid collection. Gall Bladder: The gallbladder is well distended with no evidence for intraluminal calculi, wall thick ening or pericholecystic edema. Adrenal glands: The adrenal glands are normal in size and attenuation. There is no evidence for enhan cing mass lesion. Kidneys: There is homogeneous attenuation of the renal parenchyma bilaterally. There is no evidence f or renal calculus or hydronephrosis. There is no evidence for enhancing mass. Bowel: The bowel loops are normally placed within the abdomen and pelvis without evidence for dilatat ion or obstruction. However, there are fluid-filled loops of small bowel seen within the mid to lower abdomen on the left. These findings suggest localized ileus versus gastroenteritis. There is mild si gmoid diverticulosis without evidence for diverticulitis. There are no inflammatory changes present. There is no evidence for free air. The appendix is not visualized. Bladder: The bladder is within normal limits with no evidence for focal mass, calculus or diverticulu m. However, there is mild diffuse thickening of the bladder wall which can be seen with cystitis. : There is no evidence for pelvic mass or adenopathy. There is no evidence for pelvic ascites. The patient is status post previous hysterectomy. Vasculature: There is no evidence for aneurysmal dilatation of the abdominal aorta. Osseous structures: There is no acute osseous pathology. IMPRESSION: 1. Evidence for mild ileus versus gastroenteritis. No bowel loop dilatation or obstruction. 2. Mild diverticulosis without evidence for recurrent diverticulitis. 3. Mild diffuse thickening of the bladder wall which can be seen with cystitis. 4. Additional nonacute findings are delineated above. ACT 112: Negative or not required by law. Electronically signed by: Colby Cohen M.D. 09/27/2021 7:48 PM
[2021-09-27] MEDS ORDERED: NovoLIN-R INSULIN PER UNIT CHARGE IV STA (20:22)
[2021-09-27] MEDS ORDERED: SOD PHOSPHATE/SOD BIPHOSPHATE ENEMA 132 ML BTL PR STA (20:22)
[2021-09-27] MEDS ORDERED: SODIUM CHLORIDE 0.9% 1000ML 2,000 ML IV ONE (20:22)
--- NOTE | 2021-09-27 20:30 | Emergency Department Note ---
Impression & Plan Acute hyperglycemia, Constipation, Ileus ED Provider Note NAME: MITCHEL RICE AGE: 41 SEX: M : 1980 ARRIVES VIA: Walk-In INFORMANT: Patient ED PROVIDER(S): Ubaldo Lewis DO CHIEF COMPLAINT: abdominal pain HPI: Patient is a 41-year-old male who presents to the ER with previous history of diverticulitis with 2 previous abdominal surgeries for diffuse abdominal pain and rectal pain. He has not had a bowel movement for 3 days. He denies any headache or change in vision. No chest pain or shortness of breath. He does have nausea but no vomiting. No dysuria, urgency, or frequency. No other exacerbating or remitting factors. Pain is a 10 out of 10 and focal in the rectum. ROS: See above HPI for pertinent positives & negatives. A total of 10 systems reviewed and were otherwise negative. PAST MEDICAL HISTORY:See Below PAST SURGICAL HISTORY:See Below FAMILY HISTORY:See Below SOCIAL HISTORY:See Below HOME MEDICATIONS:See Below ALLERGIES:See Below VITALS:See Below PHYSICAL EXAMINATION: GENERAL: Sitting up in bed, alert, well appearing, well nourished, no distress, non-toxic EYE EXAM: normal conjunctiva. PERRL and EOM's grossly intact. OROPHARYNX: no exudate, no erythema, lips, buccal mucosa, and tongue normal and mucous membranes are moist NECK: supple, no nuchal rigidity, no adenopathy, non-tender LUNGS: Clear to auscultation. Normal chest wall mechanics HEART: no murmurs, S1 normal and S2 normal ABDOMEN: abdomen soft, mild diffuse tenderness with old incisions, normo-active bowel sounds, no masses, no rebound or guarding. UPPER EXTREMITIES: upper extremities are grossly normal. LOWER EXTREMITIES: No pitting edema. NEURO EXAM: Normal sensorium, cranial nerves II-XII grossly intact, normal speech, no gross weakness of arms, no gross weakness of legs. MEDICAL DECISION MAKING: Patient is a 41-year-old male who presents the ER for abdominal pain. IV was established blood work was obtained. Labs show mild leukocytosis at 12,000. No significant anemia. BMP with mild hyponatremia 126. Small gap at 13. CO2 was 23. BSG was 600. UA with trace ketones but no signs of infection. Covid was negative. CT abdomen pelvis shows an ileus. Patient was given 2 L of IV fluids as well as 10 units of insulin. This trended down to 80. He was updated bedside. Discussed with hospitalist admitted for further work-up. Triage Nursing notes reviewed. Limited review of prior medical records performed Vital Signs: reviewed and remarkable for no significant abnormalities Differential diagnosis: Differential diagnoses includes but is not limited to gastritis, peptic ulcer disease, GERD, gallbladder disease, pancreatitis, small bowel obstruction, acute coronary syndrome, pericarditis, ischemic bowel, irritable bowel disease, irritable bowel syndrome, appendicitis, diverticulitis, malignancy, hernia, urinary tract infection, torsion, perforation, trauma, infectious. ER treatment provided: See below Diagnostics interpreted by me: ECG: none Cardiac Monitoring: An order was placed for continuous cardiac monitoring. The monitor shows a rate of 82 with sinus rhythm. Laboratory studies: As stated above and show below. Imaging studies: CT abdomen pelvis shows ileus Consultation(s): Discussed with Suri Zavala for further evaluation Procedures: none Critical Care: None Past Med/Surg History Social History Smoking Status: Current every day smoker Tobacco Type: Cigarettes Feels Safe at Home: Yes Allergies Allergies Allergy/AdvReac Type Severity Reaction Status Date / Time No Known Allergies Allergy Mild Unverified 09/27/21 21:15 Home Meds Home Medications Medication Instructions Recorded Confirmed Magnesium Hydroxide 8% 30 ml PO DAILY PRN 09/27/21 09/27/21 chlorpromazine 100 mg tablet 100 mg PO TID 09/27/21 09/27/21 diphenhydramine HCl 50 mg capsule 50 mg PO Q6 PRN 09/27/21 09/27/21 hydroxyzine pamoate 50 mg capsule 50 mg PO Q6 PRN 09/27/21 09/27/21 ibuprofen 600 mg tablet 600 mg PO TID PRN 09/27/21 09/27/21 lorazepam 1 mg tablet 1 mg PO Q6 PRN 09/27/21 09/27/21 melatonin 3 mg tablet 9 mg PO HS PRN 09/27/21 09/27/21 ondansetron 4 mg disintegrating 4 mg PO Q6H PRN 09/27/21 09/27/21 tablet Results & Data (ED) Vital Signs Vital Signs - 24 hr 09/27/21 15:36 09/27/21 19:59 09/27/21 20:06 Temperature 36.7 C Temperature Source Skin Pulse Rate 108 H Pulse Rate [Finger] 82 88 Pulse Rhythm Regular Pulse Rhythm [Finger] Regular Pulse Strength Normal Pulse Strength [Finger] Normal Respiratory Rate 20 18 Respiratory Effort / Characteristics Non-Labored Spontaneous Non-Labored Spontaneous Non-Labored Spontaneous Respiratory Depth Normal Normal Respiratory Pattern Regular Blood Pressure 112/74 Blood Pressure [Right Arm] 139/83 124/84 Blood Pressure Mean 86 Blood Pressure Mean [Right Arm] 101 97 Blood Pressure Position [Right Arm] Lying Pulse Oximetry 96 97 96 Oxygen Delivery Method Room Air Room Air Room Air Sepsis Recent Fever Within 48 Hours No Sepsis New/Unexplained Change in Mental Status N/A Sepsis Action Taken by Nursing No Action Required 09/27/21 21:23 09/27/21 22:15 09/27/21 23:00 Temperature Temperature Source Pulse Rate 81 Pulse Rate [Finger] 92 H 82 Pulse Rhythm Pulse Rhythm [Finger] Regular Regular Pulse Strength Pulse Strength [Finger] Normal Normal Respiratory Rate 18 18 17 Respiratory Effort / Characteristics Non-Labored Spontaneous Non-Labored Spontaneous Respiratory Depth Normal Normal Respiratory Pattern Regular Blood Pressure 111/79 Blood Pressure [Right Arm] 139/99 118/85 Blood Pressure Mean 89 Blood Pressure Mean [Right Arm] 112 96 Blood Pressure Position [Right Arm] Lying Lying Pulse Oximetry 96 95 95 Oxygen Delivery Method Room Air Room Air Sepsis Recent Fever Within 48 Hours Sepsis New/Unexplained Change in Mental Status Sepsis Action Taken by Nursing Laboratory Data Result diagrams: 09/27/21 17:16 09/27/21 17:16 Lab Results 09/27/21 09/27/21 09/27/21 Range/Units 17:16 17:16 20:51 WBC 11.92 H (4.8-10.8) K/uL RBC 4.17 L (4.7-6.1) M/uL Hgb 14.5 (14.0-18.0) g/dL Hct 39.5 L (42-52) % MCV 94.7 (80-100) fL MCH 34.8 H (25-34) pg MCHC 36.7 H (32-36) g/dL RDW Std Deviation 41.6 (36.4-46.3) fL RDW Coeff of Walter 12.0 (11.5-14.5) % Plt Count 334 (130-400) K/uL MPV 11.1 H (7.4-10.4) fL Immature Gran % (Auto) 0.3 % Neut % (Auto) 66.8 % Lymph % (Auto) 21.7 % Carson % (Auto) 5.5 % Eos % (Auto) 5.5 % Baso % (Auto) 0.2 % Neut # (Auto) 7.98 H (1.4-6.5) K/uL Lymph # (Auto) 2.59 (1.2-3.4) K/uL Carson # (Auto) 0.65 H (0.11-0.59) K/uL Eos # (Auto) 0.65 H (0-0.5) K/uL Baso # (Auto) 0.02 (0-0.2) K/uL Immature Gran # (Auto) 0.03 H (0.00-0.02) K/uL Sodium 126 L (136-145) mmol/L Potassium 4.7 (3.5-5.1) mmol/L Chloride 92 L (98-107) mmol/L Carbon Dioxide 23 (21-32) mmol/L Anion Gap 13.0 H (3-11) BUN 26 H (7-18) mg/dl Creatinine 1.28 (0.6-1.4) mg/dl Est Cr Clr Drug Dosing 82.4 ml/min Est GFR ( Amer) 80.0 ml/min Est GFR (Non-Af Amer) 69.1 ml/min BUN/Creatinine Ratio 20.5 H (10-20) Glucose 600 H* (70-99) mg/dl POC Glucose (70-99) mg/dl Calcium 9.5 (8.5-10.1) mg/dl Total Bilirubin 0.8 (0.2-1) mg/dl AST TNP ALT 91 H (12-78) Alkaline Phosphatase 116 (45-117) U/L Troponin I < 0.015 (0-0.045) ng/ml Total Protein 8.3 H (6.4-8.2) gm/dl Albumin 4.0 (3.4-5.0) gm/dl Globulin 4.3 H (2.5-4.0) gm/dl Albumin/Globulin Ratio 0.9 (0.9-2) Beta-Hydroxybutyric Acd TNP Specimen Hemolysis Urine Color Urine Appearance (Clear) Urine pH (4.5-7.5) Ur Specific Davy (1.000-1.030) Urine Protein (Negative) Urine Glucose (UA) (Negative) Urine Ketones (Negative) Urine Blood (Negative) Urine Nitrite (Negative) Urine Bilirubin (Negative) Urine Urobilinogen (Negative) Ur Leukocyte Esterase (Negative) Urine WBC (Auto) (0-5) /hpf Urine RBC (Auto) (0-4) /hpf U Hyaline Cast (Auto) (0-5) /lpf U Epithel Cells (Auto) (0-5) /lpf Urine Bacteria (Auto) (Negative) SARS-CoV-2, RNA, NAAT NEGATIVE (NEGATIVE) 09/27/21 09/27/21 Range/Units 22:27 Unknown WBC (4.8-10.8) K/uL RBC (4.7-6.1) M/uL Hgb (14.0-18.0) g/dL Hct (42-52) % MCV (80-100) fL MCH (25-34) pg MCHC (32-36) g/dL RDW Std Deviation (36.4-46.3) fL RDW Coeff of Walter (11.5-14.5) % Plt Count (130-400) K/uL MPV (7.4-10.4) fL Immature Gran % (Auto) % Neut % (Auto) % Lymph % (Auto) % Carson % (Auto) % Eos % (Auto) % Baso % (Auto) % Neut # (Auto) (1.4-6.5) K/uL Lymph # (Auto) (1.2-3.4) K/uL Carson # (Auto) (0.11-0.59) K/uL Eos # (Auto) (0-0.5) K/uL Baso # (Auto) (0-0.2) K/uL Immature Gran # (Auto) (0.00-0.02) K/uL Sodium (136-145) mmol/L Potassium (3.5-5.1) mmol/L Chloride (98-107) mmol/L Carbon Dioxide (21-32) mmol/L Anion Gap (3-11) BUN (7-18) mg/dl Creatinine (0.6-1.4) mg/dl Est Cr Clr Drug Dosing ml/min Est GFR ( Amer) ml/min Est GFR (Non-Af Amer) ml/min BUN/Creatinine Ratio (10-20) Glucose (70-99) mg/dl POC Glucose 285 H (70-99) mg/dl Calcium (8.5-10.1) mg/dl Total Bilirubin (0.2-1) mg/dl AST ALT (12-78) Alkaline Phosphatase (45-117) U/L Troponin I (0-0.045) ng/ml Total Protein (6.4-8.2) gm/dl Albumin (3.4-5.0) gm/dl Globulin (2.5-4.0) gm/dl Albumin/Globulin Ratio (0.9-2) Beta-Hydroxybutyric Acd Specimen Hemolysis Urine Color Yellow Urine Appearance Clear (Clear) Urine pH 7.0 (4.5-7.5) Ur Specific Davy 1.035 H (1.000-1.030) Urine Protein Negative (Negative) Urine Glucose (UA) 3+ H (Negative) Urine Ketones Trace H (Negative) Urine Blood Trace H (Negative) Urine Nitrite Negative (Negative) Urine Bilirubin Negative (Negative) Urine Urobilinogen Negative (Negative) Ur Leukocyte Esterase Negative (Negative) Urine WBC (Auto) 0 (0-5) /hpf Urine RBC (Auto) 0-4 (0-4) /hpf U Hyaline Cast (Auto) 0 (0-5) /lpf U Epithel Cells (Auto) 0-5 (0-5) /lpf Urine Bacteria (Auto) Negative (Negative) SARS-CoV-2, RNA, NAAT (NEGATIVE) Administered Medications Discontinued Medications Chlorpromazine HCl (Chlorpromazine Hcl 100 Mg Tab) 100 mg PO NOW STA Stop: 09/27/21 21:39 Last Admin: 09/27/21 22:17 Dose: 100 mg Documented by: [id number] Sodium Chloride (Nss 1000ml) 2,000 mls @ 999 mls/hr IV .Q2H1M ONE Stop: 09/27/21 22:22 Last Infusion: 09/27/21 22:16 Dose: 0 mls/hr Documented by: [id number] Admin: 09/27/21 21:21 Dose: 999 mls/hr Documented by: [id number] Insulin Human Regular (Novolin-R Insulin Per Unit Charge) 10 units IV NOW STA Stop: 09/27/21 20:23 Last Admin: 09/27/21 21:19 Dose: 10 units Documented by: [id number] Cosigned by: [id number] Ioversol (Optiray 320 100ml) 94 ml IV ONCE ONE Stop: 09/27/21 19:25 Last Admin: 09/27/21 19:25 Dose: 94 ml Documented by: [id number] Morphine Sulfate (Morphine Sulfate 4 Mg/Ml 1 Ml Carp\Vial) 4 mg IV NOW STA Stop: 09/27/21 20:40 Last Admin: 09/27/21 21:20 Dose: 4 mg Documented by: [id number] Sodium Biphosphate/Sodium Phosphate (Sod Phosphate/Sod Biphosphate Enema 132 Ml Btl) 132 ml AL NOW STA Stop: 09/27/21 20:23 Last Admin: 09/27/21 22:17 Dose: Not Given Documented by: [id number] Imaging Data Radiologist's Impression: Abdomen/Pelvis CT 09/27/21 18:03 CT abd pelvis IV con only CLINICAL HISTORY: Abdominal pain. History of previous diverticulitis. COMPARISON STUDY: 11/23/2017 CT DOSE: 548.48 mGy.cm TECHNIQUE: Standard CT of the Abdomen and Pelvis was performed with IV contrast. A dose lowering technique was utilized adhering to the principles of ALARA. Contrast Volume: Omnipaque 320, 94 ml. The patient did not receive oral contrast. FINDINGS: Lung base: The lung bases are clear. Abdominal cavity: There is no evidence for abdominal mass, adenopathy or ascites. There is diastases of the anterior abdominal wall muscles again seen with bulging of bowel loops. Surgical clips are present. Liver: There is homogeneous attenuation of the liver parenchyma. There is no evidence for enhancing mass lesion. Spleen: There is homogeneous attenuation of the splenic parenchyma. There is no enhancing mass lesion. Pancreas: There is homogeneous attenuation of the pancreatic parenchyma. There is no evidence for mass lesion or peripancreatic fluid collection. Gall Bladder: The gallbladder is well distended with no evidence for intraluminal calculi, wall thickening or pericholecystic edema. Adrenal glands: The adrenal glands are normal in size and attenuation. There is no evidence for enhancing mass lesion. Kidneys: There is homogeneous attenuation of the renal parenchyma bilaterally. There is no evidence for renal calculus or hydronephrosis. There is no evidence for enhancing mass. Bowel: The bowel loops are normally placed within the abdomen and pelvis without evidence for dilatation or obstruction. However, there are fluid-filled loops of small bowel seen within the mid to lower abdomen on the left. These findings suggest localized ileus versus gastroenteritis. There is mild sigmoid diverticulosis without evidence for diverticulitis. There are no inflammatory c hanges present. There is no evidence for free air. The appendix is not visualized. Bladder: The bladder is within normal limits with no evidence for focal mass, calculus or diverticulum. However, there is mild diffuse thickening of the bladder wall which can be seen with cystitis. : There is no evidence for pelvic mass or adenopathy. There is no evidence for pelvic ascites. The patient is status post previous hysterectomy. Vasculature: There is no evidence for aneurysmal dilatation of the abdominal aorta. Osseous structures: There is no acute osseous pathology. IMPRESSION: 1. Evidence for mild ileus versus gastroenteritis. No bowel loop dilatation or obstruction. 2. Mild diverticulosis without evidence for recurrent diverticulitis. 3. Mild diffuse thickening of the bladder wall which can be seen with cystitis. 4. Additional nonacute findings are delineated above. ACT 112: Negative or not required by law. Electronically signed by: Colby Cohen M.D. 09/27/2021 7:48 PM Discharge Plan Visit Data Chief Complaint: Hyperglycemia Stated Complaint: HIGH BLOOD SUGAR ED Provider: Ubaldo Lewis Discharge Problem: Acute hyperglycemia, Constipation, Ileus Forms Stand Alone Forms: [employer] [facility] Prescriptions Prescriptions: No Action diphenhydramine HCl 50 mg Capsule 50 mg PO Q6 PRN (Reason: EPS) RF: 0 chlorpromazine 100 mg Tablet 100 mg PO TID RF: 0 hydroxyzine pamoate 50 mg Capsule 50 mg PO Q6 PRN (Reason: Anxiety) RF: 0 melatonin 3 mg Tablet 9 mg PO HS PRN (Reason: Sleep) RF: 0 lorazepam 1 mg Tablet 1 mg PO Q6 PRN (Reason: ALCOHOL WITHDRAWL) RF: 0 ibuprofen 600 mg Tablet 600 mg PO TID PRN (Reason: Pain) RF: 0 ondansetron 4 mg Tablet,Disintegrating 4 mg PO Q6H PRN (Reason: Nausea) RF: 0 Magnesium Hydroxide 8% 30 ml PO DAILY PRN (Reason: Constipation) RF: 0 Referrals Referrals: PCP,NO [Primary Care Provider] - Discharge Problem: Constipation Qualifiers: Constipation type: unspecified constipation type Qualified Code(s): K59.00 - Constipation, unspecified
[2021-09-27] MEDS ORDERED: MoRPHine SULFATE 4 MG/ML 1 ML CARP\\VIAL IV STA (20:39)
--- NOTE | 2021-09-27 21:39 | History & Physical Report ---
Date of Service September 27, 2021 Assessment & Plan (1) Diabetes: Plan: 41yo male presenting with one day of blurry vision, difficulty focusing vision as well as abdominal discomfort, polyuria and polydipsia. Found to be hyperglycemic with BSG of 600, mild anion gap metabolic acidosis with Gap=13, serum HCO3 within normal range at 23. Patient is mentating well. He has no prior diagnosis of diabetes but recalls being told that his blood sugar was high possibly 2 years ago. Patient was also recently started on Thorazine which can be associated with worsened hyperglycemia through impairment of glucose metabolism. He has received 10u of IV insulin as well as 2L of crystalloid NSS resuscitation. Repeat blood sugar improved to 285. VBG with normal pH of 7.4 after IV insulin and NSS. Dx=603, corrects to 138 for hyperglycemia UA grossly negative for protein -Admit to medical with telemetry -Repeat BMP pending - assess anion gap -Check Hgb A1C -Check serum Osm -Check Lipase -Check Lipid panel -Will initiate Lantus 9u BID (0.2u/kg) and ISS -Check BSG q hourly until stable and improved -Diabetes education consultation appreciated -Patient will need to establish with a PCP for ongoing followup (2) Ileus: Plan: Patient with LLQ abdominal discomfort. He reports constipation as well. CT with possible focal ileus. Patient with history significant for multiple bowel surgeries. -IVF - LR at 200mL/hr x 2 liters -Bowel regimen as needed - colace and Miralax -KUB in AM to evaluate for obstruction -Pain control with Morphine PRN -Zofran PRN nausea (3) Depression: Plan: Patient reports history of depression only. He states he is at [facility] presently for medication adjustments. He denies SI/HI, denies VH/AH. He was started on Thorazine 100mg po TID appx 1 week ago. Patient states he is doing well on this medication and feels that his mood is improved. Uncertain what other psychiatric diagnoses he has to warrant treatment with Thorazine? Patient states he has not been on any psychiatric medications prior to Thorazine. -Continue Thorazine 100mg po TID. Some concern of worsening blood sugars. -Psychiatry consultation appreciated re: medication management Plan: F/E/N - LR at 200mL/hr x 2 liters, monitor electrolytes BMP q 4 hours, NPO for now. Nicotine patch - patient smokes appx 1ppd Ppx - SCDs, ambulation Code - Full code per discussion with patient Dispo - Admission to medical with telemetry History of Present Illness Chief Complaint: abdominal pain, blurry vision Primary Care Provider: NO PCP Jerry Morrison is a 41yo male presenting with new DM, hyperglycemia with BSG > 600. He has a history of diverticulitis s/p sigmoid resection with Pepe's pouch and colostomy placement in 2018 complicated by abscess formation s/p drainage and reversal of colostomy. History of empyema s/p PleurX catheter placement with TPA and Pulmozyme. Patient with history of alcoholism s/p rehabilitation - has been sober x 2 months. [facility] and was started on Thorazine appx 1 week ago. He carries a diagnosis of MDD with aggressive behavior. Patient developed blurry vision and difficulty focusing his vision yesterday. He reports polyuria and polydipsia and dry mouth. He also has LLQ abdominal pain, constipation and rectal pain. He had a small hard bowel movement this afternoon after straining for appx 40 minutes with sharp rectal discomfort following. Patient's blood sugar was checked at [facility] today and read "HI" so he was referred to the ER. In the ER he was found to have elevated blood sugar of 600. He was administered 10u IV insulin and 2L NSS with repeat blood sugar of 285. Patient has no previous diagnosis of DM. He does recall appx 3 years ago while in rehab for EtOH abuse that he had high blood sugars - possibly in the 200's to 300's. He does not follow routinely with a PCP. Patient endorses abdominal pain as above, LLQ also with nausea. No vomiting, no diarrhea. He has some mild chest discomfort but otherwise denies cough, SOB, palpitations, fever, chills. No additional complaints at this time. He denies auditory or visual hallucinations. Denies SI or HI. ER Course: Morphine mg IV, Insulin regular 10u IV, NSS x 2L, Chlorpromazine 100mg po Lantus 9u x 1 Allergies Allergy/AdvReac Type Severity Reaction Status Date / Time No Known Allergies Allergy Mild Unverified 09/27/21 21:15 Home Medications Medication Instructions Recorded Confirmed Type Magnesium Hydroxide 8% 30 ml PO DAILY PRN 09/27/21 09/27/21 History chlorpromazine 100 mg tablet 100 mg PO TID 09/27/21 09/27/21 History diphenhydramine HCl 50 mg capsule 50 mg PO Q6 PRN 09/27/21 09/27/21 History hydroxyzine pamoate 50 mg capsule 50 mg PO Q6 PRN 09/27/21 09/27/21 History ibuprofen 600 mg tablet 600 mg PO TID PRN 09/27/21 09/27/21 History lorazepam 1 mg tablet 1 mg PO Q6 PRN 09/27/21 09/27/21 History melatonin 3 mg tablet 9 mg PO HS PRN 09/27/21 09/27/21 History ondansetron 4 mg disintegrating 4 mg PO Q6H PRN 09/27/21 09/27/21 History tablet Past Med/Surg History Medical History (Updated 09/28/21 @ 00:23 by Nohemi Zavala DO) Alcohol abuse in remission Depression Diabetes Surgical History (Updated 09/28/21 @ 00:24 by Nohemi Zavala DO) History of chest tube placement History of colostomy History of colostomy reversal Family History (Updated 09/28/21 @ 00:24 by Nohemi Zavala DO) Other No significant family history Social History Smoking Status: Current every day smoker Tobacco Type: Cigarettes Feels Safe at Home: Yes Review of Systems Review of Systems: All systems reviewed & are unremarkable except as noted in HPI & below Physical Exam Physical Exam: General: patient resting in mild abdominal discomfort, NAD, non-toxic in appearance, AA&O x 4 Skin: warm, dry, intact, no rashes or lesions, multiple tattoos HEENT: NC/AT, PERRL, EOMI, anicteric sclera, conjunctiva without injection, external ear normal to inspection and nontender, nares patent, dry mucus membranes, edentulous, no oropharyngeal lesions, neck supple, trachea midline, no LAD, no thyromegaly, no JVD Heart: +S1/S2, regular, no m/r/g Lungs: equal air entry bilaterally, no rales/rhonchi/wheezes Abd: +BS, soft, laparotomy scars, tenderness in LLQ with voluntary guarding, no rebound Ext: warm, 2+ pulses in UE/LE bilaterally, no clubbing/cyanosis or edema Neuro: nonfocal, patient AA&O x 4, speech intact, no facial droop, moving all ex tremities on command with equal strength 5/5 Results & Data Results & Data ([facility]) Vital Signs (Past 12 Hours) Vital Signs Temp Pulse Pulse Resp BP BP Pulse Ox 09/27/21 21:23 92 H 18 139/99 96 09/27/21 20:06 88 18 124/84 96 09/27/21 19:59 82 139/83 97 09/27/21 15:36 36.7 C 108 H 20 112/74 96 Laboratory Results Laboratory Results WBC 11.92 K/uL (4.8-10.8) H 09/27/21 17:16 RBC 4.17 M/uL (4.7-6.1) L 09/27/21 17:16 Hgb 14.5 g/dL (14.0-18.0) 09/27/21 17:16 Hct 39.5 % (42-52) L 09/27/21 17:16 MCV 94.7 fL (80-100) 09/27/21 17:16 MCH 34.8 pg (25-34) H 09/27/21 17:16 MCHC 36.7 g/dL (32-36) H 09/27/21 17:16 RDW Std Deviation 41.6 fL (36.4-46.3) 09/27/21 17:16 RDW Coeff of Walter 12.0 % (11.5-14.5) 09/27/21 17:16 Plt Count 334 K/uL (130-400) 09/27/21 17:16 MPV 11.1 fL (7.4-10.4) H 09/27/21 17:16 Immature Gran % (Auto) 0.3 % 09/27/21 17:16 Neut % (Auto) 66.8 % 09/27/21 17:16 Lymph % (Auto) 21.7 % 09/27/21 17:16 [place] % (Auto) 5.5 % 09/27/21 17:16 Eos % (Auto) 5.5 % 09/27/21 17:16 Baso % (Auto) 0.2 % 09/27/21 17:16 Neut # (Auto) 7.98 K/uL (1.4-6.5) H 09/27/21 17:16 Lymph # (Auto) 2.59 K/uL (1.2-3.4) 09/27/21 17:16 [place] # (Auto) 0.65 K/uL (0.11-0.59) H 09/27/21 17:16 Eos # (Auto) 0.65 K/uL (0-0.5) H 09/27/21 17:16 Baso # (Auto) 0.02 K/uL (0-0.2) 09/27/21 17:16 Immature Gran # (Auto) 0.03 K/uL (0.00-0.02) H 09/27/21 17:16 Sodium 126 mmol/L (136-145) L 09/27/21 17:16 Potassium 4.7 mmol/L (3.5-5.1) 09/27/21 17:16 Chloride 92 mmol/L (98-107) L 09/27/21 17:16 Carbon Dioxide 23 mmol/L (21-32) 09/27/21 17:16 Anion Gap 13.0 (3-11) H 09/27/21 17:16 BUN 26 mg/dl (7-18) H 09/27/21 17:16 Creatinine 1.28 mg/dl (0.6-1.4) 09/27/21 17:16 Est Cr Clr Drug Dosing 82.4 ml/min 09/27/21 17:16 Est GFR ( Amer) 80.0 ml/min 09/27/21 17:16 Est GFR (Non-Af Amer) 69.1 ml/min 09/27/21 17:16 BUN/Creatinine Ratio 20.5 (10-20) H 09/27/21 17:16 Glucose 600 mg/dl (70-99) H* 09/27/21 17:16 POC Glucose 285 mg/dl (70-99) H 09/27/21 22:27 Calcium 9.5 mg/dl (8.5-10.1) 09/27/21 17:16 Total Bilirubin 0.8 mg/dl (0.2-1) 09/27/21 17:16 AST TNP 09/27/21 17:16 ALT 91 (12-78) H 09/27/21 17:16 Alkaline Phosphatase 116 U/L (45-117) 09/27/21 17:16 Troponin I < 0.015 ng/ml (0-0.045) 09/27/21 17:16 Total Protein 8.3 gm/dl (6.4-8.2) H 09/27/21 17:16 Albumin 4.0 gm/dl (3.4-5.0) 09/27/21 17:16 Globulin 4.3 gm/dl (2.5-4.0) H 09/27/21 17:16 Albumin/Globulin Ratio 0.9 (0.9-2) 09/27/21 17:16 Beta-Hydroxybutyric Acd TNP 09/27/21 17:16 Specimen Hemolysis 09/27/21 17:16 Urine Color Yellow 09/27/21 Unknown Urine Appearance Clear (Clear) 09/27/21 Unknown Urine pH 7.0 (4.5-7.5) 09/27/21 Unknown Ur Specific [place] 1.035 (1.000-1.030) H 09/27/21 Unknown Urine Protein Negative (Negative) 09/27/21 Unknown Urine Glucose (UA) 3+ (Negative) H 09/27/21 Unknown Urine Ketones Trace (Negative) H 09/27/21 Unknown Urine Blood Trace (Negative) H 09/27/21 Unknown Urine Nitrite Negative (Negative) 09/27/21 Unknown Urine Bilirubin Negative (Negative) 09/27/21 Unknown Urine Urobilinogen Negative (Negative) 09/27/21 Unknown Ur Leukocyte Esterase Negative (Negative) 09/27/21 Unknown Urine WBC (Auto) 0 /hpf (0-5) 09/27/21 Unknown Urine RBC (Auto) 0-4 /hpf (0-4) 09/27/21 Unknown U Hyaline Cast (Auto) 0 /lpf (0-5) 09/27/21 Unknown U Epithel Cells (Auto) 0-5 /lpf (0-5) 09/27/21 Unknown Urine Bacteria (Auto) Negative (Negative) 09/27/21 Unknown SARS-CoV-2, RNA, NAAT NEGATIVE (NEGATIVE) 09/27/21 20:51 Impressions Abdomen/Pelvis CT 09/27/21 18:03 CT abd pelvis IV con only CLINICAL HISTORY: Abdominal pain. History of previous diverticulitis. COMPARISON STUDY: 11/23/2017 CT DOSE: 548.48 mGy.cm TECHNIQUE: Standard CT of the Abdomen and Pelvis was performed with IV contrast. A dose lowering technique was utilized adhering to the principles of ALARA. Contrast Volume: Omnipaque 320, 94 ml. The patient did not receive oral contrast. FINDINGS: Lung base: The lung bases are clear. Abdominal cavity: There is no evidence for abdominal mass, adenopathy or ascites. There is diastases of the anterior abdominal wall muscles again seen with bulging of bowel loops. Surgical clips are present. Liver: There is homogeneous attenuation of the liver parenchyma. There is no evidence for enhancing mass lesion. Spleen: There is homogeneous attenuation of the splenic parenchyma. There is no enhancing mass lesion. Pancreas: There is homogeneous attenuation of the pancreatic parenchyma. There is no evidence for mass lesion or peripancreatic fluid collection. Gall Bladder: The gallbladder is well distended with no evidence for intraluminal calculi, wall thickening or pericholecystic edema. Adrenal glands: The adrenal glands are normal in size and attenuation. There is no evidence for enhancing mass lesion. Kidneys: There is homogeneous attenuation of the renal parenchyma bilaterally. There is no evidence for renal calculus or hydronephrosis. There is no evidence for enhancing mass. Bowel: The bowel loops are normally placed within the abdomen and pelvis without evidence for dilatation or obstruction. However, there are fluid-filled loops of small bowel seen within the mid to lower abdomen on the left. These findings suggest localized ileus versus gastroenteritis. There is mild sigmoid diverticulosis without evidence for diverticulitis. There are no inflammatory changes present. There is no evidence for free air. The appendix is not visual ized. Bladder: The bladder is within normal limits with no evidence for focal mass, calculus or diverticulum. However, there is mild diffuse thickening of the bladder wall which can be seen with cystitis. : There is no evidence for pelvic mass or adenopathy. There is no evidence for pelvic ascites. The patient is status post previous hysterectomy. Vasculature: There is no evidence for aneurysmal dilatation of the abdominal aorta. Osseous structures: There is no acute osseous pathology. IMPRESSION: 1. Evidence for mild ileus versus gastroenteritis. No bowel loop dilatation or obstruction. 2. Mild diverticulosis without evidence for recurrent diverticulitis. 3. Mild diffuse thickening of the bladder wall which can be seen with cystitis. 4. Additional nonacute findings are delineated above. ACT 112: Negative or not required by law. Electronically signed by: Colby Cohen M.D. 09/27/2021 7:48 PM Diagnostic Findings CXR - by my interpretation - poor inspiratory film, no obvious consolidation, PTX or volume overload ECG Additional Comments: EKG with NSR at 89, AT=359, QRS=80, GRv=937, no acute ischemic changes. No previous studies available for comparison. Code Status & VTE Plan VTE Prophylaxis Plan VTE Prophylaxis will be ordered: Yes PG Care Time/CCT Total # of Minutes Spent Total Time Spent with Patient: Total time spent is greater than 50% in coordination of care (as documented) at patient's floor/unit and/or counseling patient: Coding Level of Care Code 40488 Initial Inpt Care Lvl 2 Diagnoses Ileus K56.7 Diabetes E11.9 Depression F32.A
[2021-09-27] MEDS ORDERED: INSULIN GLARGINE SOLOSTAR 100 UNITS/ML 3 ML PEN SC STA (22:58)
[2021-09-27] MEDS ORDERED: LANTUS PER UNIT CHARGE SQ SCH (23:00)
[2021-09-27] MEDS ORDERED: POLYETHYLENE (MIRALAX) 17 GM PACK PO PRN (23:46)
[2021-09-27] MEDS ORDERED: MoRPHine SULFATE 4 MG/ML 1 ML CARP\\VIAL IV PRN (23:46)
[2021-09-27] MEDS ORDERED: GLUCOSE 40% GEL 15 GM TUBE PO PRN (23:46)
[2021-09-27] MEDS ORDERED: DOCUSATE SODIUM 100 MG CAP PO PRN (23:46)
[2021-09-27] MEDS ORDERED: GLUCAGON FOR INJ 1 MG VIAL SQ PRN (23:46)
[2021-09-27] MEDS ORDERED: GLUCOSE 10 TABS/TUBE PO PRN (23:46)
[2021-09-27] MEDS ORDERED: DEXTROSE 50% 50 ML SYRINGE IV PRN (23:46)
[2021-09-27] MEDS ORDERED: MELATONIN 3 MG TAB PO PRN (23:46)
[2021-09-27] MEDS ORDERED: ONDANSETRON 4 MG OD TAB PO PRN (23:46)
[2021-09-27] MEDS ORDERED: CARBOHYDRATES FOR HYPOGLYCEMIA PO PRN (23:46)
[2021-09-27] MEDS ORDERED: hydrOXYzine HCl 25 MG TAB PO PRN (23:46)
[2021-09-28 00:19] LABS: Base Excess VBG -0.6 mEq/L; HCO3 VBG 24 mmol/L; Oxygen Saturation VBG 89.9 %; PCO2 VBG 40 mmHg (38-50); PO2 VBG 57 mmHg
[2021-09-28 00:40] LABS: Calcium 8.2 mg/dl (8.5-10.1); Creatinine Clr Calc Pharmacy 140.7 ml/min; Est GFR (African American) 132.1 ml/min; Est GFR (Non-African American) 113.9 ml/min; Phosphorus 3.6 mg/dl (2.5-4.9)
[2021-09-28 01:07] LABS: Magnesium 2.2 mg/dl (1.8-2.4)
[2021-09-28 01:10] LABS: Potassium 3.6 mmol/L (3.5-5.1)
[2021-09-28] MEDS: ACETAMINOPHEN 325 MG TAB PO PRN ×2 (01:22→13:31)
[2021-09-28] MEDS: LACTATED RINGER'S 1,000 ML IV SCH ×3 (01:26→09:10)
[2021-09-28] MEDS: INSULIN ASPART PER UNIT SC SCH ×3 (01:30→13:12)
[2021-09-28] MEDS: MoRPHine SULFATE 2 MG/ML CARP IV PRN ×2 (03:13→09:08)
[2021-09-28 05:53] LABS: Basophils # (auto) 0.02 K/uL (0-0.2); Basophils % (auto) 0.3 %; Eosinophils # (auto) 0.64 K/uL (0-0.5); Eosinophils % (auto) 8.2 %; Hematocrit (blood only) 35.5 % (42-52); Hemoglobin 13.1 g/dL (14.0-18.0); Immature Granulocytes # (auto) 0.02 K/uL (0.00-0.02); Immature Granulocytes % (auto) 0.3 %; Lymphocytes # (auto) 2.32 K/uL (1.2-3.4); Lymphocytes % (auto) 29.9 %; Mean Corpuscular Hemoglobin 35.1 pg (25-34); Mean Corpuscular Hgb Conc 36.9 g/dL (32-36); Mean Corpuscular Volume 95.2 fL (80-100); Mean Platelet Volume 11.2 fL (7.4-10.4); Monocytes # (auto) 0.52 K/uL (0.11-0.59); Monocytes % (auto) 6.7 %; Neutrophils # (auto) 4.24 K/uL (1.4-6.5); Neutrophils % (auto) 54.6 %; Platelet Count 258 K/uL (130-400); RDW Standard Deviation 41.8 fL (36.4-46.3); Red Blood Count 3.73 M/uL (4.7-6.1); White Blood Count 7.76 K/uL (4.8-10.8)
[2021-09-28 06:43] LABS: BUN Creatinine Ratio 21.4 (10-20); Calcium 8.6 mg/dl (8.5-10.1); Creatinine Clr Calc Pharmacy 144.5 ml/min; Est GFR (African American) 133.5 ml/min; Est GFR (Non-African American) 115.2 ml/min
[2021-09-28 07:00] LABS: Potassium 3.5 mmol/L (3.5-5.1)
--- NOTE | 2021-09-28 07:20 | XRay Report ---
XR chest 1V portable CLINICAL HISTORY: elevated WBC COMPARISON STUDY: Chest radiograph December 07, 2017. FINDINGS: Lung volumes are at the lower limits of normal. Mild bibasilar opacities favor atelectasis. There is no pneumothorax or pleural effusion. Cardiac size is normal. Mediastinal contours are lilibeth l. There is no evidence for pulmonary edema. IMPRESSION: Mild bibasilar opacities which favor atelectasis. ACT 112: Negative or not required by law. Electronically signed by: Ezequiel Simpson M.D. 09/28/2021 7:19 AM
[2021-09-28 07:27] LABS: Estimated Average Glucose 186 mg/dl; Hemoglobin A1C 8.1 % (4.5-5.6)
--- NOTE | 2021-09-28 07:39 | XRay Report ---
KUB CLINICAL HISTORY: ?obstruction vs ileus COMPARISON STUDY: CT of the abdomen and pelvis September 27, 2021. FINDINGS: The bowel gas pattern is normal. No radiographic evidence for a bowel obstruction. Right pe lvic desiccation reflects a phlebolith. Although sensitivity is diminished on this supine exam, there is no evidence for free air. IMPRESSION: No evidence for a bowel obstruction. ACT 112: Negative or not required by law. Electronically signed by: Ezequiel Simpson M.D. 09/28/2021 7:37 AM
--- NOTE | 2021-09-28 08:12 | Electrocardiogram Report ---
Test Reason : Blood Pressure : / mmHG Vent. Rate : 089 BPM Atrial Rate : 089 BPM P-R Int : 144 ms QRS Dur : 080 ms QT Int : 370 ms P-R-T Axes : 039 050 043 degrees QTc Int : 450 ms Poor data quality, interpretation may be adversely affected Normal sinus rhythm Normal ECG No previous ECGs available Confirmed by Jefferson Cuellar ([id number]) on 09/28/2021 8:12:14 AM Referred By: REFERRED SELF Confirmed By:Jefferson Cuellar
[2021-09-28] MEDS ORDERED: INSULIN GLARGINE SOLOSTAR 100 UNITS/ML 3 ML PEN SC SCH (09:00)
[2021-09-28] MEDS ORDERED: NICOTINE 21 MG/24 HR TDSY TD SCH (09:00)
--- NOTE | 2021-09-28 09:54 | Psychiatric Consultation ---
Date of Consultation September 28, 2021 Impression / Recommendations Impression This is a 41 yo with a history of depression and alcohol use admitted medically. Diagnostically consistent with alcohol use disorder, moderate, in controlled environment as well as unspecified depression likely alcohol-induced depression. His mood has significantly improved since he stopped alcohol use. He was treated with two antipsychotic medications at [facility] but based on record review and his report it's unclear to me why, as there does not appear to be any history of BPAD, primary psychotic disorder nor enough trials of SSRI/SNRI to warrant antipsychotic use for mood augmentation. Additionally given his new diagnosis of diabetes and elevated lipid panel the risks of antipsychotic use outweigh potential benefits for mood especially since it's off-label FDA use. Jerry consents to tapering Thorazine to discontinuation, reviewed side effects of thorazine use with him including but not limited to metabolic effects, QTc, movement side effects, dry mouth/anticholinergic effects. If mood symptoms re- emerge after Thorazine is discontinued then will consider starting SSRI, leaxpro previously helpful, for now Jerry prefer to avoid being on any psychiatric medication. Acute risk of self-harm is low given denial of SI and no current mood symptoms and avoidance of alcohol use. At this point I do not see that he meets criteria for inpatient psychiatric hospitalization but will determine dis charge versus return to the [facility] once he's medically stabilized. If he discharges then would likely benefit from outpatient therapy through dual- diagnosis mood and substance use approach. 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 Psychiatry was consulted for recommendations regarding psychiatry medication. Chief Complaint "My mood has been good since I stopped drinking and stopped having withdrawals". History of Present Illness Jerry describes a history of significant alcohol use since age 14 (drinks 30 cans of beer per day) and a history of periods of depression. A few years ago he was prescribed psychiatric medications including Wellbutrin, Lexapro, Abilify and gabapentin by his PCP but he stopped these two years ago when his PCP retired. Since then he has been off all psychiatric medications. However, his mood started to worsen over the last 1-2 months which he attributes to grieving the of his step-mother who 3 months ago. He was feeling more depressed and thought it might be worthwhile to try medication again so he sought treatment at [facility] for inpatient psychiatry. States he stopped drinking alcohol one week prior to his [facility] admission and experienced some withdrawal symptoms of shakiness but "not too bad". He was admitted to the [facility] on 09/17/22 and was treated with haldol and then thorazine. He reports being on thorazine for the last three days and states he isn't sure why the psychiatrist started him on it. He's experienced side effects of dry mouth and would like to stop the thorazine. Reports stable mood which he attributes to having stopped drinking alcohol. PHQ-9 score of 0. Reports "good" mood. Reports stable sleep and strong appetite (he's currently NPO). Psychiatric ROS notable for denial of hx ivonne, no current or hx of psychosis sx, denies SI, no hx of suicide attempts. Reviewed documentation from [facility] from H&P on 09/17/21: Patient with hx of diverticulitis s/p bowel resection 2-3 years ago. Cigarette use. Hx alcohol use in the past last drank 3 weeks ago. History psychiatric meds prior to [facility] admission of wellbutrin 300mg, abilify, lexapro, vistaril, thiamine, folic acid, and gabapentin TID (dosages not documented). Transfer form notes psychiatric diagnosis of MDD and that thorazine 100mg TID was started for psychosis. He was not receiving any other scheduled medications but had lorazepam available for alcohol withdrawal as well as melatonin and vistaril. Labwork on 09/25/21 showed glucose of 446 and elevated ALT, as well as elevated cholesterol (249), triglycerides (228), low HDL, and high LDL (171). One progress note received from 09/18/21 which does not identify a psychiatric diagnosis but does not that Jerry was not interested in treatment, had irritable mood and constricted affect and denied SI, HI and had no AH or VH. Past Psychiatric History Previous Psych History: denies any prior diagnoses Outpatient Services: none currently Previous Psych Admissions: [facility] 09/17/22 for depression; once as a child Do You Have Access To A Gun?: No (guns are locked and only his brother has access) Past Medication Trials: see HPI, no other trials Allergies Allergy/AdvReac Type Severity Reaction Status Date / Time No Known Allergies Allergy Mild Unverified 09/27/21 21:15 Home Medications Medication Instructions Recorded Confirmed Type Magnesium Hydroxide 8% 30 ml PO DAILY PRN 09/27/21 09/27/21 History chlorpromazine 100 mg tablet 100 mg PO TID 09/27/21 09/27/21 History diphenhydramine HCl 50 mg capsule 50 mg PO Q6 PRN 09/27/21 09/27/21 History hydroxyzine pamoate 50 mg capsule 50 mg PO Q6 PRN 09/27/21 09/27/21 History ibuprofen 600 mg tablet 600 mg PO TID PRN 09/27/21 09/27/21 History lorazepam 1 mg tablet 1 mg PO Q6 PRN 09/27/21 09/27/21 History melatonin 3 mg tablet 9 mg PO HS PRN 09/27/21 09/27/21 History ondansetron 4 mg disintegrating 4 mg PO Q6H PRN 09/27/21 09/27/21 History tablet Family History denies Substance Abuse History alcohol use since age 14 with only brief periods of sobriety, stopped drinking ~mid August 2021. Prior was drinking 30 cans of beer per day. Denies legal consequences. Personal History Living Arrangements: Home (with girlfriend in [place]) Employment Status: Disabled (states due to alcohol use) Beliefs That Will Affect Care: None History of Legal Problems: denies Patient History Medical History Alcohol abuse in remission Depression Diabetes Surgical History History of chest tube placement History of colostomy History of colostomy reversal Family History Other No significant family history Social History Smoking Status: Current every day smoker Tobacco Type: Cigarettes Hx Alcohol Use: Yes Alcohol type: beer Hx Substance Use: No Preferred Language: Russian Database Security Administrator Required: No Beliefs That Will Affect Care: None Current Living Situation: Spouse Feels Safe at Home: Yes Safety Concerns: Feels Safe At This Time Physical Exam Psychiatric: Orientation: alert Apperance: appropriately dressed and appropriately groomed Eye Contact: good eye contact Motor Behavior: no ab normal motor movements Speech: normal rate/rhythm/volume of speech Affect: + constricted affect Mood: no depressed mood and no anxious mood Thought Process: goal directed thought process Thought Content: reality based without delusions Suicidal Thoughts: denies suicidal thoughts Homicidal Thoughts: denies homicidal thoughts Hallucinations: no auditory hallucinations and no visual hallucinations Cognition: recent memory grossly intact, remote memory grossly intact, attention grossly intact and language grossly intact Estimated Intelligence: consistent with education level Insight: + fair insight Judgement: + fair judgement Vital Signs (Past 24 Hours): Last Vital Signs Temp 36.7 C 09/28/21 03:08 Pulse 87 09/28/21 03:08 Resp 16 09/28/21 03:08 BP 110/74 09/28/21 03:08 Pulse Ox 95 09/28/21 03:08 Review of Systems All systems reviewed & are unremarkable except as noted in HPI & below Results & Data (PSY) Laboratory Results Reviewed labwork from [facility] see HPI-elevated lipid panel and glucose Medications Administered Acetaminophen (Acetaminophen 325 Mg Tab) 650 mg PO Q4H PRN PRN Reason: pain/fever Stop: 10/27/21 23:45 Last Admin: 09/28/21 01:22 Dose: 650 mg Documented by: [id number] Chlorpromazine HCl (Chlorpromazine Hcl 100 Mg Tab) 100 mg PO TID ELOISA Stop: 10/28/21 08:59 Last Admin: 09/28/21 09:28 Dose: 100 mg Documented by: [id number] Lactated Ringer's (Lr) 1,000 mls @ 200 mls/hr IV .Q5H ELOISA Stop: 09/28/21 14:45 Last Admin: 09/28/21 09:10 Dose: 200 mls/hr Documented by: [id number] Infusion: 09/28/21 09:10 Dose: 200 mls/hr Documented by: [id number] Admin: 09/28/21 05:48 Dose: 200 mls/hr Documented by: [id number] Infusion: 09/28/21 05:48 Dose: 200 mls/hr Documented by: [id number] Admin: 09/28/21 01:26 Dose: 200 mls/hr Documented by: [id number] Insulin Aspart (Insulin Aspart Per Unit) 0 units SC Q6 [facility] Stop: 10/28/21 00:44 Last Admin: 09/28/21 06:26 Dose: 2 units Documented by: [id number] Cosigned by: [id number] Admin: 09/28/21 01:30 Dose: 2 units Documented by: [id number] Cosigned by: [id number] Insulin Glargine (Insulin Glargine Solostar 100 Units/Ml 3 Ml Pen) 9 units SC BID [facility] Stop: 10/28/21 08:59 Last Admin: 09/28/21 09:11 Dose: 9 units Documented by: [id number] Cosigned by: [id number] Morphine Sulfate (Morphine Sulfate 2 Mg/Ml Carp) 2 mg IV Q3H PRN PRN Reason: Pain (1,2,3,4,5) & Pre PT Stop: 10/11/21 23:45 Last Admin: 09/28/21 09:08 Dose: 2 mg Documented by: [id number] Admin: 09/28/21 03:13 Dose: 2 mg Documented by: [id number] Nicotine (Nicotine 21 Mg/24 Hr Tdsy) 21 mg TD QAM [facility] Stop: 10/28/21 08:59 Last Admin: 09/28/21 09:10 Dose: 21 mg Documented by: [id number] Coding Level of Care Code 73661 Inpt Consult Level 3 Diagnoses Alcohol use disorder, moderate, in controlled environment F10.20 Alcohol-induced depressive disorder with moderate or severe use disorder F10.24
[2021-09-28] MEDS ORDERED: POLYETHYLENE (MIRALAX) 17 GM PACK PO SCH (11:00)
[2021-09-28] MEDS ORDERED: chlorproMAZINE HCL 25 MG TAB PO SCH (14:00)
--- NOTE | 2021-09-28 15:13 | Discharge Summary ---
Date of Service September 28, 2021 Admission HPI Per Admitting Provider Jerry Morrison is a 41yo male presenting with new DM, hyperglycemia with BSG > 600. He has a history of diverticulitis s/p sigmoid resection with Pepe's pouch and colostomy placement in 2018 complicated by abscess formation s/p drainage and reversal of colostomy. History of empyema s/p PleurX catheter placement with TPA and Pulmozyme. Patient with history of alcoholism s/p rehabilitation - has been sober x 2 months. He has been at [facility] for the last several days for medication adjustment and was started on Thorazine appx 1 week ago. He carries a diagnosis of MDD with aggressive behavior. Patient developed blurry vision and difficulty focusing his vision yesterday. He reports polyuria and polydipsia and dry mouth. He also has LLQ abdominal pain, constipation and rectal pain. He had a small hard bowel movement this afternoon after straining for appx 40 minutes with sharp rectal discomfort following. Patient's blood sugar was checked at [facility] today and read "HI" so he was referred to the ER. In the ER he was found to have elevated blood sugar of 600. He was administered 10u IV insulin and 2L NSS with repeat blood sugar of 285. Patient has no previous diagnosis of DM. He does recall appx 3 years ago while in rehab for EtOH abuse that he had high blood sugars - possibly in the 200's to 300's. He does not follow routinely with a PCP. Patient endorses abdominal pain as above, LLQ also with nausea. No vomiting, no diarrhea. He has some mild chest discomfort but otherwise denies cough, SOB, palpitations, fever, chills. No additional complaints at this time. He denies auditory or visual hallucinations. Denies SI or HI. ER Course: Morphine mg IV, Insulin regular 10u IV, NSS x 2L, Chlorpromazine 100mg po Lantus 9u x 1 Discharge Data Allergies Allergy/AdvReac Type Severity Reaction Status Date / Time No Known Allergies Allergy Mild Unverified 09/27/21 21:15 Consultations 09/27/21 20:39 ED Decision to Admit Stat 09/27/21 21:39 Consult Psychiatry Routine Ordered Studies 09/27/21 18:03 CT abd pelvis IV con only Stat Hospital Course (1) Diabetes: 41yo male presenting with one day of blurry vision, difficulty focusing vision as well as abdominal discomfort, polyuria and polydipsia. Found to be hyperglycemic with BSG of 600, mild anion gap metabolic acidosis with Gap=13, serum HCO3 within normal range at 23. Patient is mentating well. He has no prior diagnosis of diabetes but recalls being told that his blood sugar was high possibly 2 years ago. Patient was also recently started on Thorazine which can be associated with worsened hyperglycemia through impairment of glucose metabolism. He has received 10u of IV insulin as well as 2L of crystalloid NSS resuscitation. Repeat blood sugar improved to 285. VBG with normal pH of 7.4 after IV insulin and NSS. Ir=355, corrects to 138 for hyperglycemia UA grossly negative for protein -Admit to medical with telemetry -Repeat BMP pending - assess anion gap -Check Hgb A1C -Check serum Osm -Check Lipase -Check Lipid panel -Will initiate Lantus 9u BID (0.2u/kg) and ISS -Check BSG q hourly until stable and improved -Diabetes education consultation appreciated -Patient will need to establish with a PCP for ongoing followup (2) Ileus: Patient with LLQ abdominal discomfort. He reports constipation as well. CT with possible focal ileus. Patient with history significant for multiple bowel surgeries. -IVF - LR at 200mL/hr x 2 liters -Bowel regimen as needed - colace and Miralax -KUB in AM to evaluate for obstruction -Pain control with Morphine PRN -Zofran PRN nausea (3) Depression: Patient reports history of depression only. He states he is at [facility] presently for medication adjustments. He denies SI/HI, denies VH/AH. He was started on Thorazine 100mg po TID appx 1 week ago. Patient states he is doing well on this medication and feels that his mood is improved. Uncertain what other psychiatric diagnoses he has to warrant treatment with Thorazine? Patient states he has not been on any psychiatric medications prior to Thorazine. -Continue Thorazine 100mg po TID. Some concern of worsening blood sugars. -Psychiatry consultation appreciated re: medication management F/E/N - LR at 200mL/hr x 2 liters, monitor electrolytes BMP q 4 hours, NPO for now. Nicotine patch - patient smokes appx 1ppd Ppx - SCDs, ambulation Code - Full code per discussion with patient Dispo - Admission to medical with telemetry Discharge Plan Discharge Items Patient Disposition: Home - Self-Care Reason For Visit: NEW DM, HYPERGLYCEMIA Discharge Diagnosis: New onset diabetes mellitus with hyperglycemia, Major depressive disorder Condition on Discharge: Fair Activity: Resume your previous activity Non-emergency contact: Primary Care Provider and Psychiatrist Call non-emergency contact if: you have any medication questions and your symptoms worsen Follow-up/Referrals: PCP,NO [Primary Care Provider] - (The Nurse Navigator from [facility] will help get you set up with a new primary care provider.) Diet: Carb Consistent or DM2 Addtl Attending Provider Instructions: You were admitted for severely elevated blood glucose levels and dehydration. This means that you have diabetes, but it may have been worsened by the new medication you were taking from the [facility]. That medication has been stopped by the Psychiatrist at [facility]. You were treated here with IV fluids and insulin. You will be started on metformin on discharge to be taken twice a day to lower your blood sugar. You might benefit from staying on insulin, but at this time you can just take the metformin and follow up with your new PCP within 2 weeks. Please check your blood sugar twice a day in the morning and evening. Your cholesterol levels are also quite high and you were started on a medication to lower this to reduce your risk for heart attack and stroke. It is important that you follow up with Psychiatry as an outpatient, and to remain abstinent from drinking any alcohol. If you start to feel severely depressed, or have thoughts of hurting yourself or others, please call for help right away. Pending Studies at Discharge: No Stand-Alone Forms: My [facility], Smoking Cessation Medications and DC Order Prescriptions: New metformin 1,000 mg tablet extended release 24hr 1,000 mg PO BID Qty: 60 RF: 0 atorvastatin 40 mg tablet 40 mg PO DAILY Qty: 30 RF: 0 (DME) lancets [OneTouch Delica Lancets] 33 gauge misc See Rx Instructions .Route Qty: 100 RF: 0 (DME) OneTouch Verio test strips Strip See Rx Instructions .Route Qty: 100 RF: 0 Continued ibuprofen 600 mg Tablet 600 mg PO TID PRN (Reason: Pain) RF: 0 hydroxyzine pamoate 50 mg Capsule 50 mg PO Q6 PRN (Reason: Anxiety) Qty: 10 RF: 0 Discontinued diphenhydramine HCl 50 mg Capsule 50 mg PO Q6 PRN (Reason: EPS) RF: 0 chlorpromazine 100 mg Tablet 100 mg PO TID RF: 0 melatonin 3 mg Tablet 9 mg PO HS PRN (Reason: Sleep) RF: 0 lorazepam 1 mg Tablet 1 mg PO Q6 PRN (Reason: ALCOHOL WITHDRAWL) RF: 0 ondansetron 4 mg Tablet,Disintegrating 4 mg PO Q6H PRN (Reason: Nausea) RF: 0 Magnesium Hydroxide 8% 30 ml PO DAILY PRN (Reason: Constipation) RF: 0 Discharge Orders: Discharge Order (Routine); Ordered 09/28/21 Ordered By: Nahomi Anderson Admission Data Admit Date/Time: 09/27/21 21:37 Attending Provider: Nahomi Anderson Admit Provider: Nohemi Zavala Primary Care Provider: PCP,NO Other Providers: Luz Poole ; Ellie Freitas ; Ernestine Mariano ; Manfred Garcia ; Nohemi Zavala Coding Diagnoses Diabetes E11.9 Ileus K56.7 Depression F32.A
== END 2021-09-28 15:29 | disposition home or self-care (01) ==
LOC: ED 14:55 → EDINP 21:37 → SUATTDRO 21:37 → INTOOBSV 21:37 → EDINP 09-28 15:23